=== PATIENT | female | born 1960 | race African-American/Black ===

== ENCOUNTER 2016-10-07 12:49 | Inpatient (IN) | payer SELFPAY ==
[~2016-10-07] VITALS: Ht 167.6 cm; Wt 76.0 kg
[2016-10-07] MEDS ORDERED: IPRATRPIUM/ALBUTEROL 0.5/2.5MG 3 ML NEBU. NEB ONE (13:30)
--- NOTE | 2016-10-07 13:31 | PHYS DOC ---
Past Medical History Past Medical History: No Pertinent History Past Surgical History: No Surgical History Alcohol Use: Occasionally Drug Use: None Adult General Chief Complaint Chief Complaint: MULTIPLE COMPLAINTS [facility] HPI Patient is a 56 year old -[place] female who presents with shortness of breath with exertion, nonproductive cough, right ear pain. She states she does smoke one pack of cigarettes lasts her one week she's done that for greater than 20 years. She states she sees [facility] for her healthcare is on no medications. She's never had have breathing treatments. She states she feels like she is wheezing. She denies any immobility, chest pain, or calf discomfort. Review of Systems Review of Systems Constitutional: Denies fever or chills [] Eyes: Denies change in visual acuity, redness, or eye pain [] HENT: Denies nasal congestion or sore throat [] Respiratory: Positive for cough and shortness of breath Cardiovascular: No additional information not addressed in HPI [] GI: Denies abdominal pain, nausea, vomiting, bloody stools or diarrhea [] : Denies dysuria or hematuria [] Musculoskeletal: Denies back pain or joint pain [] Integument: Denies rash or skin lesions [] Neurologic: Denies headache, focal weakness or sensory changes [] Endocrine: Denies polyuria or polydipsia [] Current Medications Current Medications Current Medications Medications (Trade) Dose Ordered Sig/Payal Start Time Stop Time Status Last Admin Dose Admin Albuterol/ Ipratropium (Duoneb) 3 ml 1X ONCE 10/07/16 13:30 10/07/16 13:31 DC 10/07/16 14:01 3 ML Allergies Allergies Allergies Coded Allergies Type Severity Reaction Last Updated Verified No Known Drug Allergies 10/02/15 No Physical Exam Physical Exam Constitutional: Well developed, well nourished, no acute distress, non-toxic appearance. [] HENT: Normocephalic, atraumatic, bilateral external ears normal, oropharynx moist, no oral exudates, nose normal. [] Eyes: PERRLA, EOMI, conjunctiva normal, no discharge. [] Neck: Normal range of motion, no tenderness, supple, no stridor. [] Cardiovascular:Heart rate regular rhythm, no murmur [] Lungs & Thorax: Bilateral breath sounds clear to auscultation, tachypnea, no wheezing Abdomen: Bowel sounds normal, soft, no tenderness, no masses, no pulsatile masses. [] Skin: Warm, dry, no erythema, no rash. [] Back: No tenderness, no CVA tenderness. [] Extremities: No tenderness, no cyanosis, no clubbing, ROM intact, no edema. [] Neurologic: Alert and oriented X 3, normal motor function, normal sensory function, no focal deficits noted. [] Psychologic: Affect normal, judgement normal, mood normal. [] Current Patient Data Vital Signs Vital Signs Date Time Temp Pulse Resp B/P (MAP) Pulse Ox O2 Delivery O2 Flow Rate FiO2 10/07/16 14:11 102 18 153/96 (115) 95 Room Air 10/07/16 13:11 97.8 97.8 Lab Values Laboratory Tests Test 10/07/16 13:40 10/07/16 14:04 White Blood Count 8.7 x10^3/uL (4.0-11.0) Red Blood Count 4.82 x10^6/uL (3.50-5.40) Hemoglobin 15.1 g/dL (12.0-15.5) Hematocrit 46.1 % (36.0-47.0) Mean Corpuscular Volume 96 fL (79-100) Mean Corpuscular Hemoglobin 31 pg (25-35) Mean Corpuscular Hemoglobin Concent 33 g/dL (31-37) Red Cell Distribution Width 13.7 % (11.5-14.5) Platelet Count 315 x10^3/uL (140-400) Neutrophils (%) (Auto) 72 % (31-73) Lymphocytes (%) (Auto) 13 % (24-48) L Monocytes (%) (Auto) 14 % (0-9) H Eosinophils (%) (Auto) 1 % (0-3) Basophils (%) (Auto) 1 % (0-3) Neutrophils # (Auto) 6.3 x10^3uL (1.8-7.7) Lymphocytes # (Auto) 1.1 x10^3/uL (1.0-4.8) Monocytes # (Auto) 1.2 x10^3/uL (0.0-1.1) H Eosinophils # (Auto) 0.1 x10^3/uL (0.0-0.7) Basophils # (Auto) 0.0 x10^3/uL (0.0-0.2) Prothrombin Time 14.4 SEC (11.7-14.0) H Prothrombin Time INR 1.2 (0.8-1.1) H D-Dimer (Amanda) 3.16 ug/mlFEU (0.00-0.50) H Sodium Level 140 mmol/L (136-145) Potassium Level 4.7 mmol/L (3.5-5.1) Chloride Level 100 mmol/L (98-107) Carbon Dioxide Level 28 mmol/L (21-32) Anion Gap 12 (6-14) Blood Urea Nitrogen 7 mg/dL (7-20) Creatinine 0.7 mg/dL (0.6-1.0) Estimated GFR (Cockcroft-Gault) 104.0 Glucose Level 104 mg/dL (70-99) H Calcium Level 11.1 mg/dL (8.5-10.1) H Magnesium Level 1.7 mg/dL (1.8-2.4) L Total Bilirubin 0.8 mg/dL (0.2-1.0) Direct Bilirubin 0.2 mg/dL (0.0-0.2) Aspartate Amino Transferase (AST) 47 U/L (15-37) H Alanine Aminotransferase (ALT) 38 U/L (14-59) Alkaline Phosphatase 134 U/L (46-116) H Creatine Kinase 59 U/L (26-192) Creatine Kinase MB (Mass) 0.5 ng/mL (0.0-3.6) Creatine Kinase MB Relative Index % (0-4) Troponin I Quantitative < 0.017 ng/mL (0.000-0.055) NL-Wpe-R-Type Natriuretic Peptide 155 pg/mL (0-124) H Total Protein 8.7 g/dL (6.4-8.2) H Albumin 3.4 g/dL (3.4-5.0) Lipase 66 U/L (73-393) L Thyroid Stimulating Hormone (TSH) 3.972 uIU/mL (0.358-3.74) H Urine Collection Type Unknown Urine Color [place] Urine Clarity Turbid Urine pH 5.5 Urine Specific [place] 1.025 Urine Protein Negative mg/dL (NEG-TRACE) Urine Glucose (UA) Negative mg/dL (NEG) Urine Ketones (Stick) 40 mg/dL (NEG) Urine Blood Negative (NEG) Urine Nitrite Negative (NEG) Urine Bilirubin Moderate (NEG) Urine Urobilinogen Dipstick 1.0 mg/dL (0.2 mg/dL) Urine Leukocyte Esterase Small (NEG) Urine RBC 0 /HPF (0-2) Urine WBC 1-4 /HPF (0-4) Urine Squamous Epithelial Cells Mod /LPF Urine Bacteria Moderate /HPF (0-FEW) Urine Mucus Mod /LPF Urine Opiates Screen Neg (NEG) Urine Methadone Screen Neg (NEG) Urine Barbiturates Neg (NEG) Urine Phencyclidine Screen Neg (NEG) Urine Amphetamine/Methamphetamine Neg (NEG) Urine Benzodiazepines Screen Neg (NEG) Urine Cocaine Screen Neg (NEG) Urine Cannabinoids Screen Neg (NEG) Urine Ethyl Alcohol Neg (NEG) Laboratory Tests 10/07/16 13:40 Laboratory Tests 10/07/16 13:40 EKG EKG EKG shows sinus rhythm with rate of [address] beats were without any ST elevations or T -wave inversions, normal axis, QTC 459 ms, as interpreted by me. Radiology/Procedures Radiology/Procedures [facility] [address] [place] [address] IMAGING REPORT Signed PATIENT: AR SANTAMARIA ACCOUNT: [id number] : 1960 LOCATION: ER AGE: 56 SEX: F EXAM STATUS: REG ER ORD. PHYSICIAN: LAZARO JULES MD REASON: soa PROCEDURE: PORTABLE CHEST 1V Portable AP upright chest x-ray performed at 1333 History: Shortness of air Comparison: May 23, 2004. Findings: There is a large left-sided pleural effusion occupying 3/4ths of the left pleural space. Certainly, an underlying pneumonia or neoplasm are possible. Right lung field is clear. No pneumothorax is seen. The right heart border and right mediastinal border are otherwise unremarkable. IMPRESSION: Large left-sided pleural effusion. DICTATED and SIGNED BY: FLORI JOYA MD DATE: 10/07/16 1342 CC: LAZARO JULES MD; NO PCP ~ ] Impressions: Short of breath Pleural effusion Elevated d-dimer Course & Med Decision Making Course & Med Decision Making Pertinent Labs and Imaging studies reviewed. (See chart for details) Patient has no past medical history but she does not have a primary care physician. She does use tobacco about one pack a week for the last 20 years. She is an elevated d-dimer however I suspect that secondary to her large pleural effusion. I spoke with interventional radiology regarding thoracentesis they deferred to pulmonary. I spoke with Dr. Long regarding consultation for the effusion admitted the patient to . I informed the admitting physician about the elevated d-dimer and the remainder of her labs and vital signs. Patient is moderately tachypneic however she stable at this time. She did receive an albuterol treatment without any improvement in her symptoms prior to the obtaining of the chest x-ray. Patient's in stable condition being admitted at this time. Dragon Disclaimer Dragon Disclaimer This electronic medical record was generated, in whole or in part, using a voice recognition dictation system. Departure Departure Referrals: NO PCP (PCP) Scripts No Active Prescriptions or Reported Meds LAZARO JULES MD Oct 07, 2016 13:31
--- NOTE | 2016-10-07 13:46 | RAD ---
Portable AP upright chest x-ray performed at 1333 History: Shortness of air Comparison: May 23, 2004. Findings: There is a large left-sided pleural effusion occupying 3/4ths of the left pleural space. Certainly, an underlying pneumonia or neoplasm are possible. Right lung field is clear. No pneumothorax is seen. The right heart border and right mediastinal border are otherwise unremarkable. IMPRESSION: Large left-sided pleural effusion.
[2016-10-07 13:48] LABS: BASO % 1 % (0-3); EOS % 1 % (0-3); HEMATOCRIT 46.1 % (36.0-47.0); HEMOGLOBIN 15.1 g/dL (12.0-15.5); LYMPH # 1.1 x10^3/uL (1.0-4.8); LYMPH % 13 % (24-48); MEAN CORPUSCULAR HEMOGLOBIN 31 pg (25-35); MEAN CORPUSCULAR HGB CONC 33 g/dL (31-37); MEAN CORPUSCULAR VOLUME 96 fL (79-100); MONO % 14 % (0-9); NEUT % 72 % (31-73); PLATELET COUNT 315 x10^3/uL (140-400); RED BLOOD COUNT 4.82 x10^6/uL (3.50-5.40); RED CELL DISTRIBUTION WIDTH 13.7 % (11.5-14.5); WHITE BLOOD COUNT 8.7 x10^3/uL (4.0-11.0)
[2016-10-07 13:59] LABS: CALCIUM 11.1 mg/dL (8.5-10.1); CREATININE 0.7 mg/dL (0.6-1.0); INR 1.2 (0.8-1.1); POTASSIUM 4.7 mmol/L (3.5-5.1); PROTHROMBIN TIME PATIENT 14.4 SEC (11.7-14.0)
[2016-10-07 14:05] LABS: ALBUMIN 3.4 g/dL (3.4-5.0); DIRECT BILIRUBIN 0.2 mg/dL (0.0-0.2); MAGNESIUM 1.7 mg/dL (1.8-2.4); TOTAL BILIRUBIN 0.8 mg/dL (0.2-1.0); TOTAL PROTEIN 8.7 g/dL (6.4-8.2)
--- NOTE | 2016-10-07 14:08 | EKG ---
[facility] [address] [place] [address] Test Date: 2016-10-07 Test Time: 13:49:19 Pat Name: AR SANTAMARIA Department: Room: Gender: F [employer]ures Tr[employer]: [place] : 1960 Requested By: LAZARO JULES Order Number: [id number] Reading MD: Kelly Corado Measurements Intervals [place] Rate: 88 P: 36 DE: 176 QRS: 3 QRSD: 78 T: 16 QT: 376 QTc: 459 Interpretive Statements SINUS RHYTHM NORMAL EKG Electronically Signed On 10-10-2016 21:02:58 CDT by Kelly Corado
[2016-10-07 14:13] LABS: BILIRUBIN,URINE MODERATE (NEG); GLUCOSE,URINE NEGATIVE (NEG); NITRITE,URINE NEGATIVE (NEG); PH,URINE 5.5; PROTEIN,URINE NEGATIVE (NEG-TRACE)
[2016-10-07 14:14] LABS: CKMB MASS 0.5 ng/mL (0.0-3.6)
[2016-10-07 14:15] LABS: CREATINE KINASE 59 U/L (26-192)
[2016-10-07 14:19] LABS: BARBITURATES NEG (NEG); BENZODIAZEPINES NEG (NEG); CANNABINOIDS NEG (NEG); COCAINE NEG (NEG); METHADONE NEG (NEG); OPIATES NEG (NEG); PHENCYCLIDINE NEG (NEG)
[2016-10-07 14:34] LABS: BACTERIA,URINE MODERATE /HPF (0-FEW); RBC,URINE 0 /HPF (0-2); SQUAMOUS EPITHELIAL CELL,UR MOD /LPF
[2016-10-07] MEDS ORDERED: DOCUSATE SODIUM 100 MG CAPSULE. PO PRN (15:45)
[2016-10-07] MEDS ORDERED: MAGNESIUM SULFATE 2GM 50 ML IV ONE (15:45)
[2016-10-07] MEDS ORDERED: NICOTINE 7MG PATCH. TD PRN (15:45)
[2016-10-07] MEDS ORDERED: hydrALAZINE 20 MG/ML VIAL. IVP PRN (15:45)
[2016-10-07] MEDS ORDERED: ACETAMINOPHEN 325 MG TABLET. PO PRN (15:45)
[2016-10-07] MEDS ORDERED: ALBUTEROL SULFATE 2.5 MG/3 ML NEBU. NEB PRN (15:45)
[2016-10-07] MEDS ORDERED: ONDANSETRON PF 4 MG/2 ML VIAL. IV PRN (15:45)
--- NOTE | 2016-10-07 15:48 | PDOC1 ---
History and Physical Date of Admission Date of Admission 10/07/16 Identification/Chief Complaint Chief Complaint chest pain, sob Problems: Source Source: Chart review, Patient History of Present Illness History of Present Illness Patient is a 56 year old -[place] female who presents with shortness of breath and chest pain for 4 days. Pt is a poor historian. no PCp, not taking any home meds, <1PPD. She said she feels left side chest pain, cough, no sputum, with sob, also has runny nose, ear pain, headache, right neck pain, sore throat, hard to swallow food and low po intake. Lost 2 pounds recently. Denies fever, chills, N/V, abd pain, constipation. no sick contact. diarrhea 2 days ago. ER cxr SHOWED large left side pleural effusion. Past Medical History Past Medical History none Past Surgical History Past Surgical History: No pertinent history Family History Family History stroke, lupus Social History Smoke: <1 pack per day ALCOHOL: other (every other day, 4 beers each time) Drugs: None Current Medications Current Medications Current Medications Medications (Trade) Dose Ordered Sig/Payal Start Time Stop Time Status Last Admin Dose Admin Albuterol/ Ipratropium (Duoneb) 3 ml 1X ONCE 10/07/16 13:30 10/07/16 13:31 DC 10/07/16 14:01 3 ML Allergies Allergies Allergies Coded Allergies Type Severity Reaction Last Updated Verified No Known Drug Allergies 10/02/15 No ROS Review of System CONSTITUTIONAL: No fever or chills EYES: No recent changes SKIN: No rash or itching CARDIOVASCULAR: No chest pain, syncope, palpitations, or edema RESPIRATORY: No SOB or cough GASTROINTESTINAL: No nausea, vomiting or abdominal pain NEUROLOGICAL: No headaches or weakness ENDOCRINE: No cold or heat intolerance GENITOURINARY: No urgency or frequency of urination MUSCULOSKELETAL: No back pain or joint pain LYMPHATICS: No enlarged lymph nodes PSYCHIATRIC: No anxiety or depression Physical Exam Physical Exam GEN.: No apparent distress. Alert and oriented. HEENT: Head is normocephalic, atraumatic NECK: Supple. LUNGS: left side severe decreased BS. no crackles or wheezing. HEART: RRR, S1, S2 present. Peripheral pulses intact ABDOMEN: Soft, nontender. Positive bowel sounds. EXTREMITIES: Without any cyanosis. NEUROLOGIC: Normal speech, normal tone PSYCHIATRIC: Normal affect, normal mood. SKIN: No ulcerations Vitals Vitals Vital Signs Date Time Temp Pulse Resp B/P (MAP) Pulse Ox O2 Delivery O2 Flow Rate FiO2 10/07/16 15:23 102 18 141/98 (112) 96 Room Air 10/07/16 13:11 97.8 97.8 Labs Labs Laboratory Tests Test 10/07/16 13:40 10/07/16 14:04 White Blood Count 8.7 x10^3/uL (4.0-11.0) Red Blood Count 4.82 x10^6/uL (3.50-5.40) Hemoglobin 15.1 g/dL (12.0-15.5) Hematocrit 46.1 % (36.0-47.0) Mean Corpuscular Volume 96 fL (79-100) Mean Corpuscular Hemoglobin 31 pg (25-35) Mean Corpuscular Hemoglobin Concent 33 g/dL (31-37) Red Cell Distribution Width 13.7 % (11.5-14.5) Platelet Count 315 x10^3/uL (140-400) Neutrophils (%) (Auto) 72 % (31-73) Lymphocytes (%) (Auto) 13 % (24-48) Monocytes (%) (Auto) 14 % (0-9) Eosinophils (%) (Auto) 1 % (0-3) Basophils (%) (Auto) 1 % (0-3) Neutrophils # (Auto) 6.3 x10^3uL (1.8-7.7) Lymphocytes # (Auto) 1.1 x10^3/uL (1.0-4.8) Monocytes # (Auto) 1.2 x10^3/uL (0.0-1.1) Eosinophils # (Auto) 0.1 x10^3/uL (0.0-0.7) Basophils # (Auto) 0.0 x10^3/uL (0.0-0.2) Prothrombin Time 14.4 SEC (11.7-14.0) Prothromb Time International Ratio 1.2 (0.8-1.1) D-Dimer (Amanda) 3.16 ug/mlFEU (0.00-0.50) Sodium Level 140 mmol/L (136-145) Potassium Level 4.7 mmol/L (3.5-5.1) Chloride Level 100 mmol/L (98-107) Carbon Dioxide Level 28 mmol/L (21-32) Anion Gap 12 (6-14) Blood Urea Nitrogen 7 mg/dL (7-20) Creatinine 0.7 mg/dL (0.6-1.0) Estimated GFR (Cockcroft-Gault) 104.0 Glucose Level 104 mg/dL (70-99) Calcium Level 11.1 mg/dL (8.5-10.1) Magnesium Level 1.7 mg/dL (1.8-2.4) Total Bilirubin 0.8 mg/dL (0.2-1.0) Direct Bilirubin 0.2 mg/dL (0.0-0.2) Aspartate Amino Transf (AST/SGOT) 47 U/L (15-37) Alanine Aminotransferase (ALT/SGPT) 38 U/L (14-59) Alkaline Phosphatase 134 U/L (46-116) Creatine Kinase 59 U/L (26-192) Creatine Kinase MB (Mass) 0.5 ng/mL (0.0-3.6) Creatine Kinase MB Relative Index % (0-4) Troponin I Quantitative < 0.017 ng/mL (0.000-0.055) RF-Aje-E-Type Natriuretic Peptide 155 pg/mL (0-124) Total Protein 8.7 g/dL (6.4-8.2) Albumin 3.4 g/dL (3.4-5.0) Lipase 66 U/L (73-393) Thyroid Stimulating Hormone (TSH) 3.972 uIU/mL (0.358-3.74) Urine Collection Type Unknown Urine Color [place] Urine Clarity Turbid Urine pH 5.5 Urine Specific [place] 1.025 Urine Protein Negative mg/dL (NEG-TRACE) Urine Glucose (UA) Negative mg/dL (NEG) Urine Ketones (Stick) 40 mg/dL (NEG) Urine Blood Negative (NEG) Urine Nitrite Negative (NEG) Urine Bilirubin Moderate (NEG) Urine Urobilinogen Dipstick 1.0 mg/dL (0.2 mg/dL) Urine Leukocyte Esterase Small (NEG) Urine RBC 0 /HPF (0-2) Urine WBC 1-4 /HPF (0-4) Urine Squamous Epithelial Cells Mod /LPF Urine Bacteria Moderate /HPF (0-FEW) Urine Mucus Mod /LPF Urine Opiates Screen Neg (NEG) Urine Methadone Screen Neg (NEG) Urine Barbiturates Neg (NEG) Urine Phencyclidine Screen Neg (NEG) Urine Amphetamine/Methamphetamine Neg (NEG) Urine Benzodiazepines Screen Neg (NEG) Urine Cocaine Screen Neg (NEG) Urine Cannabinoids Screen Neg (NEG) Urine Ethyl Alcohol Neg (NEG) Laboratory Tests Test 10/07/16 13:40 10/07/16 14:04 White Blood Count 8.7 x10^3/uL (4.0-11.0) Red Blood Count 4.82 x10^6/uL (3.50-5.40) Hemoglobin 15.1 g/dL (12.0-15.5) Hematocrit 46.1 % (36.0-47.0) Mean Corpuscular Volume 96 fL (79-100) Mean Corpuscular Hemoglobin 31 pg (25-35) Mean Corpuscular Hemoglobin Concent 33 g/dL (31-37) Red Cell Distribution Width 13.7 % (11.5-14.5) Platelet Count 315 x10^3/uL (140-400) Neutrophils (%) (Auto) 72 % (31-73) Lymphocytes (%) (Auto) 13 % (24-48) Monocytes (%) (Auto) 14 % (0-9) Eosinophils (%) (Auto) 1 % (0-3) Basophils (%) (Auto) 1 % (0-3) Neutrophils # (Auto) 6.3 x10^3uL (1.8-7.7) Lymphocytes # (Auto) 1.1 x10^3/uL (1.0-4.8) Monocytes # (Auto) 1.2 x10^3/uL (0.0-1.1) Eosinophils # (Auto) 0.1 x10^3/uL (0.0-0.7) Basophils # (Auto) 0.0 x10^3/uL (0.0-0.2) Prothrombin Time 14.4 SEC (11.7-14.0) Prothromb Time International Ratio 1.2 (0.8-1.1) D-Dimer (Amanda) 3.16 ug/mlFEU (0.00-0.50) Sodium Level 140 mmol/L (136-145) Potassium Level 4.7 mmol/L (3.5-5.1) Chloride Level 100 mmol/L (98-107) Carbon Dioxide Level 28 mmol/L (21-32) Anion Gap 12 (6-14) Blood Urea Nitrogen 7 mg/dL (7-20) Creatinine 0.7 mg/dL (0.6-1.0) Estimated GFR (Cockcroft-Gault) 104.0 Glucose Level 104 mg/dL (70-99) Calcium Level 11.1 mg/dL (8.5-10.1) Magnesium Level 1.7 mg/dL (1.8-2.4) Total Bilirubin 0.8 mg/dL (0.2-1.0) Direct Bilirubin 0.2 mg/dL (0.0-0.2) Aspartate Amino Transf (AST/SGOT) 47 U/L (15-37) Alanine Aminotransferase (ALT/SGPT) 38 U/L (14-59) Alkaline Phosphatase 134 U/L (46-116) Creatine Kinase 59 U/L (26-192) Creatine Kinase MB (Mass) 0.5 ng/mL (0.0-3.6) Creatine Kinase MB Relative Index % (0-4) Troponin I Quantitative < 0.017 ng/mL (0.000-0.055) LB-Keq-R-Type Natriuretic Peptide 155 pg/mL (0-124) Total Protein 8.7 g/dL (6.4-8.2) Albumin 3.4 g/dL (3.4-5.0) Lipase 66 U/L (73-393) Thyroid Stimulating Hormone (TSH) 3.972 uIU/mL (0.358-3.74) Urine Collection Type Unknown Urine Color [place] Urine Clarity Turbid Urine pH 5.5 Urine Specific [place] 1.025 Urine Protein Negative mg/dL (NEG-TRACE) Urine Glucose (UA) Negative mg/dL (NEG) Urine Ketones (Stick) 40 mg/dL (NEG) Urine Blood Negative (NEG) Urine Nitrite Negative (NEG) Urine Bilirubin Moderate (NEG) Urine Urobilinogen Dipstick 1.0 mg/dL (0.2 mg/dL) Urine Leukocyte Esterase Small (NEG) Urine RBC 0 /HPF (0-2) Urine WBC 1-4 /HPF (0-4) Urine Squamous Epithelial Cells Mod /LPF Urine Bacteria Moderate /HPF (0-FEW) Urine Mucus Mod /LPF Urine Opiates Screen Neg (NEG) Urine Methadone Screen Neg (NEG) Urine Barbiturates Neg (NEG) Urine Phencyclidine Screen Neg (NEG) Urine Amphetamine/Methamphetamine Neg (NEG) Urine Benzodiazepines Screen Neg (NEG) Urine Cocaine Screen Neg (NEG) Urine Cannabinoids Screen Neg (NEG) Urine Ethyl Alcohol Neg (NEG) VTE Prophylaxis Ordered VTE Prophylaxis Devices: No VTE Pharmacological Prophylaxi: Yes Assessment/Plan Assessment/Plan sob with left side pleural effusion, need to rule out malignancy given smoking hypercalcemia hypomagnesemia URI likely 2/2 viral infection tobaccoism SIRS with viral bronchitis likely plan: pulm, IR consult for thoracentesis replete MAG labs tmr duoneb, cough meds, albuterol prn echo check t4, given high tsh dvt ppx admit >2 night MANUEL GENAO MD Oct 07, 2016 15:48
[2016-10-07] MEDS: IPRATRPIUM/ALBUTEROL 0.5/2.5MG 3 ML NEBU. NEB SCH ×2 (16:17→20:30)
[2016-10-07 17:15] VITALS: BP 149/92
[2016-10-07 19:25] VITALS: BP 120/84
[2016-10-07] MEDS: BENZOCAINE/MENTHOL LOZENGE. PO PRN (21:09)
[2016-10-07] MEDS: traMADol 50 MG TABLET PO PRN (21:09)
[2016-10-07] MEDS ORDERED: HEPARIN PF for SUB-Q USE 5,000 UNIT/0.5 ML VIAL. SQ SCH (22:00)
[2016-10-07 23:30] VITALS: BP 133/90
[2016-10-08] VITALS (15 sets, daily range): BP systolic 109–157; BP diastolic 61–98
[2016-10-08 06:00] LABS: BASO # 0.1 x10^3/uL (0.0-0.2); BASO % 1 % (0-3); EOS % 1 % (0-3); HEMATOCRIT 42.4 % (36.0-47.0); HEMOGLOBIN 14.1 g/dL (12.0-15.5); LYMPH # 1.6 x10^3/uL (1.0-4.8); LYMPH % 18 % (24-48); MEAN CORPUSCULAR HEMOGLOBIN 32 pg (25-35); MEAN CORPUSCULAR HGB CONC 33 g/dL (31-37); MEAN CORPUSCULAR VOLUME 95 fL (79-100); MONO % 17 % (0-9); NEUT % 63 % (31-73); PLATELET COUNT 298 x10^3/uL (140-400); RED BLOOD COUNT 4.44 x10^6/uL (3.50-5.40); RED CELL DISTRIBUTION WIDTH 13.7 % (11.5-14.5); WHITE BLOOD COUNT 9.1 x10^3/uL (4.0-11.0)
[2016-10-08 06:26] LABS: CALCIUM 11.2 mg/dL (8.5-10.1); CREATININE 0.6 mg/dL (0.6-1.0); GFR 124.2; POTASSIUM 4.2 mmol/L (3.5-5.1)
[2016-10-08] MEDS: IPRATRPIUM/ALBUTEROL 0.5/2.5MG 3 ML NEBU. NEB SCH ×4 (06:53→19:30)
[2016-10-08] MEDS: traMADol 50 MG TABLET PO PRN ×3 (08:07→20:40)
--- NOTE | 2016-10-08 08:59 | PDOC2 ---
Pulmonary Consultation pleural effusion Problems: (1) SOB (shortness of breath) Medical History pt presents with soa, cough, 4 Lb wt loss. smoker for 20 years. no known cancer. CXR with large left effusion.non productive cough Surgical History no recent surgeries Medications Current Medications Albuterol/ Ipratropium (Duoneb) 3 ml 1X ONCE NEB Last administered on 14:01; Start 10/07/16 at 13:30; Stop 10/07/16 at 13:31; Status DC Acetaminophen (Tylenol) 650 mg PRN Q6HRS PRN PO FEVER; Start 10/07/16 at 15:45 Ondansetron HCl (Zofran) 4 mg PRN Q6HRS PRN IV NAUSEA/VOMITING; Start 10/07/16 at 15:45 Morphine Sulfate 2 mg PRN Q2HR PRN IV PAIN; Start 10/07/16 at 15:45 Tramadol HCl (Ultram) 50 mg PRN Q6HRS PRN PO PAIN Last administered on 08:07; Start 10/07/16 at 15:45 Hydralazine HCl (Apresoline) 10 mg PRN Q4HRS PRN IVP ELEVATED BP, SEE COMMENTS ; Start 10/07/16 at 15:45 Docusate Sodium (Colace) 100 mg PRN DAILY PRN PO CONSTIPATION; Start 10/07/16 at 15:45 Albuterol/ Ipratropium (Duoneb) 3 ml RTQID NEB Last administered on 10/08/16 06:53; Start 10/07/16 at 16:00 Albuterol Sulfate (Ventolin Neb Soln) 2.5 mg PRN Q2HR PRN NEB SHORTNESS OF BREATH; Start 10/07/16 at 15:45 Guaifenesin (Mucinex) 600 mg BID PO Last administered on 10/07/16 21:09; Start 10/07/16 at 21:00 Nicotine (Nicoderm Cq 7mg) 1 patch PRN DAILY PRN TD SMOKING CESSATION; Start at 15:45 Heparin Sodium (Porcine) (Heparin Sq) 5,000 unit Q8HRS SQ Last administered on 10/07/16 21:17; Start 10/07/16 at 22:00; Stop 10/07/16 at 23:07; Status DC Throat Lozenges (Cepacol Sore Throat Lozenge) 1 moises PRN Q2HRS PRN PO SORE THROAT Last administered on 10/07/16 21:09; Start 10/07/16 at 15:45 Magnesium Sulfate/ Dextrose 50 ml @ 25 mls/hr 1X ONCE IV Last administered on 10/07/16 16:03; Start 10/07/16 at 15:45; Stop 10/07/16 at 17:44; Status DC Active Scripts Active No Active Prescriptions or Reported Medications Allergies Allergies Coded Allergies Type Severity Reaction Last Updated Verified No Known Drug Allergies 10/02/15 No Social History smoker for 20 years Family History non contributry to lungs System Review as discussed in my present illness Vital Signs Vital Signs Date Time Temp Pulse Resp B/P (MAP) Pulse Ox O2 Delivery O2 Flow Rate FiO2 10/08/16 08:07 99 Room Air 10/08/16 07:54 97.6 97 18 116/88 (97) 97.6 Last Labs Laboratory Tests Test 10/07/16 13:40 10/07/16 14:04 10/07/16 21:35 10/08/16 05:15 White Blood Count 8.7 x10^3/uL (4.0-11.0) Red Blood Count 4.82 x10^6/uL (3.50-5.40) Hemoglobin 15.1 g/dL (12.0-15.5) Hematocrit 46.1 % (36.0-47.0) Mean Corpuscular Volume 96 fL (79-100) Mean Corpuscular Hemoglobin 31 pg (25-35) Mean Corpuscular Hemoglobin Concent 33 g/dL (31-37) Red Cell Distribution Width 13.7 % (11.5-14.5) Platelet Count 315 x10^3/uL (140-400) Neutrophils (%) (Auto) 72 % (31-73) Lymphocytes (%) (Auto) 13 % (24-48) Monocytes (%) (Auto) 14 % (0-9) Eosinophils (%) (Auto) 1 % (0-3) Basophils (%) (Auto) 1 % (0-3) Neutrophils # (Auto) 6.3 x10^3uL (1.8-7.7) Lymphocytes # (Auto) 1.1 x10^3/uL (1.0-4.8) Monocytes # (Auto) 1.2 x10^3/uL (0.0-1.1) Eosinophils # (Auto) 0.1 x10^3/uL (0.0-0.7) Basophils # (Auto) 0.0 x10^3/uL (0.0-0.2) Prothrombin Time 14.4 SEC (11.7-14.0) Prothromb Time International Ratio 1.2 (0.8-1.1) D-Dimer (Amanda) 3.16 ug/mlFEU (0.00-0.50) Sodium Level 140 mmol/L (136-145) Potassium Level 4.7 mmol/L (3.5-5.1) Chloride Level 100 mmol/L (98-107) Carbon Dioxide Level 28 mmol/L (21-32) Anion Gap 12 (6-14) Blood Urea Nitrogen 7 mg/dL (7-20) Creatinine 0.7 mg/dL (0.6-1.0) Estimated GFR (Cockcroft-Gault) 104.0 Glucose Level 104 mg/dL (70-99) Calcium Level 11.1 mg/dL (8.5-10.1) Magnesium Level 1.7 mg/dL (1.8-2.4) Total Bilirubin 0.8 mg/dL (0.2-1.0) Direct Bilirubin 0.2 mg/dL (0.0-0.2) Aspartate Amino Transf (AST/SGOT) 47 U/L (15-37) Alanine Aminotransferase (ALT/SGPT) 38 U/L (14-59) Alkaline Phosphatase 134 U/L (46-116) Creatine Kinase 59 U/L (26-192) Creatine Kinase MB (Mass) 0.5 ng/mL (0.0-3.6) Creatine Kinase MB Relative Index % (0-4) Troponin I Quantitative < 0.017 ng/mL (0.000-0.055) < 0.017 ng/mL (0.000-0.055) YF-Les-V-Type Natriuretic Peptide 155 pg/mL (0-124) Total Protein 8.7 g/dL (6.4-8.2) Albumin 3.4 g/dL (3.4-5.0) Lipase 66 U/L (73-393) Thyroid Stimulating Hormone (TSH) 3.972 uIU/mL (0.358-3.74) Urine Collection Type Unknown Urine Color [place] Urine Clarity Turbid Urine pH 5.5 Urine Specific [place] 1.025 Urine Protein Negative mg/dL (NEG-TRACE) Urine Glucose (UA) Negative mg/dL (NEG) Urine Ketones (Stick) 40 mg/dL (NEG) Urine Blood Negative (NEG) Urine Nitrite Negative (NEG) Urine Bilirubin Moderate (NEG) Urine Urobilinogen Dipstick 1.0 mg/dL (0.2 mg/dL) Urine Leukocyte Esterase Small (NEG) Urine RBC 0 /HPF (0-2) Urine WBC 1-4 /HPF (0-4) Urine Squamous Epithelial Cells Mod /LPF Urine Bacteria Moderate /HPF (0-FEW) Urine Mucus Mod /LPF Urine Opiates Screen Neg (NEG) Urine Methadone Screen Neg (NEG) Urine Barbiturates Neg (NEG) Urine Phencyclidine Screen Neg (NEG) Urine Amphetamine/Methamphetamine Neg (NEG) Urine Benzodiazepines Screen Neg (NEG) Urine Cocaine Screen Neg (NEG) Urine Cannabinoids Screen Neg (NEG) Urine Ethyl Alcohol Neg (NEG) Free Thyroxine 1.27 ng/dL (0.76-1.46) Test 10/08/16 05:20 White Blood Count 9.1 x10^3/uL (4.0-11.0) Red Blood Count 4.44 x10^6/uL (3.50-5.40) Hemoglobin 14.1 g/dL (12.0-15.5) Hematocrit 42.4 % (36.0-47.0) Mean Corpuscular Volume 95 fL (79-100) Mean Corpuscular Hemoglobin 32 pg (25-35) Mean Corpuscular Hemoglobin Concent 33 g/dL (31-37) Red Cell Distribution Width 13.7 % (11.5-14.5) Platelet Count 298 x10^3/uL (140-400) Neutrophils (%) (Auto) 63 % (31-73) Lymphocytes (%) (Auto) 18 % (24-48) Monocytes (%) (Auto) 17 % (0-9) Eosinophils (%) (Auto) 1 % (0-3) Basophils (%) (Auto) 1 % (0-3) Neutrophils # (Auto) 5.7 x10^3uL (1.8-7.7) Lymphocytes # (Auto) 1.6 x10^3/uL (1.0-4.8) Monocytes # (Auto) 1.5 x10^3/uL (0.0-1.1) Eosinophils # (Auto) 0.1 x10^3/uL (0.0-0.7) Basophils # (Auto) 0.1 x10^3/uL (0.0-0.2) Sodium Level 140 mmol/L (136-145) Potassium Level 4.2 mmol/L (3.5-5.1) Chloride Level 101 mmol/L (98-107) Carbon Dioxide Level 28 mmol/L (21-32) Anion Gap 11 (6-14) Blood Urea Nitrogen 10 mg/dL (7-20) Creatinine 0.6 mg/dL (0.6-1.0) Estimated GFR (Cockcroft-Gault) 124.2 Glucose Level 106 mg/dL (70-99) Calcium Level 11.2 mg/dL (8.5-10.1) Troponin I Quantitative < 0.017 ng/mL (0.000-0.055) Chest X-rays large left effusion Assessment Large left sided effusion in a smoker with weight loss, suspect malignancy ? infectious etiology of left effusion hypercalcemia of malignancy Plan ct guided left thoracentesis R/B explained. she agrees ct chest ,abd/pelvis post thoracentesis review analysis of effusion further recommendations to follow DARIELA العلي MD Oct 08, 2016 08:59
--- NOTE | 2016-10-08 09:35 | ACF ---
Admit Criteria Forms Admit Criteria Forms Admit Criteria Forms PLEURAL EFFUSION Clinical Indications for Admission to Inpatient Care (Place 'X' for any and all applicable criteria): Admission is indicated for 1 or more of the following (1)(2)(3): [ X]I. Pneumonia-related effusion requiring drainage as indicated by 1 or more of the following [A]: [X ]a) Large pleural effusion (symptomatic or greater than one-half of hemithorax) [ ]b) Loculated effusion [ ]c) Pleural fluid analysis results, including ANY ONE of the following: [ ]i) Positive Gram stain or culture for bacteria [ ]ii) Pus [ ]iii) pH less than 7.20 [ ]d) Parapneumonic effusion with glucose less than 60 mg/dL (3.33 mmol/L) [ ]II. Inpatient admission required rather than observation care (Also use Pleural Effusion: Observation Care criteria as appropriate) because of 1 or more of the following: [ ]1) Hemodynamic instability [ ]2) Respiratory findings (Tachypnea, dyspnea) that persist despite observation care treatment [ ]3) Hypoxemia or hypercapnia that persists despite observation care treatment [ ]4) Complication of drainage (e.g., pneumothorax) that requires inpatient care [ ]5) Etiology that requires inpatient care (e.g., pulmonary embolism, trauma) [ ]6) Severe pain requiring acute inpatient management [ ]7) Chest tube placement with active evacuation (eg, suction, drainage) [ ]8) Pulmonary artery catheter monitoring [ ]9) Epidural analgesia(7) [ ]10) Immediate inpatient surgery [ X]11) Other condition, treatment, or monitoring requiring inpatient admission [ ]III. Hemothorax [ ]IV. Empyema [ ]V. Pleural effusion with concomitant pneumothorax [ ]. Recurrent or malignant pleural effusion requiring pleurodesis (4) [ ]VII. Respiratory distress Extended stay beyond goal length of stay may be needed for (27)(28): [ ]a) Empyema or complicated parapneumonic effusion (24)(29) [ ]b) Malignant pleural effusion (4) [ ]c) Pleural effusion due to trauma or perforated esophagus [ ]d) Pleural effusion due to pulmonary embolism (30) [ ]e) Clinically significant re-expansion pulmonary edema [ ]f) Hemothorax [ ]g) Renal failure [ ]h) Complications of thoracentesis, thoracostomy tube, or pleural cath. placement [ ]j) Trapped lung (e.g., benign or malignant thickened pleura preventing lung re-expansion) (31) [ ]i) Underlying etiology necessitates ongoing inpatient care (e.g., pneumonia, heart failure, malignancy) The original [facility] content created by [facility] has been revised. The portions of the content which have been revised are identified through the use of italic text, and [facility] has neither reviewed nor approved the modified material. All other unmodified content is copyright [facility]. Please see references footnoted in the original [facility] edition 2014 ALEKASNDAR KAMARA Oct 08, 2016 09:35
[2016-10-08] MEDS ORDERED: LIDOCAINE 1% / SOD BICARB 8.4% 20 ML VIAL. IJ ONE ×2 (12:39→13:30)
[2016-10-08] MEDS ORDERED: MIDAZOLAM HCL/PF 5 MG/5 ML VIAL. ONE (13:05)
[2016-10-08] MEDS ORDERED: fentaNYL PF VIAL 250 MCG/5 ML VIAL ONE (13:05)
--- NOTE | 2016-10-08 13:10 | PDOC ---
PROGRESS NOTES Chief Complaint Chief Complaint sob with left side pleural effusion, need to rule out malignancy given smoking hypercalcemia 2/2 malignancy? hypomagnesemia URI likely 2/2 viral infection tobaccoism SIRS with viral bronchitis likely plan: pulm, IR consult for thoracentesis 10/07 replete MAG labs tmr duoneb, cough meds, albuterol prn echo high tsh, t4 normal dvt ppx may need lee CT as per pulm check mag, vitd History of Present Illness History of Present Illness feels neck pain slighlty better, waiting for thoracentesis. desat on RA with sob Vitals Vitals Vital Signs Date Time Temp Pulse Resp B/P (MAP) Pulse Ox O2 Delivery O2 Flow Rate FiO2 10/08/16 12:52 90 Room Air 10/08/16 10:54 98.0 89 19 117/91 (100) 98.0 Physical Exam General: Alert, Oriented X3, Cooperative Heart: Regular rate, Normal S1, Normal S2 Lungs: Other (left side decreased bs) Abdomen: Normal bowel sounds, Soft, No tenderness Extremities: No clubbing, No cyanosis Skin: No rashes Labs LABS Laboratory Tests Test 10/07/16 13:40 10/07/16 14:04 10/07/16 21:35 10/08/16 05:15 White Blood Count 8.7 x10^3/uL (4.0-11.0) Red Blood Count 4.82 x10^6/uL (3.50-5.40) Hemoglobin 15.1 g/dL (12.0-15.5) Hematocrit 46.1 % (36.0-47.0) Mean Corpuscular Volume 96 fL (79-100) Mean Corpuscular Hemoglobin 31 pg (25-35) Mean Corpuscular Hemoglobin Concent 33 g/dL (31-37) Red Cell Distribution Width 13.7 % (11.5-14.5) Platelet Count 315 x10^3/uL (140-400) Neutrophils (%) (Auto) 72 % (31-73) Lymphocytes (%) (Auto) 13 % (24-48) Monocytes (%) (Auto) 14 % (0-9) Eosinophils (%) (Auto) 1 % (0-3) Basophils (%) (Auto) 1 % (0-3) Neutrophils # (Auto) 6.3 x10^3uL (1.8-7.7) Lymphocytes # (Auto) 1.1 x10^3/uL (1.0-4.8) Monocytes # (Auto) 1.2 x10^3/uL (0.0-1.1) Eosinophils # (Auto) 0.1 x10^3/uL (0.0-0.7) Basophils # (Auto) 0.0 x10^3/uL (0.0-0.2) Prothrombin Time 14.4 SEC (11.7-14.0) Prothromb Time International Ratio 1.2 (0.8-1.1) D-Dimer (Amanda) 3.16 ug/mlFEU (0.00-0.50) Sodium Level 140 mmol/L (136-145) Potassium Level 4.7 mmol/L (3.5-5.1) Chloride Level 100 mmol/L (98-107) Carbon Dioxide Level 28 mmol/L (21-32) Anion Gap 12 (6-14) Blood Urea Nitrogen 7 mg/dL (7-20) Creatinine 0.7 mg/dL (0.6-1.0) Estimated GFR (Cockcroft-Gault) 104.0 Glucose Level 104 mg/dL (70-99) Calcium Level 11.1 mg/dL (8.5-10.1) Magnesium Level 1.7 mg/dL (1.8-2.4) Total Bilirubin 0.8 mg/dL (0.2-1.0) Direct Bilirubin 0.2 mg/dL (0.0-0.2) Aspartate Amino Transf (AST/SGOT) 47 U/L (15-37) Alanine Aminotransferase (ALT/SGPT) 38 U/L (14-59) Alkaline Phosphatase 134 U/L (46-116) Creatine Kinase 59 U/L (26-192) Creatine Kinase MB (Mass) 0.5 ng/mL (0.0-3.6) Creatine Kinase MB Relative Index % (0-4) Troponin I Quantitative < 0.017 ng/mL (0.000-0.055) < 0.017 ng/mL (0.000-0.055) AB-Aea-Z-Type Natriuretic Peptide 155 pg/mL (0-124) Total Protein 8.7 g/dL (6.4-8.2) Albumin 3.4 g/dL (3.4-5.0) Lipase 66 U/L (73-393) Thyroid Stimulating Hormone (TSH) 3.972 uIU/mL (0.358-3.74) Urine Collection Type Unknown Urine Color Raymond Urine Clarity Turbid Urine pH 5.5 Urine Specific Norvell 1.025 Urine Protein Negative mg/dL (NEG-TRACE) Urine Glucose (UA) Negative mg/dL (NEG) Urine Ketones (Stick) 40 mg/dL (NEG) Urine Blood Negative (NEG) Urine Nitrite Negative (NEG) Urine Bilirubin Moderate (NEG) Urine Urobilinogen Dipstick 1.0 mg/dL (0.2 mg/dL) Urine Leukocyte Esterase Small (NEG) Urine RBC 0 /HPF (0-2) Urine WBC 1-4 /HPF (0-4) Urine Squamous Epithelial Cells Mod /LPF Urine Bacteria Moderate /HPF (0-FEW) Urine Mucus Mod /LPF Urine Opiates Screen Neg (NEG) Urine Methadone Screen Neg (NEG) Urine Barbiturates Neg (NEG) Urine Phencyclidine Screen Neg (NEG) Urine Amphetamine/Methamphetamine Neg (NEG) Urine Benzodiazepines Screen Neg (NEG) Urine Cocaine Screen Neg (NEG) Urine Cannabinoids Screen Neg (NEG) Urine Ethyl Alcohol Neg (NEG) Free Thyroxine 1.27 ng/dL (0.76-1.46) Test 10/08/16 05:20 White Blood Count 9.1 x10^3/uL (4.0-11.0) Red Blood Count 4.44 x10^6/uL (3.50-5.40) Hemoglobin 14.1 g/dL (12.0-15.5) Hematocrit 42.4 % (36.0-47.0) Mean Corpuscular Volume 95 fL (79-100) Mean Corpuscular Hemoglobin 32 pg (25-35) Mean Corpuscular Hemoglobin Concent 33 g/dL (31-37) Red Cell Distribution Width 13.7 % (11.5-14.5) Platelet Count 298 x10^3/uL (140-400) Neutrophils (%) (Auto) 63 % (31-73) Lymphocytes (%) (Auto) 18 % (24-48) Monocytes (%) (Auto) 17 % (0-9) Eosinophils (%) (Auto) 1 % (0-3) Basophils (%) (Auto) 1 % (0-3) Neutrophils # (Auto) 5.7 x10^3uL (1.8-7.7) Lymphocytes # (Auto) 1.6 x10^3/uL (1.0-4.8) Monocytes # (Auto) 1.5 x10^3/uL (0.0-1.1) Eosinophils # (Auto) 0.1 x10^3/uL (0.0-0.7) Basophils # (Auto) 0.1 x10^3/uL (0.0-0.2) Sodium Level 140 mmol/L (136-145) Potassium Level 4.2 mmol/L (3.5-5.1) Chloride Level 101 mmol/L (98-107) Carbon Dioxide Level 28 mmol/L (21-32) Anion Gap 11 (6-14) Blood Urea Nitrogen 10 mg/dL (7-20) Creatinine 0.6 mg/dL (0.6-1.0) Estimated GFR (Cockcroft-Gault) 124.2 Glucose Level 106 mg/dL (70-99) Calcium Level 11.2 mg/dL (8.5-10.1) Troponin I Quantitative < 0.017 ng/mL (0.000-0.055) Review of Systems Review of Systems no fever, chills, sob or chest pain Comment Review of Relevant I have reviewed the following items fausto (where applicable) has been applied. Labs Laboratory Tests Test 10/07/16 13:40 10/07/16 14:04 10/07/16 21:35 10/08/16 05:15 White Blood Count 8.7 x10^3/uL (4.0-11.0) Red Blood Count 4.82 x10^6/uL (3.50-5.40) Hemoglobin 15.1 g/dL (12.0-15.5) Hematocrit 46.1 % (36.0-47.0) Mean Corpuscular Volume 96 fL (79-100) Mean Corpuscular Hemoglobin 31 pg (25-35) Mean Corpuscular Hemoglobin Concent 33 g/dL (31-37) Red Cell Distribution Width 13.7 % (11.5-14.5) Platelet Count 315 x10^3/uL (140-400) Neutrophils (%) (Auto) 72 % (31-73) Lymphocytes (%) (Auto) 13 % (24-48) Monocytes (%) (Auto) 14 % (0-9) Eosinophils (%) (Auto) 1 % (0-3) Basophils (%) (Auto) 1 % (0-3) Neutrophils # (Auto) 6.3 x10^3uL (1.8-7.7) Lymphocytes # (Auto) 1.1 x10^3/uL (1.0-4.8) Monocytes # (Auto) 1.2 x10^3/uL (0.0-1.1) Eosinophils # (Auto) 0.1 x10^3/uL (0.0-0.7) Basophils # (Auto) 0.0 x10^3/uL (0.0-0.2) Prothrombin Time 14.4 SEC (11.7-14.0) Prothromb Time International Ratio 1.2 (0.8-1.1) D-Dimer (Amanda) 3.16 ug/mlFEU (0.00-0.50) Sodium Level 140 mmol/L (136-145) Potassium Level 4.7 mmol/L (3.5-5.1) Chloride Level 100 mmol/L (98-107) Carbon Dioxide Level 28 mmol/L (21-32) Anion Gap 12 (6-14) Blood Urea Nitrogen 7 mg/dL (7-20) Creatinine 0.7 mg/dL (0.6-1.0) Estimated GFR (Cockcroft-Gault) 104.0 Glucose Level 104 mg/dL (70-99) Calcium Level 11.1 mg/dL (8.5-10.1) Magnesium Level 1.7 mg/dL (1.8-2.4) Total Bilirubin 0.8 mg/dL (0.2-1.0) Direct Bilirubin 0.2 mg/dL (0.0-0.2) Aspartate Amino Transf (AST/SGOT) 47 U/L (15-37) Alanine Aminotransferase (ALT/SGPT) 38 U/L (14-59) Alkaline Phosphatase 134 U/L (46-116) Creatine Kinase 59 U/L (26-192) Creatine Kinase MB (Mass) 0.5 ng/mL (0.0-3.6) Creatine Kinase MB Relative Index % (0-4) Troponin I Quantitative < 0.017 ng/mL (0.000-0.055) < 0.017 ng/mL (0.000-0.055) HU-Sxd-O-Type Natriuretic Peptide 155 pg/mL (0-124) Total Protein 8.7 g/dL (6.4-8.2) Albumin 3.4 g/dL (3.4-5.0) Lipase 66 U/L (73-393) Thyroid Stimulating Hormone (TSH) 3.972 uIU/mL (0.358-3.74) Urine Collection Type Unknown Urine Color Raymond Urine Clarity Turbid Urine pH 5.5 Urine Specific Norvell 1.025 Urine Protein Negative mg/dL (NEG-TRACE) Urine Glucose (UA) Negative mg/dL (NEG) Urine Ketones (Stick) 40 mg/dL (NEG) Urine Blood Negative (NEG) Urine Nitrite Negative (NEG) Urine Bilirubin Moderate (NEG) Urine Urobilinogen Dipstick 1.0 mg/dL (0.2 mg/dL) Urine Leukocyte Esterase Small (NEG) Urine RBC 0 /HPF (0-2) Urine WBC 1-4 /HPF (0-4) Urine Squamous Epithelial Cells Mod /LPF Urine Bacteria Moderate /HPF (0-FEW) Urine Mucus Mod /LPF Urine Opiates Screen Neg (NEG) Urine Methadone Screen Neg (NEG) Urine Barbiturates Neg (NEG) Urine Phencyclidine Screen Neg (NEG) Urine Amphetamine/Methamphetamine Neg (NEG) Urine Benzodiazepines Screen Neg (NEG) Urine Cocaine Screen Neg (NEG) Urine Cannabinoids Screen Neg (NEG) Urine Ethyl Alcohol Neg (NEG) Free Thyroxine 1.27 ng/dL (0.76-1.46) Test 10/08/16 05:20 White Blood Count 9.1 x10^3/uL (4.0-11.0) Red Blood Count 4.44 x10^6/uL (3.50-5.40) Hemoglobin 14.1 g/dL (12.0-15.5) Hematocrit 42.4 % (36.0-47.0) Mean Corpuscular Volume 95 fL (79-100) Mean Corpuscular Hemoglobin 32 pg (25-35) Mean Corpuscular Hemoglobin Concent 33 g/dL (31-37) Red Cell Distribution Width 13.7 % (11.5-14.5) Platelet Count 298 x10^3/uL (140-400) Neutrophils (%) (Auto) 63 % (31-73) Lymphocytes (%) (Auto) 18 % (24-48) Monocytes (%) (Auto) 17 % (0-9) Eosinophils (%) (Auto) 1 % (0-3) Basophils (%) (Auto) 1 % (0-3) Neutrophils # (Auto) 5.7 x10^3uL (1.8-7.7) Lymphocytes # (Auto) 1.6 x10^3/uL (1.0-4.8) Monocytes # (Auto) 1.5 x10^3/uL (0.0-1.1) Eosinophils # (Auto) 0.1 x10^3/uL (0.0-0.7) Basophils # (Auto) 0.1 x10^3/uL (0.0-0.2) Sodium Level 140 mmol/L (136-145) Potassium Level 4.2 mmol/L (3.5-5.1) Chloride Level 101 mmol/L (98-107) Carbon Dioxide Level 28 mmol/L (21-32) Anion Gap 11 (6-14) Blood Urea Nitrogen 10 mg/dL (7-20) Creatinine 0.6 mg/dL (0.6-1.0) Estimated GFR (Cockcroft-Gault) 124.2 Glucose Level 106 mg/dL (70-99) Calcium Level 11.2 mg/dL (8.5-10.1) Troponin I Quantitative < 0.017 ng/mL (0.000-0.055) Laboratory Tests Test 10/07/16 13:40 10/07/16 14:04 10/07/16 21:35 10/08/16 05:15 White Blood Count 8.7 x10^3/uL (4.0-11.0) Red Blood Count 4.82 x10^6/uL (3.50-5.40) Hemoglobin 15.1 g/dL (12.0-15.5) Hematocrit 46.1 % (36.0-47.0) Mean Corpuscular Volume 96 fL (79-100) Mean Corpuscular Hemoglobin 31 pg (25-35) Mean Corpuscular Hemoglobin Concent 33 g/dL (31-37) Red Cell Distribution Width 13.7 % (11.5-14.5) Platelet Count 315 x10^3/uL (140-400) Neutrophils (%) (Auto) 72 % (31-73) Lymphocytes (%) (Auto) 13 % (24-48) Monocytes (%) (Auto) 14 % (0-9) Eosinophils (%) (Auto) 1 % (0-3) Basophils (%) (Auto) 1 % (0-3) Neutrophils # (Auto) 6.3 x10^3uL (1.8-7.7) Lymphocytes # (Auto) 1.1 x10^3/uL (1.0-4.8) Monocytes # (Auto) 1.2 x10^3/uL (0.0-1.1) Eosinophils # (Auto) 0.1 x10^3/uL (0.0-0.7) Basophils # (Auto) 0.0 x10^3/uL (0.0-0.2) Prothrombin Time 14.4 SEC (11.7-14.0) Prothromb Time International Ratio 1.2 (0.8-1.1) D-Dimer (Amanda) 3.16 ug/mlFEU (0.00-0.50) Sodium Level 140 mmol/L (136-145) Potassium Level 4.7 mmol/L (3.5-5.1) Chloride Level 100 mmol/L (98-107) Carbon Dioxide Level 28 mmol/L (21-32) Anion Gap 12 (6-14) Blood Urea Nitrogen 7 mg/dL (7-20) Creatinine 0.7 mg/dL (0.6-1.0) Estimated GFR (Cockcroft-Gault) 104.0 Glucose Level 104 mg/dL (70-99) Calcium Level 11.1 mg/dL (8.5-10.1) Magnesium Level 1.7 mg/dL (1.8-2.4) Total Bilirubin 0.8 mg/dL (0.2-1.0) Direct Bilirubin 0.2 mg/dL (0.0-0.2) Aspartate Amino Transf (AST/SGOT) 47 U/L (15-37) Alanine Aminotransferase (ALT/SGPT) 38 U/L (14-59) Alkaline Phosphatase 134 U/L (46-116) Creatine Kinase 59 U/L (26-192) Creatine Kinase MB (Mass) 0.5 ng/mL (0.0-3.6) Creatine Kinase MB Relative Index % (0-4) Troponin I Quantitative < 0.017 ng/mL (0.000-0.055) < 0.017 ng/mL (0.000-0.055) OX-Cbw-V-Type Natriuretic Peptide 155 pg/mL (0-124) Total Protein 8.7 g/dL (6.4-8.2) Albumin 3.4 g/dL (3.4-5.0) Lipase 66 U/L (73-393) Thyroid Stimulating Hormone (TSH) 3.972 uIU/mL (0.358-3.74) Urine Collection Type Unknown Urine Color Raymond Urine Clarity Turbid Urine pH 5.5 Urine Specific Norvell 1.025 Urine Protein Negative mg/dL (NEG-TRACE) Urine Glucose (UA) Negative mg/dL (NEG) Urine Ketones (Stick) 40 mg/dL (NEG) Urine Blood Negative (NEG) Urine Nitrite Negative (NEG) Urine Bilirubin Moderate (NEG) Urine Urobilinogen Dipstick 1.0 mg/dL (0.2 mg/dL) Urine Leukocyte Esterase Small (NEG) Urine RBC 0 /HPF (0-2) Urine WBC 1-4 /HPF (0-4) Urine Squamous Epithelial Cells Mod /LPF Urine Bacteria Moderate /HPF (0-FEW) Urine Mucus Mod /LPF Urine Opiates Screen Neg (NEG) Urine Methadone Screen Neg (NEG) Urine Barbiturates Neg (NEG) Urine Phencyclidine Screen Neg (NEG) Urine Amphetamine/Methamphetamine Neg (NEG) Urine Benzodiazepines Screen Neg (NEG) Urine Cocaine Screen Neg (NEG) Urine Cannabinoids Screen Neg (NEG) Urine Ethyl Alcohol Neg (NEG) Free Thyroxine 1.27 ng/dL (0.76-1.46) Test 10/08/16 05:20 White Blood Count 9.1 x10^3/uL (4.0-11.0) Red Blood Count 4.44 x10^6/uL (3.50-5.40) Hemoglobin 14.1 g/dL (12.0-15.5) Hematocrit 42.4 % (36.0-47.0) Mean Corpuscular Volume 95 fL (79-100) Mean Corpuscular Hemoglobin 32 pg (25-35) Mean Corpuscular Hemoglobin Concent 33 g/dL (31-37) Red Cell Distribution Width 13.7 % (11.5-14.5) Platelet Count 298 x10^3/uL (140-400) Neutrophils (%) (Auto) 63 % (31-73) Lymphocytes (%) (Auto) 18 % (24-48) Monocytes (%) (Auto) 17 % (0-9) Eosinophils (%) (Auto) 1 % (0-3) Basophils (%) (Auto) 1 % (0-3) Neutrophils # (Auto) 5.7 x10^3uL (1.8-7.7) Lymphocytes # (Auto) 1.6 x10^3/uL (1.0-4.8) Monocytes # (Auto) 1.5 x10^3/uL (0.0-1.1) Eosinophils # (Auto) 0.1 x10^3/uL (0.0-0.7) Basophils # (Auto) 0.1 x10^3/uL (0.0-0.2) Sodium Level 140 mmol/L (136-145) Potassium Level 4.2 mmol/L (3.5-5.1) Chloride Level 101 mmol/L (98-107) Carbon Dioxide Level 28 mmol/L (21-32) Anion Gap 11 (6-14) Blood Urea Nitrogen 10 mg/dL (7-20) Creatinine 0.6 mg/dL (0.6-1.0) Estimated GFR (Cockcroft-Gault) 124.2 Glucose Level 106 mg/dL (70-99) Calcium Level 11.2 mg/dL (8.5-10.1) Troponin I Quantitative < 0.017 ng/mL (0.000-0.055) Medications Current Medications Albuterol/ Ipratropium (Duoneb) 3 ml 1X ONCE NEB Last administered on t 14:01; Start 10/07/16 at 13:30; Stop 10/07/16 at 13:31; Status DC Acetaminophen (Tylenol) 650 mg PRN Q6HRS PRN PO FEVER; Start 10/07/16 at 15:45 Ondansetron HCl (Zofran) 4 mg PRN Q6HRS PRN IV NAUSEA/VOMITING; Start 10/07/16 at 15:45 Morphine Sulfate 2 mg PRN Q2HR PRN IV PAIN; Start 10/07/16 at 15:45 Tramadol HCl (Ultram) 50 mg PRN Q6HRS PRN PO PAIN Last administered on 08:07; Start 10/07/16 at 15:45 Hydralazine HCl (Apresoline) 10 mg PRN Q4HRS PRN IVP ELEVATED BP, SEE COMMENTS ; Start 10/07/16 at 15:45 Docusate Sodium (Colace) 100 mg PRN DAILY PRN PO CONSTIPATION; Start 10/07/16 at 15:45 Albuterol/ Ipratropium (Duoneb) 3 ml RTQID NEB Last administered on 10/08/16 10:46; Start 10/07/16 at 16:00 Albuterol Sulfate (Ventolin Neb Soln) 2.5 mg PRN Q2HR PRN NEB SHORTNESS OF BREATH; Start 10/07/16 at 15:45 Guaifenesin (Mucinex) 600 mg BID PO Last administered on 10/07/16 21:09; Start 10/07/16 at 21:00 Nicotine (Nicoderm Cq 7mg) 1 patch PRN DAILY PRN TD SMOKING CESSATION; Start at 15:45 Heparin Sodium (Porcine) (Heparin Sq) 5,000 unit Q8HRS SQ Last administered on 10/07/16 21:17; Start 10/07/16 at 22:00; Stop 10/07/16 at 23:07; Status DC Throat Lozenges (Cepacol Sore Throat Lozenge) 1 moises PRN Q2HRS PRN PO SORE THROAT Last administered on 10/07/16 21:09; Start 10/07/16 at 15:45 Magnesium Sulfate/ Dextrose 50 ml @ 25 mls/hr 1X ONCE IV Last administered on 10/07/16 16:03; Start 10/07/16 at 15:45; Stop 10/07/16 at 17:44; Status DC Lidocaine/Sodium Bicarbonate (Buffered Lidocaine 1%) 20 ml STK-MED ONCE IJ ; Start 10/08/16 at 12:39; Stop 10/08/16 at 12:40; Status DC Midazolam HCl (Versed) 5 mg STK-MED ONCE .ROUTE ; Start 10/08/16 at 13:05; Stop 10/08/16 at 13:06; Status DC Fentanyl Citrate (Fentanyl 5ml Vial) 250 mcg STK-MED ONCE .ROUTE ; Start at 13:05; Stop 10/08/16 at 13:06; Status DC Active Scripts Active No Active Prescriptions or Reported Medications Vitals/I & O Vital Sign - Last 24 Hours 10/07/16 10/07/16 10/07/16 10/07/16 13:11 14:03 14:11 15:23 Temp 97.8 97.8 Pulse 102 102 102 Resp 20 18 18 B/P (MAP) 171/104 (126) 153/96 (115) 141/98 (112) Pulse Ox 96 96 95 96 O2 Delivery Room Air Room Air Room Air Room Air 10/07/16 10/07/16 10/07/16 10/07/16 16:18 16:30 17:07 17:15 Temp 98.2 98.2 Pulse 104 106 99 Resp 18 18 18 B/P (MAP) 128/96 (107) 125/93 (104) 149/92 (111) Pulse Ox 96 94 94 100 O2 Delivery Room Air Room Air Room Air Room Air 10/07/16 10/07/16 10/07/16 10/07/16 17:15 17:42 19:25 20:00 Temp 98.2 98.1 98.2 98.1 Pulse 99 98 Resp 18 18 B/P (MAP) 149/92 (111) 120/84 (96) Pulse Ox 100 93 O2 Delivery Room Air Room Air Room Air Room Air 10/07/16 10/07/16 10/07/16 10/08/16 20:32 21:09 23:30 03:30 Temp 98.8 98.1 98.8 98.1 Pulse 100 109 Resp 18 18 B/P (MAP) 133/90 (104) 157/97 (117) Pulse Ox 92 92 92 90 O2 Delivery Room Air Room Air Room Air Room Air 10/08/16 10/08/16 10/08/16 10/08/16 06:54 07:04 07:54 08:00 Temp 98.1 97.6 98.1 97.6 Pulse 109 97 Resp 18 18 B/P (MAP) 157/97 (117) 116/88 (97) Pulse Ox 93 90 99 O2 Delivery Room Air Room Air Room Air Room Air 10/08/16 10/08/16 10/08/16 10/08/16 08:07 10:47 10:54 12:52 Temp 98.0 98.0 Pulse 89 Resp 19 B/P (MAP) 117/91 (100) Pulse Ox 99 90 90 O2 Delivery Room Air Room Air Room Air Room Air Intake and Output 10/07/16 10/07/16 10/08/16 15:00 23:00 07:00 Intake Total 35 ml 0 ml Output Total 200 ml Balance 35 ml -200 ml MANUEL GENAO MD Oct 08, 2016 13:10
[2016-10-08] MEDS ORDERED: MIDAZOLAM HCL/PF 5 MG/5 ML VIAL. IV ONE (13:30)
[2016-10-08] MEDS ORDERED: fentaNYL PF VIAL 250 MCG/5 ML VIAL IV ONE (13:30)
--- NOTE | 2016-10-08 14:35 | PDOC ---
MODERATE SEDATION ASSESSMENT RISKS/ALTERNATIVES Risks/Alternatives Risks and alternatives of this type of sedation and procedure discussed with: RISK/ALTERNATIVES: Patient H & P ON CHART H & P H & P on chart and reviewed for co-morbid conditions and appropriate labs. H&P ON CHART: Yes STATUS PREG STATUS ASSESSED: N/A MEDS/ALLERGIES REVIEWED Meds/Allergies Reviewed Medications and Allergies including time and route of recently administered narcotics and sedatives. MEDS/ALLERGIES REVIEWED: Yes ASA RATING ASA RATING: II AIRWAY ASSESSMENT Airway Assessment Airway patency, oral function limitations, presence of caps, crowns, dentures, partials, and ability to extend neck assessed. AIRWAY ASSESSMENT: Yes MALLAMPATI SCORE MALLAMPATI SCORE: II PRE-SEDATION ASSESSMENT PRE-SEDATION ASSESSMENT: Yes DEEPAK VARGAS MD Oct 08, 2016 14:35
--- NOTE | 2016-10-08 14:36 | PDOC ---
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 etiology. Image guided Dx/Tx thoracentesis has been requested by Pulmonary. Post-Procedure Diagnosis Post-Procedure Diagnosis Same Procedure Performed Procedure Performed CT guided Dx/Tx left thoracentesis Type of Anesthesia Type of Anesthesia Local + Mod sedation. Estimated Blood Loss EBL: Trace Specimens Specimans 1600 cc yellow-hazy left pleural fluid removed---samples to lab per protocol Condition of Patient Condition of Patient Stable. No apparent complication. No immediate post-thora Ptx. Disposition Disposition From IR/CT return to 670. 2 hr post thoracentesis Insp/exp CXR requested. F/u with HIMS and Pulmonary. Full report to follow. DEEPAK VARGAS MD Oct 08, 2016 14:36
--- NOTE | 2016-10-08 14:58 | RAD ---
CT-guided diagnostic and therapeutic left thoracentesis Indication: 48-year-old female with chest pain, shortness of air, and very large left pleural effusion, of uncertain underlying etiology. Image guided diagnostic/therapeutic thoracentesis has been requested by pulmonary. Anesthesia: 22 minutes moderate sedation was provided utilizing a total of 1 mg Versed and 50 mcg fentanyl, IV. The patient was appropriately monitored by a qualified independent observer throughout the time of moderate sedation. Procedure: Informed consent was obtained from the patient. She was placed supine on the CT scanner. Preliminary noncontrast CT images confirmed the presence of a large left pleural effusion, with atypical loculation, and with associated left lung compression atelectasis. A skin site suitable for CT-guided thoracentesis was selected and marked along the lateral aspect of lower left hemithorax. That area was prepped and draped in the usual sterile fashion. Using aseptic technique, local anesthesia, and CT guidance, a micropuncture sheath was successfully introduced into the low left lateral pleural space. This sheath was then exchanged over a guidewire for an 8 German drainage catheter. Approximately 1600 cc of yellow-hazy pleural fluid was then easily removed, samples which were submitted to the clinical laboratory per referring professor of art history request. Completion CT images documented marked reduction in volume of the left pleural effusion, without pneumothorax. The drainage catheter was removed and a sterile dressing was applied. Patient tolerated the procedure well without apparent complication. Impression: Successful, uneventful CT-guided diagnostic and therapeutic left thoracentesis, as described. PQRS compliance statement: One or more of the following individualized dose reduction techniques was utilized for this CT procedure: 1. Automated exposure control. 2. Adjustment of MA and/or KV according to patient size. 3. Iterative reconstruction technique.
--- NOTE | 2016-10-08 15:49 | RAD ---
Indication: Status post thoracentesis. Time of exam 1537 hours. Correlation is made with prior chest from one day earlier. There has been significant reduction in left pleural effusion, status post thoracentesis. A small amount of pleural fluid and atelectasis remains in the left base. No pneumothorax is identified. The right lung is clear. Impression: Significant reduction in pleural effusion on the left status post thoracentesis. No pneumothorax is identified.
[2016-10-08 16:47] LABS: BF CLARITY TURBID; BF COLOR YELLOW
[2016-10-08] MEDS: BENZOCAINE/MENTHOL LOZENGE. PO PRN (20:40)
--- NOTE | 2016-10-08 21:59 | CARD ---
APPROVED REPORT EXAM: Two-dimensional and M-mode echocardiogram with Doppler and color Doppler. Other Information Quality : Fair Rhythm : NSR INDICATION Pleural Effusion 2D DIMENSIONS RVDd2.5 (2.9-3.5cm)Left Atrium(2D)2.7 (1.6-4.0cm) IVSd1.5 (0.7-1.1cm)Aortic Root(2D)2.8 (2.0-3.7cm) LVDd3.6 (3.9-5.9cm)LVOT Diameter2.4 (1.8-2.4cm) PWd1.5 (0.7-1.1cm)LVDs2.2 (2.5-4.0cm) FS (%) 29.8 %SV39.0 ml LVEF(%)61.3 (>50%) Aortic Valve AoV Peak Compa.122.2cm/sAoV VTI21.3cm AO Peak GR.6.0mmHgLVOT Peak Compa.96.6cm/s LVOT VTI 17.87cmAO Mean GR.3mmHg TOSHIA (VMAX)3.80rw7DUI (VTI)3.74cm2 Mitral Valve MV E Bmexzpui26.1cm/sMV DECEL [id number] MV A Ebhthnvq55.5cm/sMV VUR66so E/A Ratio0.8MV A Kxlsyaiq454zn MVA (PHT)3.74cm2 TDI E/Lateral E'9.3E/Medial E'10.5 Pulmonary Valve RVOT VTI6.2cm Tricuspid Valve TR P. Lbrzpxid589ip/sRAP [id number] TR Peak Gr.42trTyEHBK32rlCe Pulmonary Vein S1 Dqryynks43.2cm/sD2 Gzymribh71.0cm/s LEFT VENTRICLE The left ventricle is normal size. There is normal left ventricular wall thickness. Left ventricle sy stolic function is normal. The Ejection Fraction is 60-65%. There is normal LV segmental wall motion. Tissue Doppler imaging reveals mild left ventricular diastolic dysfunction. Transmitral Doppler flow pattern is Grade I-abnormal relaxation pattern. There is no ventricular septal defect visualized. RIGHT VENTRICLE The right ventricle is normal size. The right ventricular systolic function is normal. ATRIA The left atrium size is normal. The right atrium size is normal. The interatrial septum is intact wit h no evidence for an atrial septal defect or patent foramen ovale as noted on 2-D or Doppler imaging. AORTIC VALVE The aortic valve is not well visualized. Doppler and Color Flow revealed no significant aortic regurg itation. There is no significant aortic valvular stenosis. MITRAL VALVE The mitral valve is normal in structure and function. There is no mitral valve stenosis. Doppler and Color Flow revealed no mitral valve regurgitation noted. TRICUSPID VALVE The tricuspid valve is normal in structure and function. Doppler and Color Flow revealed mild to mode rate tricuspid regurgitation. The PA pressure was estimated at 41 mmHg. There is no tricuspid valve s tenosis. PULMONIC VALVE The pulmonic valve is not well visualized. Doppler and Color Flow revealed no pulmonic valvular regur gitation. There is no pulmonic valvular stenosis. GREAT VESSELS The aortic root is normal in size. Pulmonary venous flow (Doppler) suggestive of diastolic dysfunctio n. The IVC is normal in size and collapses >50% with inspiration. PERICARDIAL EFFUSION There is large pleural effusion with fibronous strands seen. There is no evidence of significant pilar cardial effusion. Critical Notification Critical Value: No <Conclusion> The left ventricle is normal size. There is normal left ventricular wall thickness. Left ventricle systolic function is normal. The Ejection Fraction is 60-65%. There is a Grade I diastolic dysfunction There is no evidence of significant pericardial effusion. There is no mitral stenosis or regurgitation The left atrium is of a normal size there is no aortic stenosis or regurgitation Doppler and Color Flow revealed mild to moderate tricuspid regurgitation. The PA pressure was estimated at 41 mmHg. The pulmonic valve is normal.
[2016-10-09 03:27] VITALS: BP 127/85
[2016-10-09 06:42] LABS: BASO % 1 % (0-3); EOS % 3 % (0-3); HEMATOCRIT 42.3 % (36.0-47.0); HEMOGLOBIN 14.1 g/dL (12.0-15.5); LYMPH # 1.7 x10^3/uL (1.0-4.8); LYMPH % 16 % (24-48); MEAN CORPUSCULAR HEMOGLOBIN 32 pg (25-35); MEAN CORPUSCULAR HGB CONC 33 g/dL (31-37); MEAN CORPUSCULAR VOLUME 95 fL (79-100); MONO % 17 % (0-9); NEUT % 63 % (31-73); PLATELET COUNT 285 x10^3/uL (140-400); RED BLOOD COUNT 4.46 x10^6/uL (3.50-5.40); RED CELL DISTRIBUTION WIDTH 13.2 % (11.5-14.5); WHITE BLOOD COUNT 10.3 x10^3/uL (4.0-11.0)
[2016-10-09 07:04] LABS: CALCIUM 10.9 mg/dL (8.5-10.1); CREATININE 0.7 mg/dL (0.6-1.0); MAGNESIUM 1.8 mg/dL (1.8-2.4); POTASSIUM 4.1 mmol/L (3.5-5.1)
[2016-10-09 07:06] VITALS: BP 113/76
[2016-10-09] MEDS: IPRATRPIUM/ALBUTEROL 0.5/2.5MG 3 ML NEBU. NEB SCH ×4 (07:46→19:07)
[2016-10-09] MEDS: traMADol 50 MG TABLET PO PRN ×2 (10:00→20:58)
[2016-10-09 11:15] VITALS: BP 114/79
--- NOTE | 2016-10-09 11:33 | PDOC ---
PULMONARY PROGRESS NOTES Subjective s/p left thoracentesis 1600 cc removed Vitals Vital Signs Date Time Temp Pulse Resp B/P (MAP) Pulse Ox O2 Delivery O2 Flow Rate FiO2 10/09/16 11:15 99.2 91 20 114/79 (91) 97 Nasal Cannula 2.0 99.2 General: Alert, No acute distress Lungs: Other (left side decreased bs) Cardiovascular: S1 Abdomen: Soft Neuro Exam: Alert Extremities: No Edema Skin: Warm Labs Laboratory Tests Test 10/07/16 13:40 10/07/16 14:04 10/07/16 21:35 10/08/16 05:15 White Blood Count 8.7 x10^3/uL (4.0-11.0) Red Blood Count 4.82 x10^6/uL (3.50-5.40) Hemoglobin 15.1 g/dL (12.0-15.5) Hematocrit 46.1 % (36.0-47.0) Mean Corpuscular Volume 96 fL (79-100) Mean Corpuscular Hemoglobin 31 pg (25-35) Mean Corpuscular Hemoglobin Concent 33 g/dL (31-37) Red Cell Distribution Width 13.7 % (11.5-14.5) Platelet Count 315 x10^3/uL (140-400) Neutrophils (%) (Auto) 72 % (31-73) Lymphocytes (%) (Auto) 13 % (24-48) Monocytes (%) (Auto) 14 % (0-9) Eosinophils (%) (Auto) 1 % (0-3) Basophils (%) (Auto) 1 % (0-3) Neutrophils # (Auto) 6.3 x10^3uL (1.8-7.7) Lymphocytes # (Auto) 1.1 x10^3/uL (1.0-4.8) Monocytes # (Auto) 1.2 x10^3/uL (0.0-1.1) Eosinophils # (Auto) 0.1 x10^3/uL (0.0-0.7) Basophils # (Auto) 0.0 x10^3/uL (0.0-0.2) Prothrombin Time 14.4 SEC (11.7-14.0) Prothromb Time International Ratio 1.2 (0.8-1.1) D-Dimer (Amanda) 3.16 ug/mlFEU (0.00-0.50) Sodium Level 140 mmol/L (136-145) Potassium Level 4.7 mmol/L (3.5-5.1) Chloride Level 100 mmol/L (98-107) Carbon Dioxide Level 28 mmol/L (21-32) Anion Gap 12 (6-14) Blood Urea Nitrogen 7 mg/dL (7-20) Creatinine 0.7 mg/dL (0.6-1.0) Estimated GFR (Cockcroft-Gault) 104.0 Glucose Level 104 mg/dL (70-99) Calcium Level 11.1 mg/dL (8.5-10.1) Magnesium Level 1.7 mg/dL (1.8-2.4) Total Bilirubin 0.8 mg/dL (0.2-1.0) Direct Bilirubin 0.2 mg/dL (0.0-0.2) Aspartate Amino Transf (AST/SGOT) 47 U/L (15-37) Alanine Aminotransferase (ALT/SGPT) 38 U/L (14-59) Alkaline Phosphatase 134 U/L (46-116) Creatine Kinase 59 U/L (26-192) Creatine Kinase MB (Mass) 0.5 ng/mL (0.0-3.6) Creatine Kinase MB Relative Index % (0-4) Troponin I Quantitative < 0.017 ng/mL (0.000-0.055) < 0.017 ng/mL (0.000-0.055) JF-Oxe-Q-Type Natriuretic Peptide 155 pg/mL (0-124) Total Protein 8.7 g/dL (6.4-8.2) Albumin 3.4 g/dL (3.4-5.0) Lipase 66 U/L (73-393) Thyroid Stimulating Hormone (TSH) 3.972 uIU/mL (0.358-3.74) Urine Collection Type Unknown Urine Color [place] Urine Clarity Turbid Urine pH 5.5 Urine Specific [place] 1.025 Urine Protein Negative mg/dL (NEG-TRACE) Urine Glucose (UA) Negative mg/dL (NEG) Urine Ketones (Stick) 40 mg/dL (NEG) Urine Blood Negative (NEG) Urine Nitrite Negative (NEG) Urine Bilirubin Moderate (NEG) Urine Urobilinogen Dipstick 1.0 mg/dL (0.2 mg/dL) Urine Leukocyte Esterase Small (NEG) Urine RBC 0 /HPF (0-2) Urine WBC 1-4 /HPF (0-4) Urine Squamous Epithelial Cells Mod /LPF Urine Bacteria Moderate /HPF (0-FEW) Urine Mucus Mod /LPF Urine Opiates Screen Neg (NEG) Urine Methadone Screen Neg (NEG) Urine Barbiturates Neg (NEG) Urine Phencyclidine Screen Neg (NEG) Urine Amphetamine/Methamphetamine Neg (NEG) Urine Benzodiazepines Screen Neg (NEG) Urine Cocaine Screen Neg (NEG) Urine Cannabinoids Screen Neg (NEG) Urine Ethyl Alcohol Neg (NEG) Free Thyroxine 1.27 ng/dL (0.76-1.46) Test 10/08/16 05:20 10/08/16 13:25 10/09/16 06:00 White Blood Count 9.1 x10^3/uL (4.0-11.0) 10.3 x10^3/uL (4.0-11.0) Red Blood Count 4.44 x10^6/uL (3.50-5.40) 4.46 x10^6/uL (3.50-5.40) Hemoglobin 14.1 g/dL (12.0-15.5) 14.1 g/dL (12.0-15.5) Hematocrit 42.4 % (36.0-47.0) 42.3 % (36.0-47.0) Mean Corpuscular Volume 95 fL (79-100) 95 fL (79-100) Mean Corpuscular Hemoglobin 32 pg (25-35) 32 pg (25-35) Mean Corpuscular Hemoglobin Concent 33 g/dL (31-37) 33 g/dL (31-37) Red Cell Distribution Width 13.7 % (11.5-14.5) 13.2 % (11.5-14.5) Platelet Count 298 x10^3/uL (140-400) 285 x10^3/uL (140-400) Neutrophils (%) (Auto) 63 % (31-73) 63 % (31-73) Lymphocytes (%) (Auto) 18 % (24-48) 16 % (24-48) Monocytes (%) (Auto) 17 % (0-9) 17 % (0-9) Eosinophils (%) (Auto) 1 % (0-3) 3 % (0-3) Basophils (%) (Auto) 1 % (0-3) 1 % (0-3) Neutrophils # (Auto) 5.7 x10^3uL (1.8-7.7) 6.5 x10^3uL (1.8-7.7) Lymphocytes # (Auto) 1.6 x10^3/uL (1.0-4.8) 1.7 x10^3/uL (1.0-4.8) Monocytes # (Auto) 1.5 x10^3/uL (0.0-1.1) 1.8 x10^3/uL (0.0-1.1) Eosinophils # (Auto) 0.1 x10^3/uL (0.0-0.7) 0.3 x10^3/uL (0.0-0.7) Basophils # (Auto) 0.1 x10^3/uL (0.0-0.2) 0.0 x10^3/uL (0.0-0.2) Sodium Level 140 mmol/L (136-145) 136 mmol/L (136-145) Potassium Level 4.2 mmol/L (3.5-5.1) 4.1 mmol/L (3.5-5.1) Chloride Level 101 mmol/L (98-107) 99 mmol/L (98-107) Carbon Dioxide Level 28 mmol/L (21-32) 29 mmol/L (21-32) Anion Gap 11 (6-14) 8 (6-14) Blood Urea Nitrogen 10 mg/dL (7-20) 12 mg/dL (7-20) Creatinine 0.6 mg/dL (0.6-1.0) 0.7 mg/dL (0.6-1.0) Estimated GFR (Cockcroft-Gault) 124.2 104.0 Glucose Level 106 mg/dL (70-99) 122 mg/dL (70-99) Calcium Level 11.2 mg/dL (8.5-10.1) 10.9 mg/dL (8.5-10.1) Troponin I Quantitative < 0.017 ng/mL (0.000-0.055) Body Fluid Source Pleural Body Fluid Color Yellow Body Fluid Clarity Turbid Body Fluid pH 7.4 Body Fluid Nucleated Cells 2125 /cmm Body Fluid Mononuclear WBCs (%) 23 % Body Fluid Polymorphonuclear Cells 77 % Body Fluid Total RBCs Counted 2175 /cmm Magnesium Level 1.8 mg/dL (1.8-2.4) Laboratory Tests Test 10/08/16 13:25 10/09/16 06:00 Body Fluid Source Pleural Body Fluid Color Yellow Body Fluid Clarity Turbid Body Fluid pH 7.4 Body Fluid Nucleated Cells 2125 /cmm Body Fluid Mononuclear WBCs (%) 23 % Body Fluid Polymorphonuclear Cells 77 % Body Fluid Total RBCs Counted 2175 /cmm White Blood Count 10.3 x10^3/uL (4.0-11.0) Red Blood Count 4.46 x10^6/uL (3.50-5.40) Hemoglobin 14.1 g/dL (12.0-15.5) Hematocrit 42.3 % (36.0-47.0) Mean Corpuscular Volume 95 fL (79-100) Mean Corpuscular Hemoglobin 32 pg (25-35) Mean Corpuscular Hemoglobin Concent 33 g/dL (31-37) Red Cell Distribution Width 13.2 % (11.5-14.5) Platelet Count 285 x10^3/uL (140-400) Neutrophils (%) (Auto) 63 % (31-73) Lymphocytes (%) (Auto) 16 % (24-48) Monocytes (%) (Auto) 17 % (0-9) Eosinophils (%) (Auto) 3 % (0-3) Basophils (%) (Auto) 1 % (0-3) Neutrophils # (Auto) 6.5 x10^3uL (1.8-7.7) Lymphocytes # (Auto) 1.7 x10^3/uL (1.0-4.8) Monocytes # (Auto) 1.8 x10^3/uL (0.0-1.1) Eosinophils # (Auto) 0.3 x10^3/uL (0.0-0.7) Basophils # (Auto) 0.0 x10^3/uL (0.0-0.2) Sodium Level 136 mmol/L (136-145) Potassium Level 4.1 mmol/L (3.5-5.1) Chloride Level 99 mmol/L (98-107) Carbon Dioxide Level 29 mmol/L (21-32) Anion Gap 8 (6-14) Blood Urea Nitrogen 12 mg/dL (7-20) Creatinine 0.7 mg/dL (0.6-1.0) Estimated GFR (Cockcroft-Gault) 104.0 Glucose Level 122 mg/dL (70-99) Calcium Level 10.9 mg/dL (8.5-10.1) Magnesium Level 1.8 mg/dL (1.8-2.4) Medications Active Scripts Medications Dose Route/Sig Max Daily Dose Days Date Category No Active Prescriptions or Reported Medications Rx Impression . 1.Large left sided effusion in a smoker with weight loss, suspect malignancy ? infectious etiology of left effusion 2.Suspect hypercalcemia of malignancy Plan . s/p ct guided left thoracentesis 10/08. 1600 cc removed await cytology ct chest ,abd/pelvis to r/o malignancy review analysis of effusion further recommendations to follow DARIELA العلي MD Oct 09, 2016 11:33
[2016-10-09] MEDS ORDERED: IOHEXOL 300 MG/ML 75 ML VIAL IV ONE (11:45)
[2016-10-09] MEDS ORDERED: CONTRAST GIVEN MC PRN (11:45)
[2016-10-09 12:16] LABS: BF TRIGLYCERIDES 44 mg/dL (.)
--- NOTE | 2016-10-09 13:10 | RAD ---
Indication: Shortness of air for 6 days and tobaccoism. The study is performed to evaluate for malignancy. Axial imaging through the chest, abdomen and pelvis was performed after the administration of intravenous contrast. No prior studies are available for comparison apart from the procedure CT from recent left chest drain placement one day earlier. CT chest: No axillary lymphadenopathy is identified. There is significant soft tissue fullness identified in the middle mediastinum in the region of the mid esophagus. Soft tissue at this location in the subcarinal region measures approximately 4.2 cm transverse x 3.5 cm AP. There appears to be circumferential wall thickening of the esophagus and findings are concerning for esophageal neoplasm. There is a calcified lymph node noted in the subcarinal and right hilar region as well consistent with prior granulomatous exposure. The left hilum is obscured by a large amount of consolidation and atelectasis in the left lower lobe. There are multiloculated pleural fluid collections in the left chest. No right-sided pleural effusion is seen. No pericardial effusion is identified. There is abnormal nodular thickening involving the medial pleura of the left upper chest along the upper mediastinum. There is also some nodular pleural soft tissue thickening anteriorly within the mid to lower chest. The abnormal soft tissue measures 5.9 x 2.5 cm. The right lung appears be fairly clear apart from a tiny nodule in the right upper lobe measuring 4 mm, indeterminate. There is some subsegmental atelectasis in the right lower lobe. There is a calcified granuloma in the right middle lobe. Areas of consolidation in the left lower lobe are noted, likely atelectasis. CT abdomen and pelvis: No discrete liver mass is identified. The gallbladder appears contracted. The pancreas and spleen are unremarkable. No adrenal mass is identified. The kidneys are unremarkable. Aorta is nonaneurysmal. No central retroperitoneal or mesenteric lymphadenopathy is seen. The small and large bowel loops are normal caliber. There is no ascites. The uterus and bladder are unremarkable. The right ovary is prominent and contains a central calcification. The ovary measures approximately 4 cm. Left ovary is not visualized. Impression: 1. Middle mediastinal abnormal soft tissue, suspicious for esophageal neoplasm. Endoscopy is recommended for further evaluation. There is also significant abnormal pleural nodularity on the left, as described with mild multiloculated pleural effusions and consolidation on the left. Findings are worrisome for pleural metastatic disease.. 2. No evidence of abdominal or pelvic lymphadenopathy or metastatic disease. 3. Enlarged right ovary. Correlation with pelvic sonography could be performed for better characterization. PQRS Compliance Statement: One or more of the following individualized dose reduction techniques were utilized for this examination: 1. Automated exposure control 2. Adjustment of the mA and/or kV according to patient size 3. Use of iterative reconstruction technique
[2016-10-09 14:27] VITALS: BP 115/75
--- NOTE | 2016-10-09 14:59 | PDOC ---
PROGRESS NOTES Chief Complaint Chief Complaint sob with left side pleural effusion, need to rule out malignancy given smoking hypercalcemia 2/2 malignancy? hypomagnesemia URI likely 2/2 viral infection tobaccoism SIRS with viral bronchitis likely plan: pulm, IR consult for thoracentesis 10/07 replete MAG labs tmr duoneb, cough meds, albuterol prn echo high tsh, t4 normal dvt ppx lee CT done, showed possible esophageal Ca and pleural mets. gi consult. check mag, vitd, Ca. History of Present Illness History of Present Illness feels neck pain slighlty better, thoracentesis done 10/08, 1.6L removed, looks like transudate, waiting for cytology lee CT done Vitals Vitals Vital Signs Date Time Temp Pulse Resp B/P (MAP) Pulse Ox O2 Delivery O2 Flow Rate FiO2 10/09/16 14:27 98.1 92 20 115/75 (88) 95 Nasal Cannula 2.0 98.1 Physical Exam General: Alert, Oriented X3, Cooperative Heart: Regular rate, Normal S1, Normal S2 Lungs: Other (left side decreased bs) Abdomen: Normal bowel sounds, Soft, No tenderness Extremities: No clubbing, No cyanosis Skin: No rashes Labs LABS Laboratory Tests Test 10/09/16 06:00 White Blood Count 10.3 x10^3/uL (4.0-11.0) Red Blood Count 4.46 x10^6/uL (3.50-5.40) Hemoglobin 14.1 g/dL (12.0-15.5) Hematocrit 42.3 % (36.0-47.0) Mean Corpuscular Volume 95 fL (79-100) Mean Corpuscular Hemoglobin 32 pg (25-35) Mean Corpuscular Hemoglobin Concent 33 g/dL (31-37) Red Cell Distribution Width 13.2 % (11.5-14.5) Platelet Count 285 x10^3/uL (140-400) Neutrophils (%) (Auto) 63 % (31-73) Lymphocytes (%) (Auto) 16 % (24-48) Monocytes (%) (Auto) 17 % (0-9) Eosinophils (%) (Auto) 3 % (0-3) Basophils (%) (Auto) 1 % (0-3) Neutrophils # (Auto) 6.5 x10^3uL (1.8-7.7) Lymphocytes # (Auto) 1.7 x10^3/uL (1.0-4.8) Monocytes # (Auto) 1.8 x10^3/uL (0.0-1.1) Eosinophils # (Auto) 0.3 x10^3/uL (0.0-0.7) Basophils # (Auto) 0.0 x10^3/uL (0.0-0.2) Sodium Level 136 mmol/L (136-145) Potassium Level 4.1 mmol/L (3.5-5.1) Chloride Level 99 mmol/L (98-107) Carbon Dioxide Level 29 mmol/L (21-32) Anion Gap 8 (6-14) Blood Urea Nitrogen 12 mg/dL (7-20) Creatinine 0.7 mg/dL (0.6-1.0) Estimated GFR (Cockcroft-Gault) 104.0 Glucose Level 122 mg/dL (70-99) Calcium Level 10.9 mg/dL (8.5-10.1) Magnesium Level 1.8 mg/dL (1.8-2.4) Review of Systems Review of Systems no fever, chills, sob or chest pain Comment Review of Relevant I have reviewed the following items fausto (where applicable) has been applied. Labs Laboratory Tests Test 10/07/16 21:35 10/08/16 05:15 10/08/16 05:20 10/08/16 13:25 Troponin I Quantitative < 0.017 ng/mL (0.000-0.055) < 0.017 ng/mL (0.000-0.055) Free Thyroxine 1.27 ng/dL (0.76-1.46) White Blood Count 9.1 x10^3/uL (4.0-11.0) Red Blood Count 4.44 x10^6/uL (3.50-5.40) Hemoglobin 14.1 g/dL (12.0-15.5) Hematocrit 42.4 % (36.0-47.0) Mean Corpuscular Volume 95 fL (79-100) Mean Corpuscular Hemoglobin 32 pg (25-35) Mean Corpuscular Hemoglobin Concent 33 g/dL (31-37) Red Cell Distribution Width 13.7 % (11.5-14.5) Platelet Count 298 x10^3/uL (140-400) Neutrophils (%) (Auto) 63 % (31-73) Lymphocytes (%) (Auto) 18 % (24-48) Monocytes (%) (Auto) 17 % (0-9) Eosinophils (%) (Auto) 1 % (0-3) Basophils (%) (Auto) 1 % (0-3) Neutrophils # (Auto) 5.7 x10^3uL (1.8-7.7) Lymphocytes # (Auto) 1.6 x10^3/uL (1.0-4.8) Monocytes # (Auto) 1.5 x10^3/uL (0.0-1.1) Eosinophils # (Auto) 0.1 x10^3/uL (0.0-0.7) Basophils # (Auto) 0.1 x10^3/uL (0.0-0.2) Sodium Level 140 mmol/L (136-145) Potassium Level 4.2 mmol/L (3.5-5.1) Chloride Level 101 mmol/L (98-107) Carbon Dioxide Level 28 mmol/L (21-32) Anion Gap 11 (6-14) Blood Urea Nitrogen 10 mg/dL (7-20) Creatinine 0.6 mg/dL (0.6-1.0) Estimated GFR (Cockcroft-Gault) 124.2 Glucose Level 106 mg/dL (70-99) Calcium Level 11.2 mg/dL (8.5-10.1) Body Fluid Source Pleural Body Fluid Color Yellow Body Fluid Clarity Turbid Body Fluid pH 7.4 Body Fluid Nucleated Cells 2125 /cmm Body Fluid Mononuclear WBCs (%) 23 % Body Fluid Polymorphonuclear Cells 77 % Body Fluid Total RBCs Counted 2175 /cmm Body Fluid Glucose 94 mg/dL (.) Body Fluid Total Protein 5.4 g/dL (.) Body Fluid Lactate Dehydrogenase 192 IU/L (.) Body Fluid Triglycerides 44 mg/dL (.) Test 10/09/16 06:00 White Blood Count 10.3 x10^3/uL (4.0-11.0) Red Blood Count 4.46 x10^6/uL (3.50-5.40) Hemoglobin 14.1 g/dL (12.0-15.5) Hematocrit 42.3 % (36.0-47.0) Mean Corpuscular Volume 95 fL (79-100) Mean Corpuscular Hemoglobin 32 pg (25-35) Mean Corpuscular Hemoglobin Concent 33 g/dL (31-37) Red Cell Distribution Width 13.2 % (11.5-14.5) Platelet Count 285 x10^3/uL (140-400) Neutrophils (%) (Auto) 63 % (31-73) Lymphocytes (%) (Auto) 16 % (24-48) Monocytes (%) (Auto) 17 % (0-9) Eosinophils (%) (Auto) 3 % (0-3) Basophils (%) (Auto) 1 % (0-3) Neutrophils # (Auto) 6.5 x10^3uL (1.8-7.7) Lymphocytes # (Auto) 1.7 x10^3/uL (1.0-4.8) Monocytes # (Auto) 1.8 x10^3/uL (0.0-1.1) Eosinophils # (Auto) 0.3 x10^3/uL (0.0-0.7) Basophils # (Auto) 0.0 x10^3/uL (0.0-0.2) Sodium Level 136 mmol/L (136-145) Potassium Level 4.1 mmol/L (3.5-5.1) Chloride Level 99 mmol/L (98-107) Carbon Dioxide Level 29 mmol/L (21-32) Anion Gap 8 (6-14) Blood Urea Nitrogen 12 mg/dL (7-20) Creatinine 0.7 mg/dL (0.6-1.0) Estimated GFR (Cockcroft-Gault) 104.0 Glucose Level 122 mg/dL (70-99) Calcium Level 10.9 mg/dL (8.5-10.1) Magnesium Level 1.8 mg/dL (1.8-2.4) Laboratory Tests Test 10/09/16 06:00 White Blood Count 10.3 x10^3/uL (4.0-11.0) Red Blood Count 4.46 x10^6/uL (3.50-5.40) Hemoglobin 14.1 g/dL (12.0-15.5) Hematocrit 42.3 % (36.0-47.0) Mean Corpuscular Volume 95 fL (79-100) Mean Corpuscular Hemoglobin 32 pg (25-35) Mean Corpuscular Hemoglobin Concent 33 g/dL (31-37) Red Cell Distribution Width 13.2 % (11.5-14.5) Platelet Count 285 x10^3/uL (140-400) Neutrophils (%) (Auto) 63 % (31-73) Lymphocytes (%) (Auto) 16 % (24-48) Monocytes (%) (Auto) 17 % (0-9) Eosinophils (%) (Auto) 3 % (0-3) Basophils (%) (Auto) 1 % (0-3) Neutrophils # (Auto) 6.5 x10^3uL (1.8-7.7) Lymphocytes # (Auto) 1.7 x10^3/uL (1.0-4.8) Monocytes # (Auto) 1.8 x10^3/uL (0.0-1.1) Eosinophils # (Auto) 0.3 x10^3/uL (0.0-0.7) Basophils # (Auto) 0.0 x10^3/uL (0.0-0.2) Sodium Level 136 mmol/L (136-145) Potassium Level 4.1 mmol/L (3.5-5.1) Chloride Level 99 mmol/L (98-107) Carbon Dioxide Level 29 mmol/L (21-32) Anion Gap 8 (6-14) Blood Urea Nitrogen 12 mg/dL (7-20) Creatinine 0.7 mg/dL (0.6-1.0) Estimated GFR (Cockcroft-Gault) 104.0 Glucose Level 122 mg/dL (70-99) Calcium Level 10.9 mg/dL (8.5-10.1) Magnesium Level 1.8 mg/dL (1.8-2.4) Microbiology 10/08/16 Gram Stain - Final, Complete 10/07/16 Urine Culture - Preliminary, Resulted 10/07/16 Urine Culture Result 1 (PERI) - Preliminary, Resulted Medications Current Medications Albuterol/ Ipratropium (Duoneb) 3 ml 1X ONCE NEB Last administered on t 14:01; Start 10/07/16 at 13:30; Stop 10/07/16 at 13:31; Status DC Acetaminophen (Tylenol) 650 mg PRN Q6HRS PRN PO FEVER; Start 10/07/16 at 15:45 Ondansetron HCl (Zofran) 4 mg PRN Q6HRS PRN IV NAUSEA/VOMITING; Start 10/07/16 at 15:45 Morphine Sulfate 2 mg PRN Q2HR PRN IV PAIN; Start 10/07/16 at 15:45 Tramadol HCl (Ultram) 50 mg PRN Q6HRS PRN PO PAIN Last administered on 10:00; Start 10/07/16 at 15:45 Hydralazine HCl (Apresoline) 10 mg PRN Q4HRS PRN IVP ELEVATED BP, SEE COMMENTS ; Start 10/07/16 at 15:45 Docusate Sodium (Colace) 100 mg PRN DAILY PRN PO CONSTIPATION; Start 10/07/16 at 15:45 Albuterol/ Ipratropium (Duoneb) 3 ml RTQID NEB Last administered on 10/09/16 11:42; Start 10/07/16 at 16:00 Albuterol Sulfate (Ventolin Neb Soln) 2.5 mg PRN Q2HR PRN NEB SHORTNESS OF BREATH; Start 10/07/16 at 15:45 Guaifenesin (Mucinex) 600 mg BID PO Last administered on 10/09/16 09:50; Start 10/07/16 at 21:00 Nicotine (Nicoderm Cq 7mg) 1 patch PRN DAILY PRN TD SMOKING CESSATION; Start at 15:45 Heparin Sodium (Porcine) (Heparin Sq) 5,000 unit Q8HRS SQ Last administered on 10/07/16 21:17; Start 10/07/16 at 22:00; Stop 10/07/16 at 23:07; Status DC Throat Lozenges (Cepacol Sore Throat Lozenge) 1 moises PRN Q2HRS PRN PO SORE THROAT Last administered on 10/08/16 20:40; Start 10/07/16 at 15:45 Magnesium Sulfate/ Dextrose 50 ml @ 25 mls/hr 1X ONCE IV Last administered on 10/07/16 16:03; Start 10/07/16 at 15:45; Stop 10/07/16 at 17:44; Status DC Lidocaine/Sodium Bicarbonate (Buffered Lidocaine 1%) 20 ml STK-MED ONCE IJ ; Start 10/08/16 at 12:39; Stop 10/08/16 at 12:40; Status DC Midazolam HCl (Versed) 5 mg STK-MED ONCE .ROUTE ; Start 10/08/16 at 13:05; Stop 10/08/16 at 13:06; Status DC Fentanyl Citrate (Fentanyl 5ml Vial) 250 mcg STK-MED ONCE .ROUTE ; Start at 13:05; Stop 10/08/16 at 13:06; Status DC Lidocaine/Sodium Bicarbonate (Buffered Lidocaine 1%) 9 ml 1X ONCE IJ Last administered on 10/08/16 13:41; Start 10/08/16 at 13:30; Stop 10/08/16 at 13:32 ; Status DC Midazolam HCl (Versed) 1 mg 1X ONCE IV Last administered on 10/08/16 13:42; Start 10/08/16 at 13:30; Stop 10/08/16 at 13:32; Status DC Fentanyl Citrate (Fentanyl 5ml Vial) 50 mcg 1X ONCE IV Last administered on 13:42; Start 10/08/16 at 13:30; Stop 10/08/16 at 13:32; Status DC Iohexol (Omnipaque 300 Mg/ml) 75 ml 1X ONCE IV Last administered on 10/09/16 11:58; Start 10/09/16 at 11:45; Stop 10/09/16 at 11:46; Status DC Info (Do NOT chart on this entry -- for MONITORING) 1 each PRN DAILY PRN MC SEE COMMENTS; Start 10/09/16 at 11:45; Stop 10/11/16 at 11:44 Active Scripts Active No Active Prescriptions or Reported Medications Vitals/I & O Vital Sign - Last 24 Hours 10/08/16 10/08/16 10/08/16 10/08/16 15:01 15:10 15:51 19:32 Temp 97.8 99.4 97.8 99.4 Pulse 81 97 Resp 19 18 B/P (MAP) 114/78 (90) 137/86 (103) Pulse Ox 97 97 97 96 O2 Delivery Nasal Cannula Room Air Nasal Cannula O2 Flow Rate 2.0 2.0 2.0 10/08/16 10/08/16 10/08/1610/09/17 20:00 21:27 23:04 03:27 Temp 98.3 98.2 98.3 98.2 Pulse 92 89 Resp 16 16 B/P (MAP) 109/74 (86) 127/85 (99) Pulse Ox 94 96 O2 Delivery Nasal Cannula Nasal Cannula Nasal Cannula Nasal Cannula O2 Flow Rate 2.0 2.0 2.0 2.0 10/09/16 10/09/16 10/09/16 10/09/16 07:06 07:48 08:00 10:00 Temp 98.2 98.2 Pulse 86 Resp 19 24 B/P (MAP) 113/76 (88) Pulse Ox 95 98 O2 Delivery Nasal Cannula Nasal Cannula Nasal Cannula Nasal Cannula O2 Flow Rate 2.0 2.0 2.0 2.0 10/09/16 10/09/16 10/09/16 10/09/16 11:00 11:15 11:44 14:27 Temp 99.2 98.1 99.2 98.1 Pulse 91 92 Resp 20 20 B/P (MAP) 114/79 (91) 115/75 (88) Pulse Ox 97 98 95 O2 Delivery Nasal Cannula Nasal Cannula Nasal Cannula Nasal Cannula O2 Flow Rate 2.0 2.0 2.0 2.0 Intake and Output 10/08/16 10/08/16 10/09/16 14:59 22:59 06:59 Intake Total 0 ml 400 ml Output Total 1612 ml 150 ml 500 ml Balance -1612 ml -150 ml -100 ml MANUEL GENAO MD Oct 09, 2016 14:59
--- NOTE | 2016-10-09 16:14 | PDOC2 ---
GI CONSULT Reason For Consult: ?esophageal cancer HPI: HPI: 56 y/o female evaluated in the ER for SOA and left-sided chest pain, admitted . Found to have large left-sided pleural effusion, underwent thoracentesis on 10/08 w/ removal of 1600cc of fluid. Today, CT chest/abd/pelv showed middle mediastinal abnormal soft tissue, suspicious for esophageal neoplasm, w/ significant abnormal pleural nodularity on the left worrisome for pleural metastatic disease. GI consulted for further evaluation. She tells me she has had intermittent feeling of being unable to burp while she eats w/ some globus and odynophagia, mostly w/ pills. Takes Advil PRN for muscle aches. Denies regurgitation and choking, perhaps has some heartburn. She has lost 2-3 pounds recently. No abd pain, diarrhea, constipation, hematochezia, melena, n/v. No previous EGD or colonoscopy. PMH: PMH: Denies. FH: Family History: No pertinent hx (denies GI cancers) Social History: Smoke: <1 pack per day ALCOHOL: other (with her girlfriends, usually 4 beers at a time, not daily) Drugs: None ROS: GEN: Denies fevers, chills, sweats HEENT: Denies blurred vision, sore throat CV: +chest pain RESP: +SOA GI: Per HPI : Denies hematuria, dysuria ENDO: +weight loss NEURO: Denies confusion, dizziness MSK: Denies weakness, joint pain/swelling SKIN: Denies jaundice, pruritus Vitals: Vitals: Vital Signs Date Time Temp Pulse Resp B/P (MAP) Pulse Ox O2 Delivery O2 Flow Rate FiO2 10/09/16 14:27 98.1 92 20 115/75 (88) 95 Nasal Cannula 2.0 98.1 Labs: Labs: Laboratory Tests Test 10/09/16 06:00 White Blood Count 10.3 x10^3/uL (4.0-11.0) Red Blood Count 4.46 x10^6/uL (3.50-5.40) Hemoglobin 14.1 g/dL (12.0-15.5) Hematocrit 42.3 % (36.0-47.0) Mean Corpuscular Volume 95 fL (79-100) Mean Corpuscular Hemoglobin 32 pg (25-35) Mean Corpuscular Hemoglobin Concent 33 g/dL (31-37) Red Cell Distribution Width 13.2 % (11.5-14.5) Platelet Count 285 x10^3/uL (140-400) Neutrophils (%) (Auto) 63 % (31-73) Lymphocytes (%) (Auto) 16 % (24-48) Monocytes (%) (Auto) 17 % (0-9) Eosinophils (%) (Auto) 3 % (0-3) Basophils (%) (Auto) 1 % (0-3) Neutrophils # (Auto) 6.5 x10^3uL (1.8-7.7) Lymphocytes # (Auto) 1.7 x10^3/uL (1.0-4.8) Monocytes # (Auto) 1.8 x10^3/uL (0.0-1.1) Eosinophils # (Auto) 0.3 x10^3/uL (0.0-0.7) Basophils # (Auto) 0.0 x10^3/uL (0.0-0.2) Sodium Level 136 mmol/L (136-145) Potassium Level 4.1 mmol/L (3.5-5.1) Chloride Level 99 mmol/L (98-107) Carbon Dioxide Level 29 mmol/L (21-32) Anion Gap 8 (6-14) Blood Urea Nitrogen 12 mg/dL (7-20) Creatinine 0.7 mg/dL (0.6-1.0) Estimated GFR (Cockcroft-Gault) 104.0 Glucose Level 122 mg/dL (70-99) Calcium Level 10.9 mg/dL (8.5-10.1) Magnesium Level 1.8 mg/dL (1.8-2.4) Allergies: Coded Allergies: No Known Drug Allergies (Unverified , 10/02/15) Medications: Current Medications Medications (Trade) Dose Ordered Sig/Payal Route PRN Reason Start Time Stop Time Status Last Admin Dose Admin Iohexol (Omnipaque 300 Mg/ml) 75 ml 1X ONCE IV 10/09/16 11:45 10/09/16 11:46 DC 10/09/16 11:58 Imaging: Imaging: CXR 10/07/16 IMPRESSION: Large left-sided pleural effusion. CXR 10/08/16 Impression: Significant reduction in pleural effusion on the left status post thoracentesis. No pneumothorax is identified. CT chest/abd/pelv 10/09/16 Impression: 1. Middle mediastinal abnormal soft tissue, suspicious for esophageal neoplasm. Endoscopy is recommended for further evaluation. There is also significant abnormal pleural nodularity on the left, as described with mild multiloculated pleural effusions and consolidation on the left. Findings are worrisome for pleural metastatic disease.. 2. No evidence of abdominal or pelvic lymphadenopathy or metastatic disease. 3. Enlarged right ovary. Correlation with pelvic sonography could be performed for better characterization. PE: GEN: NAD HEENT: Atraumatic, PERRL LUNGS: diminished HEART: RRR ABD: NABS, S/ND/NT EXTREMITY: No edema SKIN: No rashes, no jaundice NEURO/PSYCH: A & O 3 A/P: A/P: SOA, left-sided chest pain, globus -globus intermittently bothersome w/ pills, feels like she can't burp Left pleural effusion s/p thoracentesis 10/[address] chest -concerning for esophageal neoplasm w/ metastatic disease -h/o tobacco and alcohol use CRC screen -no previous colonoscopy -- Discussed CT results and offered EGD tomorrow morning. She wants to consider and talk w/ her family first. SOWMYA BARON Oct 09, 2016 16:14
[2016-10-09] MEDS ORDERED: diphenhydrAMINE 50 MG/ML VIAL IVP ONE (18:15)
[2016-10-09] MEDS ORDERED: methylPREDNISolone SOD SUCC PF 40 MG/ML VIAL. IV ONE (18:15)
[2016-10-09 19:15] VITALS: BP 131/97
[2016-10-09 23:15] VITALS: BP 128/81
[2016-10-10] VITALS (13 sets, daily range): BP systolic 96–147; BP diastolic 68–91
[2016-10-10] MEDS: IPRATRPIUM/ALBUTEROL 0.5/2.5MG 3 ML NEBU. NEB SCH ×4 (07:45→19:38)
--- NOTE | 2016-10-10 08:32 | PATHOLOGY ---
CYTOPATHOLOGY REPORT CLINICAL HISTORY: Not provided SPECIMEN(S) RECEIVED: A.Pleural fluid, Left FINAL DIAGNOSIS: Left pleural fluid, ThinPrep and cell block: - No malignant cells identified. - Reactive mesothelial cells identified within a background of marked acute inflammation. (JPM:mgr; 10/09/2016) PATHOLOGIST: Tru Yee M.D. REPORT ELECTRONICALLY SIGNED BY: Tru Yee M.D. DATE/TIME: 10/10/2016 08:31 GROSS PATHOLOGY: A. Pleural fluid, Left : The specimen is submitted unfixed, labeled "Marcus Phillips". Received by the Cytology Department is 31 mL of cloudy orange fluid. One ThinPrep slide and a cell block were prepared. (mm 10.08.2016) LEAD RAMP AGENT(S): GAMA Foster(ASCP) INITIAL CPT CODE(S): A; 92380, 45556 Professional services performed by [facility] [place] [address] Technical services performed by [facility] at [address] [place] [address], [address], [place] [address]. PATIENT: MARCUS PHILLIPS /AGE: 9 1960 (Age: 56) SEX: F PATIENT #: [id number] ALT CASE #: SPECIMEN COLLECTION DATE: 10/07/2016 SPECIMEN RECEIVED DATE: 10/08/[address] [facility] [address] [place] [address], [address] [place] [address] PHONE: [phone] DIRECTOR: Darshan Nick M.D. * * * END OF REPORT * * *
[2016-10-10] MEDS: IV RINGERS,LACTATED 1000ML 1,000 ML IV SCH ×2 (09:43→17:43)
[2016-10-10] MEDS ORDERED: MIDAZOLAM HCL/PF 2 MG/2 ML VIAL. IV PRN (09:45)
[2016-10-10] MEDS ORDERED: fentaNYL PF VIAL 100 MCG/2 ML VIAL IV PRN ×2 (09:45)
[2016-10-10] MEDS ORDERED: LIDOCAINE 1% 1 ML SYRINGE. ID PRN (09:45)
[2016-10-10] MEDS ORDERED: PROPOFOL 40 ML IV ONE (10:44)
[2016-10-10] MEDS ORDERED: LIDOCAINE 2% PF Vial for OR 5 ML VIAL. ONE (10:44)
--- NOTE | 2016-10-10 11:26 | PDOC4 ---
Operative Note Operative Note EGD with biopsies Meds propofol per anesthesia 110 mg Pre-op dx dysphagia/abnl Ct scan Post- op dx mid esophageal mass S/p bx malignancy 30-35 cm with 70% circumference involvement intubation required for respiratory distress during egd with apnea. BP/ pulse maintained during apneic period ROGER ANNA MD Oct 10, 2016 11:26
[2016-10-10] MEDS ORDERED: PROPOFOL 100 ML IV ONE (11:42)
[2016-10-10] MEDS ORDERED: MIDAZOLAM PREMIX 100 ML IV ONE ×2 (12:17→16:07)
--- NOTE | 2016-10-10 12:21 | PDOC ---
PULMONARY PROGRESS NOTES Subjective Patient became apneic and developed hypoxic RF post propofol before EGD intubated/sedated Vitals Vital Signs Date Time Temp Pulse Resp B/P (MAP) Pulse Ox O2 Delivery O2 Flow Rate FiO2 10/10/16 11:30 76 16 130/89 99 Ventilator 10/10/16 09:42 98.2 98.2 10/10/16 09:40 2.0 Lungs: Other (decrease bs) Cardiovascular: S1 Abdomen: Soft Extremities: No Edema Skin: Warm Labs Laboratory Tests Test 10/08/16 13:25 10/09/16 06:00 10/10/16 04:16 Body Fluid Source Pleural Body Fluid Color Yellow Body Fluid Clarity Turbid Body Fluid pH 7.4 Body Fluid Nucleated Cells 2125 /cmm Body Fluid Mononuclear WBCs (%) 23 % Body Fluid Polymorphonuclear Cells 77 % Body Fluid Total RBCs Counted 2175 /cmm Body Fluid Glucose 94 mg/dL (.) Body Fluid Total Protein 5.4 g/dL (.) Body Fluid Lactate Dehydrogenase 192 IU/L (.) Body Fluid Triglycerides 44 mg/dL (.) White Blood Count 10.3 x10^3/uL (4.0-11.0) Red Blood Count 4.46 x10^6/uL (3.50-5.40) Hemoglobin 14.1 g/dL (12.0-15.5) Hematocrit 42.3 % (36.0-47.0) Mean Corpuscular Volume 95 fL (79-100) Mean Corpuscular Hemoglobin 32 pg (25-35) Mean Corpuscular Hemoglobin Concent 33 g/dL (31-37) Red Cell Distribution Width 13.2 % (11.5-14.5) Platelet Count 285 x10^3/uL (140-400) Neutrophils (%) (Auto) 63 % (31-73) Lymphocytes (%) (Auto) 16 % (24-48) Monocytes (%) (Auto) 17 % (0-9) Eosinophils (%) (Auto) 3 % (0-3) Basophils (%) (Auto) 1 % (0-3) Neutrophils # (Auto) 6.5 x10^3uL (1.8-7.7) Lymphocytes # (Auto) 1.7 x10^3/uL (1.0-4.8) Monocytes # (Auto) 1.8 x10^3/uL (0.0-1.1) Eosinophils # (Auto) 0.3 x10^3/uL (0.0-0.7) Basophils # (Auto) 0.0 x10^3/uL (0.0-0.2) Sodium Level 136 mmol/L (136-145) Potassium Level 4.1 mmol/L (3.5-5.1) Chloride Level 99 mmol/L (98-107) Carbon Dioxide Level 29 mmol/L (21-32) Anion Gap 8 (6-14) Blood Urea Nitrogen 12 mg/dL (7-20) Creatinine 0.7 mg/dL (0.6-1.0) Estimated GFR (Cockcroft-Gault) 104.0 Glucose Level 122 mg/dL (70-99) Calcium Level 10.9 mg/dL (8.5-10.1) 10.9 mg/dL (8.5-10.1) Magnesium Level 1.8 mg/dL (1.8-2.4) 25-Hydroxy Vitamin D Total 19.6 ng/mL (30.0-100.0) Laboratory Tests Test 10/10/16 04:16 Calcium Level 10.9 mg/dL (8.5-10.1) Medications Active Scripts Medications Dose Route/Sig Max Daily Dose Days Date Category No Active Prescriptions or Reported Medications Rx Impression . 1.Acute RF post propofol prior to EGD 2.Esophageal mass, s/p biopsy/ obstructing esophageal neoplasm 3.Large left sided effusion in a smoker with weight loss, suspect malignancy, cytology negative. 4. Abnormal ct chest with esophageal mass, left pleural mets ? infectious etiology of left effusion 2.Suspect hypercalcemia of malignancy Plan . AC mode keep her on Vent till no further esophageal bleeding d/w Dr Godoy follow CXR Oncology consult s/p ct guided left thoracentesis 10/08. 1600 cc removed Neg cytology, still suspect malignant Poor prognosis. DARIELA العلي MD Oct 10, 2016 12:21
--- NOTE | 2016-10-10 12:42 | RAD ---
Indication: Post intubation. Time of exam 12:25 PM Comparison is made with prior exam from 10/08/2016. An endotracheal tube has been placed and has the tip above the collin. Moderate left effusion with left basilar infiltrate or atelectasis persists. The right lung is clear. No pneumothorax is seen. Impression: Satisfactory endotracheal tube placement.
[2016-10-10 12:43] LABS: HCO3 ABG 24 mmol/L (21-28); PCO2 ABG 28 mmHg (35-46); PO2 ABG 430 mmHg (75-108); SAT O2 ABG 100 % (92-99)
[2016-10-10 12:49] LABS: FIO2 ABG 100; PH ABG 7.55 (7.35-7.45)
--- NOTE | 2016-10-10 12:50 | PDOC ---
PROGRESS NOTES Chief Complaint Chief Complaint sob with left side pleural effusion, 2/2 malignancy likely hypercalcemia 2/2 malignancy? hypomagnesemia URI likely 2/2 viral infection tobaccoism SIRS with viral bronchitis likely esophageal Mass acute resp failure post EGD plan: pulm, IR consult for thoracentesis 10/07 duoneb, cough meds, albuterol prn echo high tsh, t4 normal gi ppx lee CT done, showed possible esophageal Ca and pleural mets. gi consult. check mag, vitd, Ca. EGD today showed mid esophageal mass, bx taken, follow path. talked to ICU nurse, keep intubated for today, add PPN, HOLD dvt ppx onco consult, PAT consult History of Present Illness History of Present Illness feels neck pain slighlty better, thoracentesis done 10/08, 1.6L removed, looks like transudate, cytology neg for mag lee CT done showed esophageal mass, EGD today, showed mid esophageal mass, with possible broch fistula with some bleeding post bx then could not extubate her, transfer to ICU Vitals Vitals Vital Signs Date Time Temp Pulse Resp B/P (MAP) Pulse Ox O2 Delivery O2 Flow Rate FiO2 10/10/16 12:10 Ventilator 10/10/16 11:30 76 16 130/89 99 10/10/16 09:42 98.2 98.2 10/10/16 09:40 2.0 Physical Exam General: Alert, Oriented X3, Cooperative Heart: Regular rate, Normal S1, Normal S2 Lungs: Other (decrease bs) Abdomen: Normal bowel sounds, Soft, No tenderness Extremities: No clubbing, No cyanosis Skin: No rashes Labs LABS Laboratory Tests Test 10/10/16 04:16 Calcium Level 10.9 mg/dL (8.5-10.1) Review of Systems Review of Systems no fever, chills, sob or chest pain Comment Review of Relevant I have reviewed the following items fausto (where applicable) has been applied. Labs Laboratory Tests Test 10/08/16 13:25 10/09/16 06:00 10/10/16 04:16 Body Fluid Source Pleural Body Fluid Color Yellow Body Fluid Clarity Turbid Body Fluid pH 7.4 Body Fluid Nucleated Cells 2125 /cmm Body Fluid Mononuclear WBCs (%) 23 % Body Fluid Polymorphonuclear Cells 77 % Body Fluid Total RBCs Counted 2175 /cmm Body Fluid Glucose 94 mg/dL (.) Body Fluid Total Protein 5.4 g/dL (.) Body Fluid Lactate Dehydrogenase 192 IU/L (.) Body Fluid Triglycerides 44 mg/dL (.) White Blood Count 10.3 x10^3/uL (4.0-11.0) Red Blood Count 4.46 x10^6/uL (3.50-5.40) Hemoglobin 14.1 g/dL (12.0-15.5) Hematocrit 42.3 % (36.0-47.0) Mean Corpuscular Volume 95 fL (79-100) Mean Corpuscular Hemoglobin 32 pg (25-35) Mean Corpuscular Hemoglobin Concent 33 g/dL (31-37) Red Cell Distribution Width 13.2 % (11.5-14.5) Platelet Count 285 x10^3/uL (140-400) Neutrophils (%) (Auto) 63 % (31-73) Lymphocytes (%) (Auto) 16 % (24-48) Monocytes (%) (Auto) 17 % (0-9) Eosinophils (%) (Auto) 3 % (0-3) Basophils (%) (Auto) 1 % (0-3) Neutrophils # (Auto) 6.5 x10^3uL (1.8-7.7) Lymphocytes # (Auto) 1.7 x10^3/uL (1.0-4.8) Monocytes # (Auto) 1.8 x10^3/uL (0.0-1.1) Eosinophils # (Auto) 0.3 x10^3/uL (0.0-0.7) Basophils # (Auto) 0.0 x10^3/uL (0.0-0.2) Sodium Level 136 mmol/L (136-145) Potassium Level 4.1 mmol/L (3.5-5.1) Chloride Level 99 mmol/L (98-107) Carbon Dioxide Level 29 mmol/L (21-32) Anion Gap 8 (6-14) Blood Urea Nitrogen 12 mg/dL (7-20) Creatinine 0.7 mg/dL (0.6-1.0) Estimated GFR (Cockcroft-Gault) 104.0 Glucose Level 122 mg/dL (70-99) Calcium Level 10.9 mg/dL (8.5-10.1) 10.9 mg/dL (8.5-10.1) Magnesium Level 1.8 mg/dL (1.8-2.4) 25-Hydroxy Vitamin D Total 19.6 ng/mL (30.0-100.0) Laboratory Tests Test 10/10/16 04:16 Calcium Level 10.9 mg/dL (8.5-10.1) Microbiology 10/08/16 Gram Stain - Final, Complete 10/07/16 Urine Culture - Final, Complete 10/07/16 Urine Culture Result 1 (PERI) - Final, Complete Medications Current Medications Albuterol/ Ipratropium (Duoneb) 3 ml 1X ONCE NEB Last administered on 14:01; Start 10/07/16 at 13:30; Stop 10/07/16 at 13:31; Status DC Acetaminophen (Tylenol) 650 mg PRN Q6HRS PRN PO FEVER; Start 10/07/16 at 15:45 Ondansetron HCl (Zofran) 4 mg PRN Q6HRS PRN IV NAUSEA/VOMITING; Start 10/07/16 at 15:45 Morphine Sulfate 2 mg PRN Q2HR PRN IV PAIN; Start 10/07/16 at 15:45 Tramadol HCl (Ultram) 50 mg PRN Q6HRS PRN PO PAIN Last administered on 20:58; Start 10/07/16 at 15:45 Hydralazine HCl (Apresoline) 10 mg PRN Q4HRS PRN IVP ELEVATED BP, SEE COMMENTS ; Start 10/07/16 at 15:45 Docusate Sodium (Colace) 100 mg PRN DAILY PRN PO CONSTIPATION; Start 10/07/16 at 15:45 Albuterol/ Ipratropium (Duoneb) 3 ml RTQID NEB Last administered on 10/10/16 07:45; Start 10/07/16 at 16:00 Albuterol Sulfate (Ventolin Neb Soln) 2.5 mg PRN Q2HR PRN NEB SHORTNESS OF BREATH; Start 10/07/16 at 15:45 Guaifenesin (Mucinex) 600 mg BID PO Last administered on 10/09/16 20:58; Start 10/07/16 at 21:00 Nicotine (Nicoderm Cq 7mg) 1 patch PRN DAILY PRN TD SMOKING CESSATION; Start at 15:45 Heparin Sodium (Porcine) (Heparin Sq) 5,000 unit Q8HRS SQ Last administered on 10/07/16 21:17; Start 10/07/16 at 22:00; Stop 10/07/16 at 23:07; Status DC Throat Lozenges (Cepacol Sore Throat Lozenge) 1 moises PRN Q2HRS PRN PO SORE THROAT Last administered on 10/08/16 20:40; Start 10/07/16 at 15:45 Magnesium Sulfate/ Dextrose 50 ml @ 25 mls/hr 1X ONCE IV Last administered on 10/07/16 16:03; Start 10/07/16 at 15:45; Stop 10/07/16 at 17:44; Status DC Lidocaine/Sodium Bicarbonate (Buffered Lidocaine 1%) 20 ml STK-MED ONCE IJ ; Start 10/08/16 at 12:39; Stop 10/08/16 at 12:40; Status DC Midazolam HCl (Versed) 5 mg STK-MED ONCE .ROUTE ; Start 10/08/16 at 13:05; Stop 10/08/16 at 13:06; Status DC Fentanyl Citrate (Fentanyl 5ml Vial) 250 mcg STK-MED ONCE .ROUTE ; Start at 13:05; Stop 10/08/16 at 13:06; Status DC Lidocaine/Sodium Bicarbonate (Buffered Lidocaine 1%) 9 ml 1X ONCE IJ Last administered on 10/08/16 13:41; Start 10/08/16 at 13:30; Stop 10/08/16 at 13:32 ; Status DC Midazolam HCl (Versed) 1 mg 1X ONCE IV Last administered on 10/08/16 13:42; Start 10/08/16 at 13:30; Stop 10/08/16 at 13:32; Status DC Fentanyl Citrate (Fentanyl 5ml Vial) 50 mcg 1X ONCE IV Last administered on 13:42; Start 10/08/16 at 13:30; Stop 10/08/16 at 13:32; Status DC Iohexol (Omnipaque 300 Mg/ml) 75 ml 1X ONCE IV Last administered on 10/09/16 11:58; Start 10/09/16 at 11:45; Stop 10/09/16 at 11:46; Status DC Info (Do NOT chart on this entry -- for MONITORING) 1 each PRN DAILY PRN MC SEE COMMENTS; Start 10/09/16 at 11:45; Stop 10/11/16 at 11:44 Diphenhydramine HCl (Benadryl) 50 mg 1X ONCE IVP Last administered on 18:24; Start 10/09/16 at 18:15; Stop 10/09/16 at 18:16; Status DC Methylprednisolone Sodium Succinate (SOLU-Medrol 40MG VIAL) 40 mg 1X ONCE IV Last administered on 10/09/16t 18:24; Start 10/09/16 at 18:15; Stop 10/09/16 at 18:16; Status DC Midazolam HCl (Versed) 2 mg PRN 1X PRN IV PRIOR TO PROCEDURE; Start 10/10/16 at 09:45; Stop 10/11/16 at 09:44 Fentanyl Citrate (Fentanyl 2ml Vial) 25 mcg PRN Q5MIN PRN IV X 2 DOSES FOR PAIN ; Start 10/10/16 at 09:45; Stop 10/11/16 at 09:44 Fentanyl Citrate (Fentanyl 2ml Vial) 50 mcg PRN Q5MIN PRN IV X 2 DOSES FOR PAIN ; Start 10/10/16 at 09:45; Stop 10/11/16 at 09:44 Ringer's Solution 1,000 ml @ 125 mls/hr Q8H IV ; Start 10/10/16 at 09:43; Stop 10/10/16 at 21:42 Lidocaine HCl 2 ml 1X PRN PRN ID IV START; Start 10/10/16 at 09:45; Stop at 09:44 Propofol 40 ml @ As Directed STK-MED ONCE IV ; Start 10/10/16 at 10:44; Stop at 10:45; Status DC Lidocaine HCl (Lidocaine Pf 2% Vial) 5 ml STK-MED ONCE .ROUTE ; Start 10/10/16 at 10:44; Stop 10/10/16 at 10:45; Status DC Propofol 100 ml @ As Directed STK-MED ONCE IV ; Start 10/10/16 at 11:42; Stop 10/10/16 at 11:43; Status DC Midazolam HCl 100 ml @ As Directed STK-MED ONCE IV ; Start 10/10/16 at 12:17; Stop 10/10/16 at 12:18; Status DC Active Scripts Active No Active Prescriptions or Reported Medications Vitals/I & O Vital Sign - Last 24 Hours 10/09/16 10/09/16 10/09/16 10/09/16 14:27 16:34 19:09 19:15 Temp 98.1 97.9 98.1 97.9 Pulse 92 107 Resp 20 18 B/P (MAP) 115/75 (88) 131/97 (108) Pulse Ox 95 98 94 O2 Delivery Nasal Cannula Nasal Cannula Nasal Cannula Nasal Cannula O2 Flow Rate 2.0 2.0 2.0 2.0 10/09/16 10/09/16 10/10/16 10/10/16 20:00 23:15 03:15 07:47 Temp 98.6 97.5 98.6 97.5 Pulse 98 94 Resp 18 18 B/P (MAP) 128/81 (97) 115/82 (93) Pulse Ox 95 90 94 O2 Delivery Nasal Cannula Nasal Cannula Room Air Room Air O2 Flow Rate 2.0 2.0 10/10/16 10/10/16 10/10/16 10/10/16 08:00 09:40 09:42 11:30 Temp 98.2 98.2 Pulse 91 76 Resp 20 16 B/P (MAP) 130/89 Pulse Ox 93 99 O2 Delivery Nasal Cannula Nasal Cannula Ventilator O2 Flow Rate 2.0 2.0 10/10/16 12:10 O2 Delivery Ventilator Intake and Output 10/09/16 10/09/16 10/10/16 15:00 23:00 07:00 Intake Total 240 ml 500 ml 500 ml Balance 240 ml 500 ml 500 ml MANUEL GENAO MD Oct 10, 2016 12:50
--- NOTE | 2016-10-10 16:24 | PDOC2 ---
PALLIATIVE CARE Palliative Care Note Palliative Care Consult requested by Dr. Naylor to address goals of care. Diagnosis: Sob with left side pleural effusion, 2/2 malignancy likely hypercalcemia 2/2 malignancy? hypomagnesemia URI likely 2/2 viral infection tobaccoism SIRS with viral bronchitis likely esophageal Mass acute resp failure post EGD Patient intubated. Vent . Restless at times Will and daughter Justyna here briefly. Medical condition reviewed. Brief discussion about code status; Full Code. Attempted to arrange family meeting Thursday. No commitment to time per family. REYNA LANDON Oct 10, 2016 16:24
--- NOTE | 2016-10-10 16:43 | PDOC2 ---
CONSULT Date of Consult Date of Consult DATE: 10/10/16 TIME: 16:31 Reason for Consult Reason for Consult: Esophageal mass, left pleural effusion, hypercalcemia History of Present Illness Reason for Visit: Admitted for SOB, CP, CXR with large left pleural effusion s/p 1600 ml thoracentesis on 10/08, path neg for malignant cells. CT C/A/P showed mediastinal mass and 5.9 cm pleural thickening concerning for esophageal malignancy, possible lung mets. EGD completed with path pending but confirming 70% circumferential mass at 30- 25 cm. Experienced resp distress and required intubation. Difficult to sedate. Family not present currently, apparently lacked good understanding when pall care attempted to relay events and significance of this situation. Past Medical History Past Medical History neg per chart review Past Surgical History Past Surgical History neg per chart Past Surgical History: No pertinent history Family History Family History neg per chart Social History <1 pack per day ALCOHOL: other (with her girlfriends, usually 4 beers at a time, not daily) Drugs: None Current Medications Current Medications Current Medications Albuterol/ Ipratropium (Duoneb) 3 ml 1X ONCE NEB Last administered on 14:01; Start 10/07/16 at 13:30; Stop 10/07/16 at 13:31; Status DC Acetaminophen (Tylenol) 650 mg PRN Q6HRS PRN PO FEVER; Start 10/07/16 at 15:45 Ondansetron HCl (Zofran) 4 mg PRN Q6HRS PRN IV NAUSEA/VOMITING; Start 10/07/16 at 15:45 Morphine Sulfate 2 mg PRN Q2HR PRN IV PAIN; Start 10/07/16 at 15:45 Tramadol HCl (Ultram) 50 mg PRN Q6HRS PRN PO PAIN Last administered on 20:58; Start 10/07/16 at 15:45 Hydralazine HCl (Apresoline) 10 mg PRN Q4HRS PRN IVP ELEVATED BP, SEE COMMENTS ; Start 10/07/16 at 15:45 Docusate Sodium (Colace) 100 mg PRN DAILY PRN PO CONSTIPATION; Start 10/07/16 at 15:45 Albuterol/ Ipratropium (Duoneb) 3 ml RTQID NEB Last administered on 6/30/17at 15:06; Start 10/07/16 at 16:00 Albuterol Sulfate (Ventolin Neb Soln) 2.5 mg PRN Q2HR PRN NEB SHORTNESS OF BREATH; Start 10/07/16 at 15:45 Guaifenesin (Mucinex) 600 mg BID PO Last administered on 10/09/16 20:58; Start 10/07/16 at 21:00 Nicotine (Nicoderm Cq 7mg) 1 patch PRN DAILY PRN TD SMOKING CESSATION; Start at 15:45 Heparin Sodium (Porcine) (Heparin Sq) 5,000 unit Q8HRS SQ Last administered on 10/07/16 21:17; Start 10/07/16 at 22:00; Stop 10/07/16 at 23:07; Status DC Throat Lozenges (Cepacol Sore Throat Lozenge) 1 moises PRN Q2HRS PRN PO SORE THROAT Last administered on 10/08/16 20:40; Start 10/07/16 at 15:45 Magnesium Sulfate/ Dextrose 50 ml @ 25 mls/hr 1X ONCE IV Last administered on 10/07/16 16:03; Start 10/07/16 at 15:45; Stop 10/07/16 at 17:44; Status DC Lidocaine/Sodium Bicarbonate (Buffered Lidocaine 1%) 20 ml STK-MED ONCE IJ ; Start 10/08/16 at 12:39; Stop 10/08/16 at 12:40; Status DC Midazolam HCl (Versed) 5 mg STK-MED ONCE .ROUTE ; Start 10/08/16 at 13:05; Stop 10/08/16 at 13:06; Status DC Fentanyl Citrate (Fentanyl 5ml Vial) 250 mcg STK-MED ONCE .ROUTE ; Start at 13:05; Stop 10/08/16 at 13:06; Status DC Lidocaine/Sodium Bicarbonate (Buffered Lidocaine 1%) 9 ml 1X ONCE IJ Last administered on 10/08/16 13:41; Start 10/08/16 at 13:30; Stop 10/08/16 at 13:32 ; Status DC Midazolam HCl (Versed) 1 mg 1X ONCE IV Last administered on 10/08/16 13:42; Start 10/08/16 at 13:30; Stop 10/08/16 at 13:32; Status DC Fentanyl Citrate (Fentanyl 5ml Vial) 50 mcg 1X ONCE IV Last administered on 13:42; Start 10/08/16 at 13:30; Stop 10/08/16 at 13:32; Status DC Iohexol (Omnipaque 300 Mg/ml) 75 ml 1X ONCE IV Last administered on 10/09/16 11:58; Start 10/09/16 at 11:45; Stop 10/09/16 at 11:46; Status DC Info (Do NOT chart on this entry -- for MONITORING) 1 each PRN DAILY PRN MC SEE COMMENTS; Start 10/09/16 at 11:45; Stop 10/11/16 at 11:44 Diphenhydramine HCl (Benadryl) 50 mg 1X ONCE IVP Last administered on 18:24; Start 10/09/16 at 18:15; Stop 10/09/16 at 18:16; Status DC Methylprednisolone Sodium Succinate (SOLU-Medrol 40MG VIAL) 40 mg 1X ONCE IV Last administered on 10/09/16 18:24; Start 10/09/16 at 18:15; Stop 10/09/16 at 18:16; Status DC Midazolam HCl (Versed) 2 mg PRN 1X PRN IV PRIOR TO PROCEDURE; Start 10/10/16 at 09:45; Stop 10/11/16 at 09:44 Fentanyl Citrate (Fentanyl 2ml Vial) 25 mcg PRN Q5MIN PRN IV X 2 DOSES FOR PAIN ; Start 10/10/16 at 09:45; Stop 10/11/16 at 09:44 Fentanyl Citrate (Fentanyl 2ml Vial) 50 mcg PRN Q5MIN PRN IV X 2 DOSES FOR PAIN ; Start 10/10/16 at 09:45; Stop 10/11/16 at 09:44 Ringer's Solution 1,000 ml @ 125 mls/hr Q8H IV ; Start 10/10/16 at 09:43; Stop 10/10/16 at 21:42 Lidocaine HCl 2 ml 1X PRN PRN ID IV START; Start 10/10/16 at 09:45; Stop at 09:44 Propofol 40 ml @ As Directed STK-MED ONCE IV ; Start 10/10/16 at 10:44; Stop at 10:45; Status DC Lidocaine HCl (Lidocaine Pf 2% Vial) 5 ml STK-MED ONCE .ROUTE ; Start 10/10/16 at 10:44; Stop 10/10/16 at 10:45; Status DC Propofol 100 ml @ As Directed STK-MED ONCE IV ; Start 10/10/16 at 11:42; Stop 10/10/16 at 11:43; Status DC Midazolam HCl 100 ml @ As Directed STK-MED ONCE IV ; Start 10/10/16 at 12:17; Stop 10/10/16 at 12:18; Status DC Enoxaparin Sodium (Lovenox 40mg Syringe) 40 mg Q24H SQ ; Start 10/11/16 at 10:00 ; Stop 10/11/16 at 10:00; Status DC Famotidine (Pepcid) 20 mg QHS IVP ; Start 10/10/16 at 21:00 Amino Acids/ Glycerin/ Electrolytes 1,000 ml @ 80 mls/hr [id number] IV ; Start at 14:00 Midazolam HCl 100 ml @ As Directed STK-MED ONCE IV ; Start 10/10/16 at 16:07; Stop 10/10/16 at 16:08; Status DC Fentanyl Citrate 30 ml @ 0 mls/hr CONT PRN PRN IV PROTOCOL; Start 10/10/16 at 16:30; Status UNV Midazolam HCl 100 ml @ 0 mls/hr CONT PRN IV SEE I/O RECORD; Start 10/10/16 at 16:30; Status UNV Active Scripts Active No Active Prescriptions or Reported Medications Allergies Allergies: Coded Allergies: No Known Drug Allergies (Unverified , 10/10/16) ROS Review of System unable to obtain due to sedated, intubated status Physical Exam General: Other (sedated) Lungs: Other (CTA, intubated) Heart: Regular rate, Normal S1, Normal S2 Abdomen: No masses Extremities: No edema Neuro: Other (sedated) Psych/Mental Status: Other (sedated, at timed agitated) Vitals VITALS Vital Signs Date Time Temp Pulse Resp B/P (MAP) Pulse Ox O2 Delivery O2 Flow Rate FiO2 10/10/16 15:06 100 Ventilator 10/10/16 15:00 85 14 139/87 (104) 10/10/16 09:42 98.2 98.2 10/10/16 09:40 2.0 Labs Labs Laboratory Tests Test 10/09/16 06:00 10/10/16 04:16 10/10/16 12:35 White Blood Count 10.3 x10^3/uL (4.0-11.0) Red Blood Count 4.46 x10^6/uL (3.50-5.40) Hemoglobin 14.1 g/dL (12.0-15.5) Hematocrit 42.3 % (36.0-47.0) Mean Corpuscular Volume 95 fL (79-100) Mean Corpuscular Hemoglobin 32 pg (25-35) Mean Corpuscular Hemoglobin Concent 33 g/dL (31-37) Red Cell Distribution Width 13.2 % (11.5-14.5) Platelet Count 285 x10^3/uL (140-400) Neutrophils (%) (Auto) 63 % (31-73) Lymphocytes (%) (Auto) 16 % (24-48) Monocytes (%) (Auto) 17 % (0-9) Eosinophils (%) (Auto) 3 % (0-3) Basophils (%) (Auto) 1 % (0-3) Neutrophils # (Auto) 6.5 x10^3uL (1.8-7.7) Lymphocytes # (Auto) 1.7 x10^3/uL (1.0-4.8) Monocytes # (Auto) 1.8 x10^3/uL (0.0-1.1) Eosinophils # (Auto) 0.3 x10^3/uL (0.0-0.7) Basophils # (Auto) 0.0 x10^3/uL (0.0-0.2) Sodium Level 136 mmol/L (136-145) Potassium Level 4.1 mmol/L (3.5-5.1) Chloride Level 99 mmol/L (98-107) Carbon Dioxide Level 29 mmol/L (21-32) Anion Gap 8 (6-14) Blood Urea Nitrogen 12 mg/dL (7-20) Creatinine 0.7 mg/dL (0.6-1.0) Estimated GFR (Cockcroft-Gault) 104.0 Glucose Level 122 mg/dL (70-99) Calcium Level 10.9 mg/dL (8.5-10.1) 10.9 mg/dL (8.5-10.1) Magnesium Level 1.8 mg/dL (1.8-2.4) 25-Hydroxy Vitamin D Total 19.6 ng/mL (30.0-100.0) O2 Saturation 100 % (92-99) Arterial Blood pH 7.55 (7.35-7.45) Arterial Blood pCO2 at Patient Temp 28 mmHg (35-46) Arterial Blood pO2 at Patient Temp 430 mmHg (75-108) Arterial Blood HCO3 24 mmol/L (21-28) Arterial Blood Base Excess 2 mmol/L (-3-3) FiO2 100 Laboratory Tests Test 10/10/16 04:16 10/10/16 12:35 Calcium Level 10.9 mg/dL (8.5-10.1) O2 Saturation 100 % (92-99) Arterial Blood pH 7.55 (7.35-7.45) Arterial Blood pCO2 at Patient Temp 28 mmHg (35-46) Arterial Blood pO2 at Patient Temp 430 mmHg (75-108) Arterial Blood HCO3 24 mmol/L (21-28) Arterial Blood Base Excess 2 mmol/L (-3-3) FiO2 [address] C/A/T, CXR, path, endoscopy results, medical device sales consultant notes reviewed as above Assessment/Plan Assessment/Plan 1. 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 Path pending s/p EGD today. Likely stage IV disease given the large effusion and pleural nodules. - F/u pending path - Can consider bx of pleural nodule later if needed to confirm staging if clinically improves overall - If Stage IV, only option is palliative chemo. Will need to see how clinical status, performance status improve if pt can tolerate chemo. Also, I understand insurance status may be a barrier to tx. - Palliative care following, possible family mtg early next week 2. Left pleural effusion s/p thoracentesis 10/08. Cytology neg, but false neg occur, suspect malignant. If malignant will likely reoccur. 3. Respiratory failure requiring intubation 4. Tobacco, alcohol abuse 5. Hypercalcemia. Aredia ordered. Will f/u Thursday but path unlikely to be back. Likely will be Thu before we can confirm diagnosis. Dr. Pierre is covering this weekend if urgent issues arise. D/W ICU nurse. KRISTIE WILLIS DO Oct 10, 2016 16:42
[2016-10-10] MEDS ORDERED: PAMIDRONATE 90 MG in IV NORMAL SALINE 250ML 250 ML IV ONE (17:00)
[2016-10-10] MEDS: MIDAZOLAM PREMIX 100 ML IV PRN (17:13)
[2016-10-10] MEDS: AMINO AC 3%/ELECTROLYTE/GLYCER 1,000 ML IV SCH (17:17)
[2016-10-10] MEDS: FAMOTIDINE 20 MG/2 ML VIAL IVP SCH (20:48)
[2016-10-10] MEDS: IV NORMAL SALINE 1000ML BAG 1,000 ML IV SCH (20:49)
[2016-10-11] VITALS (25 sets, daily range): BP systolic 90–156; BP diastolic 55–102
[2016-10-11] MEDS: MIDAZOLAM PREMIX 100 ML IV PRN (03:35)
[2016-10-11] MEDS: AMINO AC 3%/ELECTROLYTE/GLYCER 1,000 ML IV SCH ×2 (03:36→18:28)
[2016-10-11 05:48] LABS: BASO # 0.1 x10^3/uL (0.0-0.2); BASO % 1 % (0-3); EOS % 1 % (0-3); HEMATOCRIT 38.9 % (36.0-47.0); HEMOGLOBIN 12.4 g/dL (12.0-15.5); LYMPH # 1.8 x10^3/uL (1.0-4.8); LYMPH % 14 % (24-48); MEAN CORPUSCULAR HEMOGLOBIN 31 pg (25-35); MEAN CORPUSCULAR HGB CONC 32 g/dL (31-37); MEAN CORPUSCULAR VOLUME 98 fL (79-100); MONO % 15 % (0-9); NEUT % 70 % (31-73); PLATELET COUNT 218 x10^3/uL (140-400); RED BLOOD COUNT 3.96 x10^6/uL (3.50-5.40); RED CELL DISTRIBUTION WIDTH 13.6 % (11.5-14.5); WHITE BLOOD COUNT 13.2 x10^3/uL (4.0-11.0)
[2016-10-11 06:05] LABS: CALCIUM 9.4 mg/dL (8.5-10.1); CREATININE 0.6 mg/dL (0.6-1.0); GFR 124.2; POTASSIUM 3.8 mmol/L (3.5-5.1)
[2016-10-11 07:20] LABS: % EOS 1 % (0-5); PLT ESTIMATE ADEQUATE (ADEQUATE)
[2016-10-11] MEDS: IPRATRPIUM/ALBUTEROL 0.5/2.5MG 3 ML NEBU. NEB SCH ×4 (07:41→19:10)
[2016-10-11 07:52] LABS: HCO3 ABG 21 mmol/L (21-28); PCO2 ABG 32 mmHg (35-46); PH ABG 7.44 (7.35-7.45); PO2 ABG 103 mmHg (75-108); SAT O2 ABG 98 % (92-99)
--- NOTE | 2016-10-11 07:56 | RAD ---
Portable chest, 10/11/2016: History: Respiratory failure Comparison is made to a study from 10/10/2016. An ET tube remains in place with its tip located 5 cm above the collin. The heart is at the upper limits of normal in size. The pulmonary vascularity as best visualized on the right is within normal limits. There is minimal right basilar atelectasis and/or scarring. There are moderate pleural/parenchymal opacities in the left lower chest which have shown no improvement. The previous CT study showed that these are due to a combination of pleural thickening, pleural fluid and underlying atelectasis/infiltrate. There is no evidence of pneumothorax. No new abnormality is seen. IMPRESSION: No significant change since yesterday's study.
[2016-10-11 08:07] LABS: FIO2 ABG 40
--- NOTE | 2016-10-11 08:41 | PDOC ---
PROGRESS NOTES Chief Complaint Chief Complaint SOB ASSESSMENT AND PLAN: 1. Pleural effusion: suspected malignant, despite neg cytology on pleurocentesis on 10/08. anticipate recurrence 2. Esophageal mass: s/p EGD on 10/10 with bx; poss bronch fistula. appreciate Dr Godoy's help! 3. pulm nodules: c/w metastatic disease, making her stage 4. appreciate Dr Eric's input. palliative care involved 4. Hypercalcemia: paraneoplastic syndrome, often assoc with squamous cell CA. currently WNL; Vit D low; do not replete 5. Respir arrest at EGD: currently intubated; plan for extubation NATE; Dr Burr following 6. SIRS: likely 2/2 viral URI (vs aspir with fistula) 7. Leukocytosis: reactive after yesterday's events; monitor 8. Hypomagnesemia: resolved 9. CHF: diastolic by echo during current admit. mild 10. abn TSH: minimally elevated, but with normal T4. on intervention indicated 11. Tobaccoism 12. Prophylaxis: PPI History of Present Illness History of Present Illness intubated, awake Vitals Vitals Vital Signs Date Time Temp Pulse Resp B/P (MAP) Pulse Ox O2 Delivery O2 Flow Rate FiO2 10/11/16 07:41 100 Ventilator 10/11/16 06:00 84 14 107/68 (81) 10/11/16 05:00 98.7 98.7 10/10/16 17:17 2.0 Physical Exam General: Other (intubated, awake, agitated) Heart: Regular rate Lungs: Clear Abdomen: Normal bowel sounds, No masses Extremities: No edema Skin: No rashes Labs LABS Laboratory Tests Test 10/10/16 12:35 10/11/16 05:00 10/11/16 07:59 10/11/16 08:00 O2 Saturation 100 % (92-99) 98 % (92-99) Arterial Blood pH 7.55 (7.35-7.45) 7.44 (7.35-7.45) Arterial Blood pCO2 at Patient Temp 28 mmHg (35-46) 32 mmHg (35-46) Arterial Blood pO2 at Patient Temp 430 mmHg (75-108) 103 mmHg (75-108) Arterial Blood HCO3 24 mmol/L (21-28) 21 mmol/L (21-28) Arterial Blood Base Excess 2 mmol/L (-3-3) -2 mmol/L (-3-3) FiO2 100 40 White Blood Count 13.2 x10^3/uL (4.0-11.0) Red Blood Count 3.96 x10^6/uL (3.50-5.40) Hemoglobin 12.4 g/dL (12.0-15.5) Hematocrit 38.9 % (36.0-47.0) Mean Corpuscular Volume 98 fL (79-100) Mean Corpuscular Hemoglobin 31 pg (25-35) Mean Corpuscular Hemoglobin Concent 32 g/dL (31-37) Red Cell Distribution Width 13.6 % (11.5-14.5) Platelet Count 218 x10^3/uL (140-400) Neutrophils (%) (Auto) 70 % (31-73) Lymphocytes (%) (Auto) 14 % (24-48) Monocytes (%) (Auto) 15 % (0-9) Eosinophils (%) (Auto) 1 % (0-3) Basophils (%) (Auto) 1 % (0-3) Neutrophils # (Auto) 9.2 x10^3uL (1.8-7.7) Lymphocytes # (Auto) 1.8 x10^3/uL (1.0-4.8) Monocytes # (Auto) 2.0 x10^3/uL (0.0-1.1) Eosinophils # (Auto) 0.1 x10^3/uL (0.0-0.7) Basophils # (Auto) 0.1 x10^3/uL (0.0-0.2) Segmented Neutrophils % 69 % (35-66) Lymphocytes % 16 % (24-48) Atypical Lymphocytes % (Manual) 1 % (0-0) Monocytes % 13 % (0-10) Eosinophils % 1 % (0-5) Platelet Estimate Adequate (ADEQUATE) Sodium Level 139 mmol/L (136-145) Potassium Level 3.8 mmol/L (3.5-5.1) Chloride Level 107 mmol/L (98-107) Carbon Dioxide Level 24 mmol/L (21-32) Anion Gap 8 (6-14) Blood Urea Nitrogen 11 mg/dL (7-20) Creatinine 0.6 mg/dL (0.6-1.0) Estimated GFR (Cockcroft-Gault) 124.2 Glucose Level 91 mg/dL (70-99) Calcium Level 9.4 mg/dL (8.5-10.1) Magnesium Level 1.9 mg/dL (1.8-2.4) Glucose (Fingerstick) 93 mg/dL (70-99) MARISSA GUTIERREZ MD Oct 11, 2016 08:41
[2016-10-11] MEDS ORDERED: ENOXAPARIN 40 MG/0.4 ML SYRINGE. SQ SCH (10:00)
--- NOTE | 2016-10-11 10:09 | PDOC ---
PULMONARY PROGRESS NOTES Subjective Patient became apneic and developed hypoxic RF post propofol before EGD 10/10 intubated/sedated Vitals Vital Signs Date Time Temp Pulse Resp B/P (MAP) Pulse Ox O2 Delivery O2 Flow Rate FiO2 10/11/16 09:21 100 Ventilator 10/11/16 06:00 84 14 107/68 (81) 10/11/16 05:00 98.7 98.7 10/10/16 17:17 2.0 General: No acute distress Lungs: Other (decrease bs) Cardiovascular: S1 Abdomen: Soft Extremities: No Edema Skin: Warm Labs Laboratory Tests Test 10/10/16 04:16 10/10/16 12:35 10/11/16 05:00 10/11/16 07:59 Calcium Level 10.9 mg/dL (8.5-10.1) 9.4 mg/dL (8.5-10.1) O2 Saturation 100 % (92-99) Arterial Blood pH 7.55 (7.35-7.45) Arterial Blood pCO2 at Patient Temp 28 mmHg (35-46) Arterial Blood pO2 at Patient Temp 430 mmHg (75-108) Arterial Blood HCO3 24 mmol/L (21-28) Arterial Blood Base Excess 2 mmol/L (-3-3) FiO2 100 White Blood Count 13.2 x10^3/uL (4.0-11.0) Red Blood Count 3.96 x10^6/uL (3.50-5.40) Hemoglobin 12.4 g/dL (12.0-15.5) Hematocrit 38.9 % (36.0-47.0) Mean Corpuscular Volume 98 fL (79-100) Mean Corpuscular Hemoglobin 31 pg (25-35) Mean Corpuscular Hemoglobin Concent 32 g/dL (31-37) Red Cell Distribution Width 13.6 % (11.5-14.5) Platelet Count 218 x10^3/uL (140-400) Neutrophils (%) (Auto) 70 % (31-73) Lymphocytes (%) (Auto) 14 % (24-48) Monocytes (%) (Auto) 15 % (0-9) Eosinophils (%) (Auto) 1 % (0-3) Basophils (%) (Auto) 1 % (0-3) Neutrophils # (Auto) 9.2 x10^3uL (1.8-7.7) Lymphocytes # (Auto) 1.8 x10^3/uL (1.0-4.8) Monocytes # (Auto) 2.0 x10^3/uL (0.0-1.1) Eosinophils # (Auto) 0.1 x10^3/uL (0.0-0.7) Basophils # (Auto) 0.1 x10^3/uL (0.0-0.2) Segmented Neutrophils % 69 % (35-66) Lymphocytes % 16 % (24-48) Atypical Lymphocytes % (Manual) 1 % (0-0) Monocytes % 13 % (0-10) Eosinophils % 1 % (0-5) Platelet Estimate Adequate (ADEQUATE) Sodium Level 139 mmol/L (136-145) Potassium Level 3.8 mmol/L (3.5-5.1) Chloride Level 107 mmol/L (98-107) Carbon Dioxide Level 24 mmol/L (21-32) Anion Gap 8 (6-14) Blood Urea Nitrogen 11 mg/dL (7-20) Creatinine 0.6 mg/dL (0.6-1.0) Estimated GFR (Cockcroft-Gault) 124.2 Glucose Level 91 mg/dL (70-99) Magnesium Level 1.9 mg/dL (1.8-2.4) Glucose (Fingerstick) 93 mg/dL (70-99) Test 10/11/16 08:00 O2 Saturation 98 % (92-99) Arterial Blood pH 7.44 (7.35-7.45) Arterial Blood pCO2 at Patient Temp 32 mmHg (35-46) Arterial Blood pO2 at Patient Temp 103 mmHg (75-108) Arterial Blood HCO3 21 mmol/L (21-28) Arterial Blood Base Excess -2 mmol/L (-3-3) FiO2 40 Laboratory Tests Test 10/10/16 12:35 10/11/16 05:00 10/11/16 07:59 10/11/16 08:00 O2 Saturation 100 % (92-99) 98 % (92-99) Arterial Blood pH 7.55 (7.35-7.45) 7.44 (7.35-7.45) Arterial Blood pCO2 at Patient Temp 28 mmHg (35-46) 32 mmHg (35-46) Arterial Blood pO2 at Patient Temp 430 mmHg (75-108) 103 mmHg (75-108) Arterial Blood HCO3 24 mmol/L (21-28) 21 mmol/L (21-28) Arterial Blood Base Excess 2 mmol/L (-3-3) -2 mmol/L (-3-3) FiO2 100 40 White Blood Count 13.2 x10^3/uL (4.0-11.0) Red Blood Count 3.96 x10^6/uL (3.50-5.40) Hemoglobin 12.4 g/dL (12.0-15.5) Hematocrit 38.9 % (36.0-47.0) Mean Corpuscular Volume 98 fL (79-100) Mean Corpuscular Hemoglobin 31 pg (25-35) Mean Corpuscular Hemoglobin Concent 32 g/dL (31-37) Red Cell Distribution Width 13.6 % (11.5-14.5) Platelet Count 218 x10^3/uL (140-400) Neutrophils (%) (Auto) 70 % (31-73) Lymphocytes (%) (Auto) 14 % (24-48) Monocytes (%) (Auto) 15 % (0-9) Eosinophils (%) (Auto) 1 % (0-3) Basophils (%) (Auto) 1 % (0-3) Neutrophils # (Auto) 9.2 x10^3uL (1.8-7.7) Lymphocytes # (Auto) 1.8 x10^3/uL (1.0-4.8) Monocytes # (Auto) 2.0 x10^3/uL (0.0-1.1) Eosinophils # (Auto) 0.1 x10^3/uL (0.0-0.7) Basophils # (Auto) 0.1 x10^3/uL (0.0-0.2) Segmented Neutrophils % 69 % (35-66) Lymphocytes % 16 % (24-48) Atypical Lymphocytes % (Manual) 1 % (0-0) Monocytes % 13 % (0-10) Eosinophils % 1 % (0-5) Platelet Estimate Adequate (ADEQUATE) Sodium Level 139 mmol/L (136-145) Potassium Level 3.8 mmol/L (3.5-5.1) Chloride Level 107 mmol/L (98-107) Carbon Dioxide Level 24 mmol/L (21-32) Anion Gap 8 (6-14) Blood Urea Nitrogen 11 mg/dL (7-20) Creatinine 0.6 mg/dL (0.6-1.0) Estimated GFR (Cockcroft-Gault) 124.2 Glucose Level 91 mg/dL (70-99) Calcium Level 9.4 mg/dL (8.5-10.1) Magnesium Level 1.9 mg/dL (1.8-2.4) Glucose (Fingerstick) 93 mg/dL (70-99) Medications Active Scripts Medications Dose Route/Sig Max Daily Dose Days Date Category No Active Prescriptions or Reported Medications Rx Impression . 1.Acute RF post propofol prior to EGD 2.Esophageal mass, s/p biopsy/ obstructing esophageal neoplasm 3.Large left sided effusion in a smoker with weight loss, suspect malignancy, cytology negative. 4. Abnormal ct chest with esophageal mass, left pleural mets Doubt infectious etiology of left effusion 2.Suspect hypercalcemia of malignancy Plan . AC mode no further esophageal bleeding wean sedation off, once awake, CPAP trial follow CXR stable post intubation Oncology consult s/p ct guided left thoracentesis 10/08. 1600 cc removed Neg cytology, still suspect malignant Poor prognosis./ no resources to get out patient treatment of cancer DARIELA العلي MD Oct 11, 2016 10:09
[2016-10-11] MEDS: IV NORMAL SALINE 1000ML BAG 1,000 ML IV SCH ×3 (11:04→19:57)
[2016-10-11] MEDS: MORPHINE SULFATE 2 MG/ML DISP.SYRIN. IV PRN (11:14)
--- NOTE | 2016-10-11 14:34 | PDOC ---
Subjective: Subjective: extubated and confused Objective: Vital Signs: Vital Signs Date Time Temp Pulse Resp B/P (MAP) Pulse Ox O2 Delivery O2 Flow Rate FiO2 10/11/16 12:00 Mechanical Ventilator 3.0 10/11/16 11:54 99 10/11/16 11:45 30 10/11/16 11:00 116 156/102 (120) 10/11/16 08:00 98.4 98.4 Labs: Laboratory Tests Test 10/11/16 05:00 10/11/16 07:59 10/11/16 08:00 White Blood Count 13.2 x10^3/uL (4.0-11.0) Red Blood Count 3.96 x10^6/uL (3.50-5.40) Hemoglobin 12.4 g/dL (12.0-15.5) Hematocrit 38.9 % (36.0-47.0) Mean Corpuscular Volume 98 fL (79-100) Mean Corpuscular Hemoglobin 31 pg (25-35) Mean Corpuscular Hemoglobin Concent 32 g/dL (31-37) Red Cell Distribution Width 13.6 % (11.5-14.5) Platelet Count 218 x10^3/uL (140-400) Neutrophils (%) (Auto) 70 % (31-73) Lymphocytes (%) (Auto) 14 % (24-48) Monocytes (%) (Auto) 15 % (0-9) Eosinophils (%) (Auto) 1 % (0-3) Basophils (%) (Auto) 1 % (0-3) Neutrophils # (Auto) 9.2 x10^3uL (1.8-7.7) Lymphocytes # (Auto) 1.8 x10^3/uL (1.0-4.8) Monocytes # (Auto) 2.0 x10^3/uL (0.0-1.1) Eosinophils # (Auto) 0.1 x10^3/uL (0.0-0.7) Basophils # (Auto) 0.1 x10^3/uL (0.0-0.2) Segmented Neutrophils % 69 % (35-66) Lymphocytes % 16 % (24-48) Atypical Lymphocytes % (Manual) 1 % (0-0) Monocytes % 13 % (0-10) Eosinophils % 1 % (0-5) Platelet Estimate Adequate (ADEQUATE) Sodium Level 139 mmol/L (136-145) Potassium Level 3.8 mmol/L (3.5-5.1) Chloride Level 107 mmol/L (98-107) Carbon Dioxide Level 24 mmol/L (21-32) Anion Gap 8 (6-14) Blood Urea Nitrogen 11 mg/dL (7-20) Creatinine 0.6 mg/dL (0.6-1.0) Estimated GFR (Cockcroft-Gault) 124.2 Glucose Level 91 mg/dL (70-99) Calcium Level 9.4 mg/dL (8.5-10.1) Magnesium Level 1.9 mg/dL (1.8-2.4) Glucose (Fingerstick) 93 mg/dL (70-99) O2 Saturation 98 % (92-99) Arterial Blood pH 7.44 (7.35-7.45) Arterial Blood pCO2 at Patient Temp 32 mmHg (35-46) Arterial Blood pO2 at Patient Temp 103 mmHg (75-108) Arterial Blood HCO3 21 mmol/L (21-28) Arterial Blood Base Excess -2 mmol/L (-3-3) FiO2 40 Physical Exam: Physical Exam: HEENT: OP clear CV: S1S2 without murmurs, rubs, or gallops RESP: dec anteriorly ABD: distention Assessment & Plan: Assessment : Esophageal mass Plan: Await path. D/w son and daughter in law. Answered questions. propeck returns Thursday Problems: HUI MCLEOD MD Oct 11, 2016 14:34
[2016-10-11] MEDS ORDERED: RACEPINEPHRINE 2.25% 0.5 ML NEBU. NEB ONE (15:30)
[2016-10-11] MEDS: methylPREDNISolone SOD SUCC PF 125 MG/2 ML VIAL. IV SCH (15:39)
[2016-10-11] MEDS: FAMOTIDINE 20 MG/2 ML VIAL IVP SCH (21:46)
[2016-10-12] VITALS (24 sets, daily range): BP systolic 110–166; BP diastolic 71–95
[2016-10-12] MEDS: methylPREDNISolone SOD SUCC PF 125 MG/2 ML VIAL. IV SCH ×4 (00:43→17:08)
[2016-10-12] MEDS: AMINO AC 3%/ELECTROLYTE/GLYCER 1,000 ML IV SCH ×2 (03:21→16:32)
[2016-10-12] MEDS: IV NORMAL SALINE 1000ML BAG 1,000 ML IV SCH ×3 (03:24→21:00)
[2016-10-12] MEDS: MORPHINE SULFATE 2 MG/ML DISP.SYRIN. IV PRN ×4 (03:26→21:02)
--- NOTE | 2016-10-12 07:18 | PDOC ---
PROGRESS NOTES Chief Complaint Chief Complaint SOB ASSESSMENT AND PLAN: 1. Pleural effusion: suspected malignant, despite neg cytology on pleurocentesis on 10/08. anticipate recurrence 2. Esophageal mass: s/p EGD on 10/10 with bx; poss bronch fistula. awaiting path report 3. pulm nodules: c/w metastatic disease, making her stage 4. appreciate Dr Eric's input. palliative care involved 4. Hypercalcemia: paraneoplastic syndrome, often assoc with squamous cell CA. currently WNL; Vit D low; do not replete 5. Respir arrest at EGD: extubated successfully yesterday. started on solumedrol for stridor post extubation 6. SIRS: likely 2/2 viral URI (vs aspir with fistula). resolving 7. Leukocytosis: reactive after yesterday's events; improving 8.. Nutrition: keep NPO for now 2/2 intubation and esophageal mass. may need speech eval 8. Hypomagnesemia: resolved 9. CHF: diastolic by echo during current admit. mild 10. abn TSH: minimally elevated, but with normal T4. on intervention indicated 11. Tobaccoism 12. Prophylaxis: PPI Prognosis: poor. Condition: stable pt is uninsured, family w/o resources. History of Present Illness History of Present Illness feeling ok, daughter visiting. no respir difficulties, no hematemesis Vitals Vitals Vital Signs Date Time Temp Pulse Resp B/P (MAP) Pulse Ox O2 Delivery O2 Flow Rate FiO2 10/12/16 06:00 70 20 148/83 (104) 95 Nasal Cannula 3.0 10/12/16 03:00 97.8 97.8 Physical Exam General: Alert, Cooperative, No acute distress Heart: Regular rate Lungs: Clear Abdomen: Normal bowel sounds, No masses Extremities: No clubbing, No edema Skin: No rashes MARISSA GUTIERREZ MD Oct 12, 2016 07:18
--- NOTE | 2016-10-12 07:45 | RAD ---
Portable chest, 10/12/2016: History: Respiratory failure Comparison is made to yesterday's study. The ET tube has been removed. The heart is at the upper limits of normal in size. There are extensive left chest opacities which appear to have worsened slightly. The findings are again compatible with a combination of pleural fluid, pleural thickening and underlying atelectasis/infiltrate. No right lung infiltrate is evident. The pulmonary vascularity as visualized on the right is within normal limits. IMPRESSION: Slight interval worsening of the extensive left chest pleural-parenchymal opacities.
[2016-10-12] MEDS: IPRATRPIUM/ALBUTEROL 0.5/2.5MG 3 ML NEBU. NEB SCH ×4 (07:57→19:50)
[2016-10-12 09:15] LABS: BASO % 0 % (0-3); EOS % 0 % (0-3); HEMATOCRIT 38.2 % (36.0-47.0); LYMPH # 0.7 x10^3/uL (1.0-4.8); LYMPH % 6 % (24-48); MEAN CORPUSCULAR HEMOGLOBIN 32 pg (25-35); MEAN CORPUSCULAR HGB CONC 34 g/dL (31-37); MEAN CORPUSCULAR VOLUME 94 fL (79-100); MONO % 2 % (0-9); NEUT % 92 % (31-73); PLATELET COUNT 273 x10^3/uL (140-400); RED BLOOD COUNT 4.06 x10^6/uL (3.50-5.40); RED CELL DISTRIBUTION WIDTH 13.5 % (11.5-14.5); WHITE BLOOD COUNT 11.9 x10^3/uL (4.0-11.0)
[2016-10-12 09:28] LABS: CALCIUM 8.8 mg/dL (8.5-10.1); CREATININE 0.5 mg/dL (0.6-1.0); GFR 153.3; POTASSIUM 3.7 mmol/L (3.5-5.1)
--- NOTE | 2016-10-12 09:55 | PDOC ---
PULMONARY PROGRESS NOTES Subjective Patient became apneic and developed hypoxic RF post propofol before EGD 10/10 Extubated 10/11, developed some stridor post extubation, improved now Vitals Vital Signs Date Time Temp Pulse Resp B/P (MAP) Pulse Ox O2 Delivery O2 Flow Rate FiO2 10/12/16 07:59 99 Nasal Cannula 3.0 10/12/16 06:00 70 20 148/83 (104) 10/12/16 03:00 97.8 97.8 General: Alert, No acute distress Lungs: Other (decrease bs left base) Cardiovascular: S1 Abdomen: Soft Neuro Exam: Alert Extremities: No Edema Skin: Warm Labs Laboratory Tests Test 10/10/16 12:35 10/10/16 20:15 10/11/16 05:00 10/11/16 07:59 O2 Saturation 100 % (92-99) Arterial Blood pH 7.55 (7.35-7.45) Arterial Blood pCO2 at Patient Temp 28 mmHg (35-46) Arterial Blood pO2 at Patient Temp 430 mmHg (75-108) Arterial Blood HCO3 24 mmol/L (21-28) Arterial Blood Base Excess 2 mmol/L (-3-3) FiO2 100 Nasal Screen MRSA (PCR) Negative (Negative) White Blood Count 13.2 x10^3/uL (4.0-11.0) Red Blood Count 3.96 x10^6/uL (3.50-5.40) Hemoglobin 12.4 g/dL (12.0-15.5) Hematocrit 38.9 % (36.0-47.0) Mean Corpuscular Volume 98 fL (79-100) Mean Corpuscular Hemoglobin 31 pg (25-35) Mean Corpuscular Hemoglobin Concent 32 g/dL (31-37) Red Cell Distribution Width 13.6 % (11.5-14.5) Platelet Count 218 x10^3/uL (140-400) Neutrophils (%) (Auto) 70 % (31-73) Lymphocytes (%) (Auto) 14 % (24-48) Monocytes (%) (Auto) 15 % (0-9) Eosinophils (%) (Auto) 1 % (0-3) Basophils (%) (Auto) 1 % (0-3) Neutrophils # (Auto) 9.2 x10^3uL (1.8-7.7) Lymphocytes # (Auto) 1.8 x10^3/uL (1.0-4.8) Monocytes # (Auto) 2.0 x10^3/uL (0.0-1.1) Eosinophils # (Auto) 0.1 x10^3/uL (0.0-0.7) Basophils # (Auto) 0.1 x10^3/uL (0.0-0.2) Segmented Neutrophils % 69 % (35-66) Lymphocytes % 16 % (24-48) Atypical Lymphocytes % (Manual) 1 % (0-0) Monocytes % 13 % (0-10) Eosinophils % 1 % (0-5) Platelet Estimate Adequate (ADEQUATE) Sodium Level 139 mmol/L (136-145) Potassium Level 3.8 mmol/L (3.5-5.1) Chloride Level 107 mmol/L (98-107) Carbon Dioxide Level 24 mmol/L (21-32) Anion Gap 8 (6-14) Blood Urea Nitrogen 11 mg/dL (7-20) Creatinine 0.6 mg/dL (0.6-1.0) Estimated GFR (Cockcroft-Gault) 124.2 Glucose Level 91 mg/dL (70-99) Calcium Level 9.4 mg/dL (8.5-10.1) Magnesium Level 1.9 mg/dL (1.8-2.4) Glucose (Fingerstick) 93 mg/dL (70-99) Test 10/11/16 08:00 10/12/16 08:51 O2 Saturation 98 % (92-99) Arterial Blood pH 7.44 (7.35-7.45) Arterial Blood pCO2 at Patient Temp 32 mmHg (35-46) Arterial Blood pO2 at Patient Temp 103 mmHg (75-108) Arterial Blood HCO3 21 mmol/L (21-28) Arterial Blood Base Excess -2 mmol/L (-3-3) FiO2 40 White Blood Count 11.9 x10^3/uL (4.0-11.0) Red Blood Count 4.06 x10^6/uL (3.50-5.40) Hemoglobin 13.0 g/dL (12.0-15.5) Hematocrit 38.2 % (36.0-47.0) Mean Corpuscular Volume 94 fL (79-100) Mean Corpuscular Hemoglobin 32 pg (25-35) Mean Corpuscular Hemoglobin Concent 34 g/dL (31-37) Red Cell Distribution Width 13.5 % (11.5-14.5) Platelet Count 273 x10^3/uL (140-400) Neutrophils (%) (Auto) 92 % (31-73) Lymphocytes (%) (Auto) 6 % (24-48) Monocytes (%) (Auto) 2 % (0-9) Eosinophils (%) (Auto) 0 % (0-3) Basophils (%) (Auto) 0 % (0-3) Neutrophils # (Auto) 10.9 x10^3uL (1.8-7.7) Lymphocytes # (Auto) 0.7 x10^3/uL (1.0-4.8) Monocytes # (Auto) 0.3 x10^3/uL (0.0-1.1) Eosinophils # (Auto) 0.0 x10^3/uL (0.0-0.7) Basophils # (Auto) 0.0 x10^3/uL (0.0-0.2) Sodium Level 142 mmol/L (136-145) Potassium Level 3.7 mmol/L (3.5-5.1) Chloride Level 107 mmol/L (98-107) Carbon Dioxide Level 27 mmol/L (21-32) Anion Gap 8 (6-14) Blood Urea Nitrogen 9 mg/dL (7-20) Creatinine 0.5 mg/dL (0.6-1.0) Estimated GFR (Cockcroft-Gault) 153.3 Glucose Level 159 mg/dL (70-99) Calcium Level 8.8 mg/dL (8.5-10.1) Laboratory Tests Test 10/12/16 08:51 White Blood Count 11.9 x10^3/uL (4.0-11.0) Red Blood Count 4.06 x10^6/uL (3.50-5.40) Hemoglobin 13.0 g/dL (12.0-15.5) Hematocrit 38.2 % (36.0-47.0) Mean Corpuscular Volume 94 fL (79-100) Mean Corpuscular Hemoglobin 32 pg (25-35) Mean Corpuscular Hemoglobin Concent 34 g/dL (31-37) Red Cell Distribution Width 13.5 % (11.5-14.5) Platelet Count 273 x10^3/uL (140-400) Neutrophils (%) (Auto) 92 % (31-73) Lymphocytes (%) (Auto) 6 % (24-48) Monocytes (%) (Auto) 2 % (0-9) Eosinophils (%) (Auto) 0 % (0-3) Basophils (%) (Auto) 0 % (0-3) Neutrophils # (Auto) 10.9 x10^3uL (1.8-7.7) Lymphocytes # (Auto) 0.7 x10^3/uL (1.0-4.8) Monocytes # (Auto) 0.3 x10^3/uL (0.0-1.1) Eosinophils # (Auto) 0.0 x10^3/uL (0.0-0.7) Basophils # (Auto) 0.0 x10^3/uL (0.0-0.2) Sodium Level 142 mmol/L (136-145) Potassium Level 3.7 mmol/L (3.5-5.1) Chloride Level 107 mmol/L (98-107) Carbon Dioxide Level 27 mmol/L (21-32) Anion Gap 8 (6-14) Blood Urea Nitrogen 9 mg/dL (7-20) Creatinine 0.5 mg/dL (0.6-1.0) Estimated GFR (Cockcroft-Gault) 153.3 Glucose Level 159 mg/dL (70-99) Calcium Level 8.8 mg/dL (8.5-10.1) Medications Active Scripts Medications Dose Route/Sig Max Daily Dose Days Date Category No Active Prescriptions or Reported Medications Rx Impression . 1.Acute RF post propofol prior to EGD, extubated 10/11 2.Esophageal mass, s/p biopsy/ high grade obstructing esophageal neoplasm 3.Large left sided effusion in a smoker with weight loss, suspect malignancy, cytology negative. now some re-accumulation 4. Abnormal ct chest with esophageal mass, left pleural mets Doubt infectious etiology of left effusion 5.Suspect hypercalcemia of malignancy 6. Post extubation stridor, resolved with epi/ steroids 7. Dysphagia Plan . Nasal canula Await esophageal mass biopsy result follow CXR and monitor for further increase in effusion. May need palliative pleurX catheter Oncology consult s/p ct guided left thoracentesis 6/28. 1600 cc removed Neg cytology, still suspect malignant effusion Keep NPO Will need PEG Poor prognosis./ no resources to get out patient treatment of cancer DARIELA العلي MD Oct 12, 2016 09:55
[2016-10-12] MEDS: FAMOTIDINE 20 MG/2 ML VIAL IVP SCH (21:00)
[2016-10-13] VITALS (17 sets, daily range): BP systolic 130–177; BP diastolic 74–103
[2016-10-13] MEDS: methylPREDNISolone SOD SUCC PF 125 MG/2 ML VIAL. IV SCH ×5 (00:05→23:25)
[2016-10-13] MEDS: AMINO AC 3%/ELECTROLYTE/GLYCER 1,000 ML IV SCH ×2 (04:05→19:39)
[2016-10-13] MEDS: IV NORMAL SALINE 1000ML BAG 1,000 ML IV SCH ×2 (04:48→13:00)
[2016-10-13] MEDS: IPRATRPIUM/ALBUTEROL 0.5/2.5MG 3 ML NEBU. NEB SCH ×4 (07:44→19:34)
[2016-10-13] MEDS: MORPHINE SULFATE 2 MG/ML DISP.SYRIN. IV PRN ×3 (07:52→19:39)
--- NOTE | 2016-10-13 09:10 | RAD ---
Portable chest, 10/13/2016: History: Respiratory failure Comparison is made to yesterday's exam. There is ongoing pleural thickening on the left with dense left lower chest opacities compatible with pleural fluid and underlying atelectasis/infiltrate. The findings are unchanged. The right lung remains clear. The heart is at the upper limits of normal in size. The pulmonary vascularity is within normal limits. IMPRESSION: No significant change since yesterday's study.
--- NOTE | 2016-10-13 09:55 | PDOC ---
Subjective: Subjective: Onc f/u- Esophageal mass, pleural effusion Path pending Pt extubated over the weekend, very overwhelmed Met w/ pall care this AM, discussing code status, overall poor understanding of disease Not sure she wants PEG No SOB, chest pain currently Objective: Vital Signs: Vital Signs Date Time Temp Pulse Resp B/P (MAP) Pulse Ox O2 Delivery O2 Flow Rate FiO2 10/13/16 09:00 98 14 160/98 (118) 96 Nasal Cannula 3.0 10/13/16 08:00 97.5 97.5 Physical Exam: Extremities: No edema General: Alert, Oriented X3, Cooperative, No acute distress Lungs: Other (no respiratory distress) Psych/Mental Status: Mental status NL, Mood NL Labs/Imaging: Path pending CXR- Left opacities redeveloping Assessment/Plan A/P: 1. Esophageal mass with left pleural effusion, redeveloping after thoracentesis 10/08. - Path from EGD 10/10 pending. 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 Family mtgs in progress. Overall very overwhelmed with poor understanding of her disease. - Palliative chemo only option if malignant, would bring great toxicity with low expected benefit in stage IV disease with no means to offer currently due to insurance status - Recommend hospice, life expectancy if advanced malignancy is likely weeks to months. - Consider pleurX placement pending redevelopment of effusion; pt unsure she wants PEG. D/W with Pat from Palliative care. Dr. Houston is covering tomorrow if urgent needs arise. I will return Wed. KRISTIE WILLIS DO Oct 13, 2016 09:55
--- NOTE | 2016-10-13 12:34 | PDOC ---
PULMONARY PROGRESS NOTES Subjective pt not more soa Vitals Vital Signs Date Time Temp Pulse Resp B/P (MAP) Pulse Ox O2 Delivery O2 Flow Rate FiO2 10/13/16 12:25 Nasal Cannula 2.0 10/13/16 11:00 77 18 173/102 (125) 96 10/13/16 08:00 97.5 97.5 ROS: No Nausea, No Chest Pain, No Abdominal Pain, No Increase Cough General: Alert, No acute distress Lungs: Other (decrease bs left base) Cardiovascular: S1 Abdomen: Soft Neuro Exam: Alert Extremities: No Edema Skin: Warm Labs Laboratory Tests Test 10/12/16 08:51 White Blood Count 11.9 x10^3/uL (4.0-11.0) Red Blood Count 4.06 x10^6/uL (3.50-5.40) Hemoglobin 13.0 g/dL (12.0-15.5) Hematocrit 38.2 % (36.0-47.0) Mean Corpuscular Volume 94 fL (79-100) Mean Corpuscular Hemoglobin 32 pg (25-35) Mean Corpuscular Hemoglobin Concent 34 g/dL (31-37) Red Cell Distribution Width 13.5 % (11.5-14.5) Platelet Count 273 x10^3/uL (140-400) Neutrophils (%) (Auto) 92 % (31-73) Lymphocytes (%) (Auto) 6 % (24-48) Monocytes (%) (Auto) 2 % (0-9) Eosinophils (%) (Auto) 0 % (0-3) Basophils (%) (Auto) 0 % (0-3) Neutrophils # (Auto) 10.9 x10^3uL (1.8-7.7) Lymphocytes # (Auto) 0.7 x10^3/uL (1.0-4.8) Monocytes # (Auto) 0.3 x10^3/uL (0.0-1.1) Eosinophils # (Auto) 0.0 x10^3/uL (0.0-0.7) Basophils # (Auto) 0.0 x10^3/uL (0.0-0.2) Sodium Level 142 mmol/L (136-145) Potassium Level 3.7 mmol/L (3.5-5.1) Chloride Level 107 mmol/L (98-107) Carbon Dioxide Level 27 mmol/L (21-32) Anion Gap 8 (6-14) Blood Urea Nitrogen 9 mg/dL (7-20) Creatinine 0.5 mg/dL (0.6-1.0) Estimated GFR (Cockcroft-Gault) 153.3 Glucose Level 159 mg/dL (70-99) Calcium Level 8.8 mg/dL (8.5-10.1) Medications Active Scripts Medications Dose Route/Sig Max Daily Dose Days Date Category No Active Prescriptions or Reported Medications Rx Comments no change on cxr Impression . 1.Acute RF post propofol prior to EGD, extubated 10/11 2.Esophageal mass, s/p biopsy/ high grade obstructing esophageal neoplasm 3.Large left sided effusion in a smoker with weight loss, suspect malignancy, cytology negative. now some re-accumulation 4. Abnormal ct chest with esophageal mass, left pleural mets 5.Suspect hypercalcemia of malignancy 6. Post extubation stridor, resolved with epi/ steroids 7. Dysphagia Plan . monitor for increase soa d/c gibson transfer to floor Nasal canula Await esophageal mass biopsy result follow onco input s/p ct guided left thoracentesis 10/08. 1600 cc removed Neg cytology, still suspect malignant effusion nutrition per Gi Will need PEG SARAH SÁNCHEZ MD Oct 13, 2016 12:34
--- NOTE | 2016-10-13 13:07 | PDOC ---
G I PROGRESS NOTE Reason for Follow-up Abnl CT scan/esophageal mass Subjective Doesn't wish to have feeding tube Physical Exam Lungs clear CV S1 S2 ABD +BS, soft, nontender Review of Relevant I have reviewed the following items fausto (where applicable) has been applied. Labs Laboratory Tests Test 10/12/16 08:51 White Blood Count 11.9 x10^3/uL (4.0-11.0) Red Blood Count 4.06 x10^6/uL (3.50-5.40) Hemoglobin 13.0 g/dL (12.0-15.5) Hematocrit 38.2 % (36.0-47.0) Mean Corpuscular Volume 94 fL (79-100) Mean Corpuscular Hemoglobin 32 pg (25-35) Mean Corpuscular Hemoglobin Concent 34 g/dL (31-37) Red Cell Distribution Width 13.5 % (11.5-14.5) Platelet Count 273 x10^3/uL (140-400) Neutrophils (%) (Auto) 92 % (31-73) Lymphocytes (%) (Auto) 6 % (24-48) Monocytes (%) (Auto) 2 % (0-9) Eosinophils (%) (Auto) 0 % (0-3) Basophils (%) (Auto) 0 % (0-3) Neutrophils # (Auto) 10.9 x10^3uL (1.8-7.7) Lymphocytes # (Auto) 0.7 x10^3/uL (1.0-4.8) Monocytes # (Auto) 0.3 x10^3/uL (0.0-1.1) Eosinophils # (Auto) 0.0 x10^3/uL (0.0-0.7) Basophils # (Auto) 0.0 x10^3/uL (0.0-0.2) Sodium Level 142 mmol/L (136-145) Potassium Level 3.7 mmol/L (3.5-5.1) Chloride Level 107 mmol/L (98-107) Carbon Dioxide Level 27 mmol/L (21-32) Anion Gap 8 (6-14) Blood Urea Nitrogen 9 mg/dL (7-20) Creatinine 0.5 mg/dL (0.6-1.0) Estimated GFR (Cockcroft-Gault) 153.3 Glucose Level 159 mg/dL (70-99) Calcium Level 8.8 mg/dL (8.5-10.1) Microbiology 10/08/16 Gram Stain - Final, Complete 10/07/16 Urine Culture - Final, Complete 10/07/16 Urine Culture Result 1 (PERI) - Final, Complete Medications Current Medications Albuterol/ Ipratropium (Duoneb) 3 ml 1X ONCE NEB Last administered on 14:01; Start 10/07/16 at 13:30; Stop 10/07/16 at 13:31; Status DC Acetaminophen (Tylenol) 650 mg PRN Q6HRS PRN PO FEVER; Start 10/07/16 at 15:45 Ondansetron HCl (Zofran) 4 mg PRN Q6HRS PRN IV NAUSEA/VOMITING Last administered on 10/13/16 07:52; Start 10/07/16 at 15:45 Morphine Sulfate 2 mg PRN Q2HR PRN IV PAIN Last administered on 10/13/16 07:52 ; Start 10/07/16 at 15:45 Tramadol HCl (Ultram) 50 mg PRN Q6HRS PRN PO PAIN Last administered on 20:58; Start 10/07/16 at 15:45 Hydralazine HCl (Apresoline) 10 mg PRN Q4HRS PRN IVP ELEVATED BP, SEE COMMENTS ; Start 10/07/16 at 15:45 Docusate Sodium (Colace) 100 mg PRN DAILY PRN PO CONSTIPATION; Start 10/07/16 at 15:45 Albuterol/ Ipratropium (Duoneb) 3 ml RTQID NEB Last administered on 10/13/16 12 :22; Start 10/07/16 at 16:00 Albuterol Sulfate (Ventolin Neb Soln) 2.5 mg PRN Q2HR PRN NEB SHORTNESS OF BREATH; Start 10/07/16 at 15:45 Guaifenesin (Mucinex) 600 mg BID PO Last administered on 10/09/16 20:58; Start 10/07/16 at 21:00; Stop 10/13/16 at 11:49; Status DC Nicotine (Nicoderm Cq 7mg) 1 patch PRN DAILY PRN TD SMOKING CESSATION; Start at 15:45 Heparin Sodium (Porcine) (Heparin Sq) 5,000 unit Q8HRS SQ Last administered on 10/07/16 21:17; Start 10/07/16 at 22:00; Stop 10/07/16 at 23:07; Status DC Throat Lozenges (Cepacol Sore Throat Lozenge) 1 moises PRN Q2HRS PRN PO SORE THROAT Last administered on 10/08/16 20:40; Start 10/07/16 at 15:45 Magnesium Sulfate/ Dextrose 50 ml @ 25 mls/hr 1X ONCE IV Last administered on 10/07/16 16:03; Start 10/07/16 at 15:45; Stop 10/07/16 at 17:44; Status DC Lidocaine/Sodium Bicarbonate (Buffered Lidocaine 1%) 20 ml STK-MED ONCE IJ ; Start 10/08/16 at 12:39; Stop 10/08/16 at 12:40; Status DC Midazolam HCl (Versed) 5 mg STK-MED ONCE .ROUTE ; Start 10/08/16 at 13:05; Stop 10/08/16 at 13:06; Status DC Fentanyl Citrate (Fentanyl 5ml Vial) 250 mcg STK-MED ONCE .ROUTE ; Start at 13:05; Stop 10/08/16 at 13:06; Status DC Lidocaine/Sodium Bicarbonate (Buffered Lidocaine 1%) 9 ml 1X ONCE IJ Last administered on 10/08/16 13:41; Start 10/08/16 at 13:30; Stop 10/08/16 at 13:32 ; Status DC Midazolam HCl (Versed) 1 mg 1X ONCE IV Last administered on 10/08/16 13:42; Start 10/08/16 at 13:30; Stop 10/08/16 at 13:32; Status DC Fentanyl Citrate (Fentanyl 5ml Vial) 50 mcg 1X ONCE IV Last administered on 13:42; Start 10/08/16 at 13:30; Stop 10/08/16 at 13:32; Status DC Iohexol (Omnipaque 300 Mg/ml) 75 ml 1X ONCE IV Last administered on 10/09/16 11:58; Start 10/09/16 at 11:45; Stop 10/09/16 at 11:46; Status DC Info (Do NOT chart on this entry -- for MONITORING) 1 each PRN DAILY PRN MC SEE COMMENTS; Start 10/09/16 at 11:45; Stop 10/11/16 at 11:44; Status DC Diphenhydramine HCl (Benadryl) 50 mg 1X ONCE IVP Last administered on t 18:24; Start 10/09/16 at 18:15; Stop 10/09/16 at 18:16; Status DC Methylprednisolone Sodium Succinate (SOLU-Medrol 40MG VIAL) 40 mg 1X ONCE IV Last administered on 10/09/16t 18:24; Start 10/09/16 at 18:15; Stop 10/09/16 at 18:16; Status DC Midazolam HCl (Versed) 2 mg PRN 1X PRN IV PRIOR TO PROCEDURE; Start 10/10/16 at 09:45; Stop 10/11/16 at 09:44; Status DC Fentanyl Citrate (Fentanyl 2ml Vial) 25 mcg PRN Q5MIN PRN IV X 2 DOSES FOR PAIN ; Start 10/10/16 at 09:45; Stop 10/11/16 at 09:44; Status DC Fentanyl Citrate (Fentanyl 2ml Vial) 50 mcg PRN Q5MIN PRN IV X 2 DOSES FOR PAIN ; Start 10/10/16 at 09:45; Stop 10/11/16 at 09:44; Status DC Ringer's Solution 1,000 ml @ 125 mls/hr Q8H IV ; Start 10/10/16 at 09:43; Stop 10/10/16 at 21:42; Status DC Lidocaine HCl 2 ml 1X PRN PRN ID IV START; Start 10/10/16 at 09:45; Stop at 09:44; Status DC Propofol 40 ml @ As Directed STK-MED ONCE IV ; Start 10/10/16 at 10:44; Stop at 10:45; Status DC Lidocaine HCl (Lidocaine Pf 2% Vial) 5 ml STK-MED ONCE .ROUTE ; Start 10/10/16 at 10:44; Stop 10/10/16 at 10:45; Status DC Propofol 100 ml @ As Directed STK-MED ONCE IV ; Start 10/10/16 at 11:42; Stop 10/10/16 at 11:43; Status DC Midazolam HCl 100 ml @ As Directed STK-MED ONCE IV ; Start 10/10/16 at 12:17; Stop 10/10/16 at 12:18; Status DC Enoxaparin Sodium (Lovenox 40mg Syringe) 40 mg Q24H SQ ; Start 10/11/16 at 10:00 ; Stop 10/11/16 at 10:00; Status DC Famotidine (Pepcid) 20 mg QHS IVP Last administered on 10/12/16 21:00; Start at 21:00 Amino Acids/ Glycerin/ Electrolytes 1,000 ml @ 80 mls/hr [id number] IV Last administered on 10/13/16 04:05; Start 10/10/16 at 14:00 Midazolam HCl 100 ml @ As Directed STK-MED ONCE IV ; Start 10/10/16 at 16:07; Stop 10/10/16 at 16:08; Status DC Fentanyl Citrate 30 ml @ 0 mls/hr CONT PRN PRN IV PROTOCOL Last administered on 10/11/16 03:36; Start 10/10/16 at 16:30 Midazolam HCl 100 ml @ 0 mls/hr CONT PRN IV SEE I/O RECORD Last administered on 10/11/16 03:35; Start 10/10/16 at 16:30 Pamidronate Disodium 90 mg/ Sodium Chloride 250 ml @ 83.333 mls/ hr 1X ONCE IV Last administered on 10/10/16 17:29; Start 10/10/16 at 17:00; Stop at 19:59; Status DC Sodium Chloride 1,000 ml @ 125 mls/hr Q8H IV Last administered on 10/13/16 04: 48; Start 10/10/16 at 21:00 Epinephrine (S2 Racepinephrine) 0.5 ml 1X ONCE NEB Last administered on 07:55; Start 10/11/16 at 15:30; Stop 10/11/16 at 15:31; Status DC Lorazepam (Ativan) 0.5 mg PRN Q6HRS PRN IV ANXIETY / AGITATION Last administered on 10/11/16 15:39; Start 10/11/16 at 15:30 Lorazepam (Ativan) 0.25 mg PRN Q6HRS PRN IV ANXIETY / AGITATION; Start 10/11/16 at 15:30 Methylprednisolone Sodium Succinate (SOLU-Medrol 125MG VIAL) 60 mg Q6HRS IV Last administered on 10/13/16t 12:54; Start 10/11/16 at 15:30 Active Scripts Active No Active Prescriptions or Reported Medications Vitals/I & O Vital Sign - Last 24 Hours 10/12/16 10/12/16 10/12/16 10/12/16 14:00 15:00 15:18 16:00 Temp 97.5 97.5 Pulse 82 76 78 Resp 21 17 26 22 B/P (MAP) 141/91 (108) 153/93 (113) 157/95 (115) Pulse Ox 95 96 95 98 O2 Delivery Nasal Cannula Nasal Cannula Nasal Cannula Nasal Cannula O2 Flow Rate 3.0 3.0 3.0 3.0 10/12/16 10/12/16 10/12/16 10/12/16 16:00 16:00 17:00 18:00 Pulse 82 90 Resp 18 20 B/P (MAP) 147/83 (104) 166/95 (118) Pulse Ox 96 94 93 O2 Delivery Nasal Cannula Nasal Cannula Nasal Cannula Nasal Cannula O2 Flow Rate 3.0 3.0 3.0 3.0 10/12/16 10/12/16 10/12/16 10/12/16 19:00 19:51 20:00 20:20 Temp 97.7 97.7 Pulse 84 84 Resp 30 21 B/P (MAP) 158/95 (116) 158/93 (114) Pulse Ox 95 96 96 O2 Delivery Nasal Cannula Nasal Cannula Nasal Cannula Nasal Cannula O2 Flow Rate 3.0 3.0 3.0 3.0 10/12/16 10/12/16 10/12/16 10/12/16 21:00 21:02 21:35 22:00 Pulse 92 79 Resp 26 22 22 B/P (MAP) 159/91 (113) 151/93 (112) Pulse Ox 92 96 96 97 O2 Delivery Nasal Cannula Nasal Cannula Nasal Cannula O2 Flow Rate 3.0 3.0 3.0 10/12/16 10/13/16 10/13/16 10/13/16 23:00 00:01 00:01 01:00 Temp 97.5 97.5 Pulse 80 74 82 Resp 18 20 24 B/P (MAP) 155/95 (115) 154/92 (112) 177/99 (125) Pulse Ox 97 96 97 O2 Delivery Nasal Cannula Nasal Cannula Nasal Cannula Nasal Cannula O2 Flow Rate 3.0 3.0 3.0 3.0 10/13/16 10/13/16 10/13/16 10/13/16 02:00 03:00 04:00 04:00 Temp 97.9 97.9 Pulse 75 76 72 Resp 20 22 20 B/P (MAP) 161/94 (116) 163/96 (118) 170/97 (121) Pulse Ox 97 95 97 O2 Delivery Nasal Cannula Nasal Cannula Nasal Cannula Nasal Cannula O2 Flow Rate 3.0 3.0 3.0 3.0 10/13/16 10/13/16 10/13/16 10/13/16 05:00 06:00 07:00 07:45 Pulse 72 72 72 Resp 24 22 15 B/P (MAP) 167/89 (115) 158/99 (118) 167/102 (123) Pulse Ox 97 95 96 96 O2 Delivery Nasal Cannula Nasal Cannula Nasal Cannula Nasal Cannula O2 Flow Rate 3.0 3.0 3.0 2.0 10/13/16 10/13/16 10/13/16 10/13/16 07:52 08:00 08:00 08:22 Temp 97.5 97.5 Pulse 98 Resp 28 21 15 B/P (MAP) 160/98 (118) Pulse Ox 95 O2 Delivery Nasal Cannula Nasal Cannula Nasal Cannula Nasal Cannula O2 Flow Rate 3.0 3.0 3.0 3.0 10/13/16 10/13/16 10/13/16 10/13/16 09:00 10:00 11:00 12:00 Temp 97.5 97.5 Pulse 98 86 77 98 Resp 14 14 18 18 B/P (MAP) 160/98 (118) 159/103 (121) 173/102 (125) 168/98 (121) Pulse Ox 96 96 96 94 O2 Delivery Nasal Cannula Nasal Cannula Nasal Cannula Nasal Cannula O2 Flow Rate 3.0 3.0 3.0 2.0 10/13/16 10/13/16 12:00 12:25 O2 Delivery Nasal Cannula Nasal Cannula O2 Flow Rate 2.0 2.0 Intake and Output 10/12/16 10/12/16 10/13/16 15:00 23:00 07:00 Intake Total 2646 ml 2040 ml Output Total 1125 ml 975 ml 1675 ml Balance -1125 ml 1671 ml 365 ml Problem List Esophageal mass-with pleural effusion, await pathology, prognosis guarded, patient doesn't want feeding tube ROGER ANNA MD Oct 13, 2016 13:07
--- NOTE | 2016-10-13 13:09 | PDOC ---
PROGRESS NOTES Chief Complaint Chief Complaint 1. Pleural effusion: suspected malignant 2. Esophageal mass: s/p EGD on 10/10 with bx 3. pulm nodules: stage 4 metasis 4. 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 Respir arrest at EGD: extubated successfully 10/12 6. SIRS: likely 2/2 viral URI 7. Leukocytosis 8. Malnutrition 8. Hypomagnesemia 9. CHF 10. abn TSH 11. smoker History of Present Illness History of Present Illness patient resting comfortably in bed with oxygen by [place], family meeting planned for 1 pm to consider DNR, plan to transfer to medical floor today Vitals Vitals Vital Signs Date Time Temp Pulse Resp B/P (MAP) Pulse Ox O2 Delivery O2 Flow Rate FiO2 10/13/16 11:00 77 18 173/102 (125) 96 Nasal Cannula 3.0 10/13/16 08:00 97.5 97.5 Physical Exam General: Alert, Oriented X3, Cooperative, No acute distress Heart: Regular rate, No murmurs Lungs: Other (decreased BS in LLL) Abdomen: Normal bowel sounds, Soft, No masses Extremities: No cyanosis, No edema Skin: No rashes, No breakdown Review of Systems Review of Systems denies headache, nausea, or vomiting denies SOB Assessment and Plan Assessmemt and Plan Assessment: 1. Pleural effusion: suspected malignant 2. Esophageal mass: s/p EGD on 10/10 with bx 3. pulm nodules: stage 4 metasis 4. 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 Respir arrest at EGD: extubated successfully 10/12 6. SIRS: likely 2/2 viral URI 7. Leukocytosis 8. Malnutrition 8. Hypomagnesemia 9. CHF 10. abn TSH 11. smoker Plan: 1. NPO, considering PEG in future 2. Await path report for esophageal pass, s/p EGD on 10/10 with bx 3. Appreciate subspecialty input 4. continue on solumedrol for stridor post extubation 5. Recheck labs and CBC tomorrow 6. D/w nursing plan of care 7. Continue oxygen by [place] 8. Follow CXR and monitor for further increase in effusion 9. Recheck CBC and labs 10. Transfer to medical floor Problems: Comment Review of Relevant I have reviewed the following items fausto (where applicable) has been applied. Labs Laboratory Tests Test 10/12/16 08:51 White Blood Count 11.9 x10^3/uL (4.0-11.0) Red Blood Count 4.06 x10^6/uL (3.50-5.40) Hemoglobin 13.0 g/dL (12.0-15.5) Hematocrit 38.2 % (36.0-47.0) Mean Corpuscular Volume 94 fL (79-100) Mean Corpuscular Hemoglobin 32 pg (25-35) Mean Corpuscular Hemoglobin Concent 34 g/dL (31-37) Red Cell Distribution Width 13.5 % (11.5-14.5) Platelet Count 273 x10^3/uL (140-400) Neutrophils (%) (Auto) 92 % (31-73) Lymphocytes (%) (Auto) 6 % (24-48) Monocytes (%) (Auto) 2 % (0-9) Eosinophils (%) (Auto) 0 % (0-3) Basophils (%) (Auto) 0 % (0-3) Neutrophils # (Auto) 10.9 x10^3uL (1.8-7.7) Lymphocytes # (Auto) 0.7 x10^3/uL (1.0-4.8) Monocytes # (Auto) 0.3 x10^3/uL (0.0-1.1) Eosinophils # (Auto) 0.0 x10^3/uL (0.0-0.7) Basophils # (Auto) 0.0 x10^3/uL (0.0-0.2) Sodium Level 142 mmol/L (136-145) Potassium Level 3.7 mmol/L (3.5-5.1) Chloride Level 107 mmol/L (98-107) Carbon Dioxide Level 27 mmol/L (21-32) Anion Gap 8 (6-14) Blood Urea Nitrogen 9 mg/dL (7-20) Creatinine 0.5 mg/dL (0.6-1.0) Estimated GFR (Cockcroft-Gault) 153.3 Glucose Level 159 mg/dL (70-99) Calcium Level 8.8 mg/dL (8.5-10.1) Microbiology 10/08/16 Gram Stain - Final, Complete 10/07/16 Urine Culture - Final, Complete 10/07/16 Urine Culture Result 1 (PERI) - Final, Complete Medications Current Medications Albuterol/ Ipratropium (Duoneb) 3 ml 1X ONCE NEB Last administered on 14:01; Start 10/07/16 at 13:30; Stop 10/07/16 at 13:31; Status DC Acetaminophen (Tylenol) 650 mg PRN Q6HRS PRN PO FEVER; Start 10/07/16 at 15:45 Ondansetron HCl (Zofran) 4 mg PRN Q6HRS PRN IV NAUSEA/VOMITING Last administered on 10/13/16 07:52; Start 10/07/16 at 15:45 Morphine Sulfate 2 mg PRN Q2HR PRN IV PAIN Last administered on 10/13/16 07:52 ; Start 10/07/16 at 15:45 Tramadol HCl (Ultram) 50 mg PRN Q6HRS PRN PO PAIN Last administered on 20:58; Start 10/07/16 at 15:45 Hydralazine HCl (Apresoline) 10 mg PRN Q4HRS PRN IVP ELEVATED BP, SEE COMMENTS ; Start 10/07/16 at 15:45 Docusate Sodium (Colace) 100 mg PRN DAILY PRN PO CONSTIPATION; Start 10/07/16 at 15:45 Albuterol/ Ipratropium (Duoneb) 3 ml RTQID NEB Last administered on 10/13/16 07 :44; Start 10/07/16 at 16:00 Albuterol Sulfate (Ventolin Neb Soln) 2.5 mg PRN Q2HR PRN NEB SHORTNESS OF BREATH; Start 10/07/16 at 15:45 Guaifenesin (Mucinex) 600 mg BID PO Last administered on 10/09/16 20:58; Start 10/07/16 at 21:00; Stop 10/13/16 at 11:49; Status DC Nicotine (Nicoderm Cq 7mg) 1 patch PRN DAILY PRN TD SMOKING CESSATION; Start at 15:45 Heparin Sodium (Porcine) (Heparin Sq) 5,000 unit Q8HRS SQ Last administered on 10/07/16 21:17; Start 10/07/16 at 22:00; Stop 10/07/16 at 23:07; Status DC Throat Lozenges (Cepacol Sore Throat Lozenge) 1 moises PRN Q2HRS PRN PO SORE THROAT Last administered on 10/08/16 20:40; Start 10/07/16 at 15:45 Magnesium Sulfate/ Dextrose 50 ml @ 25 mls/hr 1X ONCE IV Last administered on 10/07/16 16:03; Start 10/07/16 at 15:45; Stop 10/07/16 at 17:44; Status DC Lidocaine/Sodium Bicarbonate (Buffered Lidocaine 1%) 20 ml STK-MED ONCE IJ ; Start 10/08/16 at 12:39; Stop 10/08/16 at 12:40; Status DC Midazolam HCl (Versed) 5 mg STK-MED ONCE .ROUTE ; Start 10/08/16 at 13:05; Stop 10/08/16 at 13:06; Status DC Fentanyl Citrate (Fentanyl 5ml Vial) 250 mcg STK-MED ONCE .ROUTE ; Start at 13:05; Stop 10/08/16 at 13:06; Status DC Lidocaine/Sodium Bicarbonate (Buffered Lidocaine 1%) 9 ml 1X ONCE IJ Last administered on 10/08/16 13:41; Start 10/08/16 at 13:30; Stop 10/08/16 at 13:32 ; Status DC Midazolam HCl (Versed) 1 mg 1X ONCE IV Last administered on 10/08/16 13:42; Start 10/08/16 at 13:30; Stop 10/08/16 at 13:32; Status DC Fentanyl Citrate (Fentanyl 5ml Vial) 50 mcg 1X ONCE IV Last administered on 13:42; Start 10/08/16 at 13:30; Stop 10/08/16 at 13:32; Status DC Iohexol (Omnipaque 300 Mg/ml) 75 ml 1X ONCE IV Last administered on 10/09/16 11:58; Start 10/09/16 at 11:45; Stop 10/09/16 at 11:46; Status DC Info (Do NOT chart on this entry -- for MONITORING) 1 each PRN DAILY PRN MC SEE COMMENTS; Start 10/09/16 at 11:45; Stop 10/11/16 at 11:44; Status DC Diphenhydramine HCl (Benadryl) 50 mg 1X ONCE IVP Last administered on t 18:24; Start 10/09/16 at 18:15; Stop 10/09/16 at 18:16; Status DC Methylprednisolone Sodium Succinate (SOLU-Medrol 40MG VIAL) 40 mg 1X ONCE IV Last administered on 10/09/16t 18:24; Start 10/09/16 at 18:15; Stop 10/09/16 at 18:16; Status DC Midazolam HCl (Versed) 2 mg PRN 1X PRN IV PRIOR TO PROCEDURE; Start 10/10/16 at 09:45; Stop 10/11/16 at 09:44; Status DC Fentanyl Citrate (Fentanyl 2ml Vial) 25 mcg PRN Q5MIN PRN IV X 2 DOSES FOR PAIN ; Start 10/10/16 at 09:45; Stop 10/11/16 at 09:44; Status DC Fentanyl Citrate (Fentanyl 2ml Vial) 50 mcg PRN Q5MIN PRN IV X 2 DOSES FOR PAIN ; Start 10/10/16 at 09:45; Stop 10/11/16 at 09:44; Status DC Ringer's Solution 1,000 ml @ 125 mls/hr Q8H IV ; Start 10/10/16 at 09:43; Stop 10/10/16 at 21:42; Status DC Lidocaine HCl 2 ml 1X PRN PRN ID IV START; Start 10/10/16 at 09:45; Stop at 09:44; Status DC Propofol 40 ml @ As Directed STK-MED ONCE IV ; Start 10/10/16 at 10:44; Stop at 10:45; Status DC Lidocaine HCl (Lidocaine Pf 2% Vial) 5 ml STK-MED ONCE .ROUTE ; Start 10/10/16 at 10:44; Stop 10/10/16 at 10:45; Status DC Propofol 100 ml @ As Directed STK-MED ONCE IV ; Start 10/10/16 at 11:42; Stop 10/10/16 at 11:43; Status DC Midazolam HCl 100 ml @ As Directed STK-MED ONCE IV ; Start 10/10/16 at 12:17; Stop 10/10/16 at 12:18; Status DC Enoxaparin Sodium (Lovenox 40mg Syringe) 40 mg Q24H SQ ; Start 10/11/16 at 10:00 ; Stop 10/11/16 at 10:00; Status DC Famotidine (Pepcid) 20 mg QHS IVP Last administered on 10/12/16 21:00; Start at 21:00 Amino Acids/ Glycerin/ Electrolytes 1,000 ml @ 80 mls/hr [id number] IV Last administered on 10/13/16 04:05; Start 10/10/16 at 14:00 Midazolam HCl 100 ml @ As Directed STK-MED ONCE IV ; Start 10/10/16 at 16:07; Stop 10/10/16 at 16:08; Status DC Fentanyl Citrate 30 ml @ 0 mls/hr CONT PRN PRN IV PROTOCOL Last administered on 10/11/16 03:36; Start 10/10/16 at 16:30 Midazolam HCl 100 ml @ 0 mls/hr CONT PRN IV SEE I/O RECORD Last administered on 10/11/16 03:35; Start 10/10/16 at 16:30 Pamidronate Disodium 90 mg/ Sodium Chloride 250 ml @ 83.333 mls/ hr 1X ONCE IV Last administered on 10/10/16 17:29; Start 10/10/16 at 17:00; Stop at 19:59; Status DC Sodium Chloride 1,000 ml @ 125 mls/hr Q8H IV Last administered on 10/13/16 04: 48; Start 10/10/16 at 21:00 Epinephrine (S2 Racepinephrine) 0.5 ml 1X ONCE NEB Last administered on 07:55; Start 10/11/16 at 15:30; Stop 10/11/16 at 15:31; Status DC Lorazepam (Ativan) 0.5 mg PRN Q6HRS PRN IV ANXIETY / AGITATION Last administered on 10/11/16 15:39; Start 10/11/16 at 15:30 Lorazepam (Ativan) 0.25 mg PRN Q6HRS PRN IV ANXIETY / AGITATION; Start 10/11/16 at 15:30 Methylprednisolone Sodium Succinate (SOLU-Medrol 125MG VIAL) 60 mg Q6HRS IV Last administered on 10/13/16 05:00; Start 10/11/16 at 15:30 Active Scripts Active No Active Prescriptions or Reported Medications Vitals/I & O Vital Sign - Last 24 Hours 10/12/16 10/12/16 10/12/16 10/12/16 13:00 14:00 15:00 15:18 Pulse 84 82 76 Resp 20 21 17 26 B/P (MAP) 145/91 (109) 141/91 (108) 153/93 (113) Pulse Ox 95 95 96 95 O2 Delivery Nasal Cannula Nasal Cannula Nasal Cannula Nasal Cannula O2 Flow Rate 3.0 3.0 3.0 3.0 10/12/16 10/12/16 10/12/16 10/12/16 16:00 16:00 16:00 17:00 Temp 97.5 97.5 Pulse 78 82 Resp 22 18 B/P (MAP) 157/95 (115) 147/83 (104) Pulse Ox 98 96 94 O2 Delivery Nasal Cannula Nasal Cannula Nasal Cannula Nasal Cannula O2 Flow Rate 3.0 3.0 3.0 3.0 10/12/16 10/12/16 10/12/16 10/12/16 18:00 19:00 19:51 20:00 Temp 97.7 97.7 Pulse 90 84 84 Resp 20 30 21 B/P (MAP) 166/95 (118) 158/95 (116) 158/93 (114) Pulse Ox 93 95 96 96 O2 Delivery Nasal Cannula Nasal Cannula Nasal Cannula Nasal Cannula O2 Flow Rate 3.0 3.0 3.0 3.0 10/12/16 10/12/16 10/12/16 10/12/16 20:20 21:00 21:02 21:35 Pulse 92 Resp 26 22 B/P (MAP) 159/91 (113) Pulse Ox 92 96 96 O2 Delivery Nasal Cannula Nasal Cannula Nasal Cannula O2 Flow Rate 3.0 3.0 3.0 10/12/16 10/12/16 10/13/16 10/13/16 22:00 23:00 00:01 00:01 Temp 97.5 97.5 Pulse 79 80 74 Resp 22 18 20 B/P (MAP) 151/93 (112) 155/95 (115) 154/92 (112) Pulse Ox 97 97 96 O2 Delivery Nasal Cannula Nasal Cannula Nasal Cannula Nasal Cannula O2 Flow Rate 3.0 3.0 3.0 3.0 10/13/16 10/13/16 10/13/16 10/13/16 01:00 02:00 03:00 04:00 Temp 97.9 97.9 Pulse 82 75 76 72 Resp 24 20 22 20 B/P (MAP) 177/99 (125) 161/94 (116) 163/96 (118) 170/97 (121) Pulse Ox 97 97 95 97 O2 Delivery Nasal Cannula Nasal Cannula Nasal Cannula Nasal Cannula O2 Flow Rate 3.0 3.0 3.0 3.0 10/13/16 10/13/16 10/13/16 10/13/16 04:00 05:00 06:00 07:00 Pulse 72 72 72 Resp 24 22 15 B/P (MAP) 167/89 (115) 158/99 (118) 167/102 (123) Pulse Ox 97 95 96 O2 Delivery Nasal Cannula Nasal Cannula Nasal Cannula Nasal Cannula O2 Flow Rate 3.0 3.0 3.0 3.0 10/13/16 10/13/16 10/13/16 10/13/16 07:45 07:52 08:00 08:00 Temp 97.5 97.5 Pulse 98 Resp 28 21 B/P (MAP) 160/98 (118) Pulse Ox 96 95 O2 Delivery Nasal Cannula Nasal Cannula Nasal Cannula Nasal Cannula O2 Flow Rate 2.0 3.0 3.0 3.0 10/13/16 10/13/16 10/13/16 10/13/16 08:22 09:00 10:00 11:00 Pulse 98 86 77 Resp 15 14 14 18 B/P (MAP) 160/98 (118) 159/103 (121) 173/102 (125) Pulse Ox 96 96 96 O2 Delivery Nasal Cannula Nasal Cannula Nasal Cannula Nasal Cannula O2 Flow Rate 3.0 3.0 3.0 3.0 Intake and Output 10/12/16 10/12/16 10/13/16 15:00 23:00 07:00 Intake Total 2646 ml 2040 ml Output Total 1125 ml 975 ml 1675 ml Balance -1125 ml 1671 ml 365 ml ALISA NOYOLA III DO Oct 13, 2016 13:09
--- NOTE | 2016-10-13 14:33 | PATHOLOGY ---
PATHOLOGY REPORT * * * * * * * * FINAL DIAGNOSIS: Esophageal biopsy, esophageal mass at 30 cm: - Invasive squamous cell carcinoma, moderately differentiated. See comment. COMMENT: Sections of the esophageal mass at 30 cm biopsy reveal a malignant epithelial neoplasm. There are irregular nests of malignant squamous epithelium which are focally attached to and infiltrate beneath the overlying squamous mucosal epithelium. The malignant cells have variable amounts of eosinophilic cytoplasm and have fairly well-demarcated cell borders. The malignant cells possess enlarged, rounded to ovoid nuclei containing prominent nucleoli. The malignant cells show evidence of keratinization with dyskeratotic cells and keratin pearls noted. Mitotic figures are present. There is focal ulceration. The stroma of the tumor shows chronic inflammation. The morphologic findings are supportive of the diagnosis of an invasive moderately-differentiated squamous cell carcinoma. The case is also examined by Dr. Gonsalez who concurs with the diagnosis. (JPM:mm; 10/13/2016) REPORT ELECTRONICALLY SIGNED BY: Tru Yee M.D. DATE/TIME: 10/13/2016 14:33 * * * * * * * * GROSS PATHOLOGY: Received in formalin labeled "Ar Phillips, esophageal mass @ 30cm," are multiple segments of young soft tissue measuring from 0.1 up to 0.2 cm in maximum dimension. The specimen is submitted entirely in cassette A1. (JPM; 10/10/16) INITIAL CPT CODE(S): A; 84209 Professional services performed by [facility] at [address] [address] Technical services performed by [facility] at [address] [place] [address]. SPECIMEN(S) RECEIVED: A.Esophageal mass at 30cm CLINICAL HISTORY: Dysphagia; esophageal mass PATIENT: AR PHILLIPS /AGE: [id number] (Age: 56) PATIENT #: [id number] ALT CASE #: SPECIMEN COLLECTION DATE: 10/10/2016 SPECIMEN RECEIVED DATE: 10/10/2016 [facility] - [address] [place] [address] - PHONE: [phone] * * * END OF REPORT * * *
--- NOTE | 2016-10-13 14:41 | PDOC2 ---
PALLIATIVE CARE Palliative Care Note Palliative Care Met with patient 0930. Reviewed medical condition: Esophogeal mass --biopsy pending; Pleural effusion/nodules. likely malignant. Discussed with Dr. Priya Eric. Patient is aware of her diagnosis; worried about her family. Does not want to be a burden Stated she wanted to make decisions and find information by herself (bx report) before meeting with family Discussed code status: Patient requested DNR/ DNI. Understands without this attempt likely she would . States she has told the doctors she does not want a feeding tube. Planned family meeting today at 1300. Met with patient, Will; daughter Justyna and son Kip. Reviewed medical condition with family. Waiting results of bx Plan: DNR/DNI requested by patient. After visiting with family patient has decided she wants to remain Full Code. Understand risks and benefits. Will continue to follow and support. If hospice is an option when discharged - will need assistance of Neurosurgery Research Director. Patient has no insurance. REYNA LANDON Oct 13, 2016 14:41
[2016-10-13] MEDS: traMADol 50 MG TABLET PO PRN (17:46)
[2016-10-13] MEDS: FAMOTIDINE 20 MG/2 ML VIAL IVP SCH (19:38)
[2016-10-13] MEDS: BENZOCAINE/MENTHOL LOZENGE. PO PRN (23:44)
[2016-10-13] MEDS ORDERED: amLODIPine BESYLATE 10 MG TABLET PO ONE (23:45)
[2016-10-14 03:00] VITALS: BP 154/88
[2016-10-14 05:00] LABS: BASO % 0 % (0-3); EOS % 0 % (0-3); HEMATOCRIT 39.4 % (36.0-47.0); HEMOGLOBIN 12.9 g/dL (12.0-15.5); LYMPH # 0.9 x10^3/uL (1.0-4.8); LYMPH % 4 % (24-48); MEAN CORPUSCULAR HEMOGLOBIN 31 pg (25-35); MEAN CORPUSCULAR HGB CONC 33 g/dL (31-37); MEAN CORPUSCULAR VOLUME 95 fL (79-100); MONO % 6 % (0-9); NEUT % 90 % (31-73); PLATELET COUNT 324 x10^3/uL (140-400); RED BLOOD COUNT 4.13 x10^6/uL (3.50-5.40); RED CELL DISTRIBUTION WIDTH 13.2 % (11.5-14.5); WHITE BLOOD COUNT 19.9 x10^3/uL (4.0-11.0)
[2016-10-14 05:09] LABS: CALCIUM 8.8 mg/dL (8.5-10.1); CREATININE 0.6 mg/dL (0.6-1.0); GFR 124.2; POTASSIUM 3.5 mmol/L (3.5-5.1)
[2016-10-14] MEDS: methylPREDNISolone SOD SUCC PF 125 MG/2 ML VIAL. IV SCH ×4 (05:48→22:41)
[2016-10-14] MEDS: MORPHINE SULFATE 2 MG/ML DISP.SYRIN. IV PRN ×5 (05:48→23:09)
[2016-10-14] MEDS: AMINO AC 3%/ELECTROLYTE/GLYCER 1,000 ML IV SCH ×2 (05:48→18:15)
[2016-10-14 07:00] VITALS: BP_SYST 152; BP_SYST 163; BP_DIAS 101; BP_DIAS 99
[2016-10-14] MEDS: IPRATRPIUM/ALBUTEROL 0.5/2.5MG 3 ML NEBU. NEB SCH ×4 (07:42→18:54)
[2016-10-14] MEDS: amLODIPine BESYLATE 10 MG TABLET PO SCH (08:47)
[2016-10-14 09:05] LABS: % BASOS 1 % (0-3); PLT ESTIMATE ADEQUATE (ADEQUATE)
--- NOTE | 2016-10-14 09:38 | RAD ---
Indication shortness of air. A single view of the chest was obtained. Comparison is made to a study one day earlier. There has not been a significant change. The right lung is clear apart from a probable small pleural effusions. Infiltrate and pleural fluid in the left lung is similar. Heart and pulmonary vessels are similar. IMPRESSION: No significant change
[2016-10-14] MEDS ORDERED: POLYETHYLENE GLYCOL 3350 17 GM PACKET. PO PRN (10:00)
[2016-10-14] MEDS ORDERED: MAGNESIUM HYDROXIDE 2,400 MG/30 ML ORAL.SUSP. PO PRN ×2 (10:00→12:00)
[2016-10-14] MEDS ORDERED: cloNIDine HCL 0.1 MG TABLET PO PRN (10:00)
[2016-10-14 10:55] VITALS: BP 125/89
[2016-10-14] MEDS: DOCUSATE SODIUM 100 MG CAPSULE. PO SCH (11:16)
--- NOTE | 2016-10-14 11:56 | PDOC ---
PROGRESS NOTES Chief Complaint Chief Complaint 1. 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 Pleural effusion: neg cytology but suspect malignant 3. pulm nodules: stage 4 metasis 4. 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 Respir arrest at EGD: extubated successfully 10/12 6. SIRS: likely 2/2 viral URI 7. Leukocytosis 8. Malnutrition 8. Hypomagnesemia 9. CHF. compensated now (10/14) 10. abn TSH 11. smoker History of Present Illness History of Present Illness Path report provided to patient - it is CANCER LOts of questions, discussed about palliative chemo if that was advised by heme onc (time 30 mins alone in room) Extensive course reviewed, palliative several notes throughout her stay here so far She still would like to live long,as she relays to me Issues today: Constipated COughing SOA BP high PLAN: Start bowel regimen Start robitussin prn clonidine for high BP COnt Procalamine Start DVT prophy if not yet on Palliative to revisit now we have definitive dx HEme onc for further recs - palliative chemo? Vitals Vitals Vital Signs Date Time Temp Pulse Resp B/P (MAP) Pulse Ox O2 Delivery O2 Flow Rate FiO2 10/14/16 11:17 Nasal Cannula 10/14/16 10:55 97.7 86 20 125/89 (101) 97 2.0 97.7 Physical Exam General: Alert, Oriented X3, Cooperative, No acute distress Heart: Regular rate, No murmurs Lungs: Other (decreased BS in LLL) Abdomen: Normal bowel sounds, Soft, No masses Extremities: No cyanosis, No edema Skin: No rashes, No breakdown Labs LABS Laboratory Tests Test 10/14/16 04:25 White Blood Count 19.9 x10^3/uL (4.0-11.0) Red Blood Count 4.13 x10^6/uL (3.50-5.40) Hemoglobin 12.9 g/dL (12.0-15.5) Hematocrit 39.4 % (36.0-47.0) Mean Corpuscular Volume 95 fL (79-100) Mean Corpuscular Hemoglobin 31 pg (25-35) Mean Corpuscular Hemoglobin Concent 33 g/dL (31-37) Red Cell Distribution Width 13.2 % (11.5-14.5) Platelet Count 324 x10^3/uL (140-400) Neutrophils (%) (Auto) 90 % (31-73) Lymphocytes (%) (Auto) 4 % (24-48) Monocytes (%) (Auto) 6 % (0-9) Eosinophils (%) (Auto) 0 % (0-3) Basophils (%) (Auto) 0 % (0-3) Neutrophils # (Auto) 17.9 x10^3uL (1.8-7.7) Lymphocytes # (Auto) 0.9 x10^3/uL (1.0-4.8) Monocytes # (Auto) 1.1 x10^3/uL (0.0-1.1) Eosinophils # (Auto) 0.0 x10^3/uL (0.0-0.7) Basophils # (Auto) 0.0 x10^3/uL (0.0-0.2) Segmented Neutrophils % 86 % (35-66) Band Neutrophils % 1 % (0-9) Lymphocytes % 11 % (24-48) Monocytes % 1 % (0-10) Basophils % 1 % (0-3) Platelet Estimate Adequate (ADEQUATE) Sodium Level 141 mmol/L (136-145) Potassium Level 3.5 mmol/L (3.5-5.1) Chloride Level 104 mmol/L (98-107) Carbon Dioxide Level 30 mmol/L (21-32) Anion Gap 7 (6-14) Blood Urea Nitrogen 12 mg/dL (7-20) Creatinine 0.6 mg/dL (0.6-1.0) Estimated GFR (Cockcroft-Gault) 124.2 Glucose Level 158 mg/dL (70-99) Calcium Level 8.8 mg/dL (8.5-10.1) Review of Systems Review of Systems soa, weak, no cp, emesis or abd pain Comment Review of Relevant I have reviewed the following items fausto (where applicable) has been applied. Labs Laboratory Tests Test 10/14/16 04:25 White Blood Count 19.9 x10^3/uL (4.0-11.0) Red Blood Count 4.13 x10^6/uL (3.50-5.40) Hemoglobin 12.9 g/dL (12.0-15.5) Hematocrit 39.4 % (36.0-47.0) Mean Corpuscular Volume 95 fL (79-100) Mean Corpuscular Hemoglobin 31 pg (25-35) Mean Corpuscular Hemoglobin Concent 33 g/dL (31-37) Red Cell Distribution Width 13.2 % (11.5-14.5) Platelet Count 324 x10^3/uL (140-400) Neutrophils (%) (Auto) 90 % (31-73) Lymphocytes (%) (Auto) 4 % (24-48) Monocytes (%) (Auto) 6 % (0-9) Eosinophils (%) (Auto) 0 % (0-3) Basophils (%) (Auto) 0 % (0-3) Neutrophils # (Auto) 17.9 x10^3uL (1.8-7.7) Lymphocytes # (Auto) 0.9 x10^3/uL (1.0-4.8) Monocytes # (Auto) 1.1 x10^3/uL (0.0-1.1) Eosinophils # (Auto) 0.0 x10^3/uL (0.0-0.7) Basophils # (Auto) 0.0 x10^3/uL (0.0-0.2) Segmented Neutrophils % 86 % (35-66) Band Neutrophils % 1 % (0-9) Lymphocytes % 11 % (24-48) Monocytes % 1 % (0-10) Basophils % 1 % (0-3) Platelet Estimate Adequate (ADEQUATE) Sodium Level 141 mmol/L (136-145) Potassium Level 3.5 mmol/L (3.5-5.1) Chloride Level 104 mmol/L (98-107) Carbon Dioxide Level 30 mmol/L (21-32) Anion Gap 7 (6-14) Blood Urea Nitrogen 12 mg/dL (7-20) Creatinine 0.6 mg/dL (0.6-1.0) Estimated GFR (Cockcroft-Gault) 124.2 Glucose Level 158 mg/dL (70-99) Calcium Level 8.8 mg/dL (8.5-10.1) Laboratory Tests Test 10/14/16 04:25 White Blood Count 19.9 x10^3/uL (4.0-11.0) Red Blood Count 4.13 x10^6/uL (3.50-5.40) Hemoglobin 12.9 g/dL (12.0-15.5) Hematocrit 39.4 % (36.0-47.0) Mean Corpuscular Volume 95 fL (79-100) Mean Corpuscular Hemoglobin 31 pg (25-35) Mean Corpuscular Hemoglobin Concent 33 g/dL (31-37) Red Cell Distribution Width 13.2 % (11.5-14.5) Platelet Count 324 x10^3/uL (140-400) Neutrophils (%) (Auto) 90 % (31-73) Lymphocytes (%) (Auto) 4 % (24-48) Monocytes (%) (Auto) 6 % (0-9) Eosinophils (%) (Auto) 0 % (0-3) Basophils (%) (Auto) 0 % (0-3) Neutrophils # (Auto) 17.9 x10^3uL (1.8-7.7) Lymphocytes # (Auto) 0.9 x10^3/uL (1.0-4.8) Monocytes # (Auto) 1.1 x10^3/uL (0.0-1.1) Eosinophils # (Auto) 0.0 x10^3/uL (0.0-0.7) Basophils # (Auto) 0.0 x10^3/uL (0.0-0.2) Segmented Neutrophils % 86 % (35-66) Band Neutrophils % 1 % (0-9) Lymphocytes % 11 % (24-48) Monocytes % 1 % (0-10) Basophils % 1 % (0-3) Platelet Estimate Adequate (ADEQUATE) Sodium Level 141 mmol/L (136-145) Potassium Level 3.5 mmol/L (3.5-5.1) Chloride Level 104 mmol/L (98-107) Carbon Dioxide Level 30 mmol/L (21-32) Anion Gap 7 (6-14) Blood Urea Nitrogen 12 mg/dL (7-20) Creatinine 0.6 mg/dL (0.6-1.0) Estimated GFR (Cockcroft-Gault) 124.2 Glucose Level 158 mg/dL (70-99) Calcium Level 8.8 mg/dL (8.5-10.1) Microbiology 10/08/16 Gram Stain - Final, Complete 10/07/16 Urine Culture - Final, Complete 10/07/16 Urine Culture Result 1 (PERI) - Final, Complete Medications Current Medications Albuterol/ Ipratropium (Duoneb) 3 ml 1X ONCE NEB Last administered on 14:01; Start 10/07/16 at 13:30; Stop 10/07/16 at 13:31; Status DC Acetaminophen (Tylenol) 650 mg PRN Q6HRS PRN PO FEVER; Start 10/07/16 at 15:45 Ondansetron HCl (Zofran) 4 mg PRN Q6HRS PRN IV NAUSEA/VOMITING Last administered on 10/13/16 07:52; Start 10/07/16 at 15:45 Morphine Sulfate 2 mg PRN Q2HR PRN IV PAIN Last administered on 10/14/16 11:17 ; Start 10/07/16 at 15:45 Tramadol HCl (Ultram) 50 mg PRN Q6HRS PRN PO PAIN Last administered on 17:46; Start 10/07/16 at 15:45 Hydralazine HCl (Apresoline) 10 mg PRN Q4HRS PRN IVP ELEVATED BP, SEE COMMENTS ; Start 10/07/16 at 15:45 Docusate Sodium (Colace) 100 mg PRN DAILY PRN PO CONSTIPATION; Start 10/07/16 at 15:45 Albuterol/ Ipratropium (Duoneb) 3 ml RTQID NEB Last administered on 10/14/16 07 :42; Start 10/07/16 at 16:00 Albuterol Sulfate (Ventolin Neb Soln) 2.5 mg PRN Q2HR PRN NEB SHORTNESS OF BREATH; Start 10/07/16 at 15:45 Guaifenesin (Mucinex) 600 mg BID PO Last administered on 10/09/16 20:58; Start 10/07/16 at 21:00; Stop 10/13/16 at 11:49; Status DC Nicotine (Nicoderm Cq 7mg) 1 patch PRN DAILY PRN TD SMOKING CESSATION; Start at 15:45 Heparin Sodium (Porcine) (Heparin Sq) 5,000 unit Q8HRS SQ Last administered on 10/07/16 21:17; Start 10/07/16 at 22:00; Stop 10/07/16 at 23:07; Status DC Throat Lozenges (Cepacol Sore Throat Lozenge) 1 moises PRN Q2HRS PRN PO SORE THROAT Last administered on 10/13/16 23:44; Start 10/07/16 at 15:45 Magnesium Sulfate/ Dextrose 50 ml @ 25 mls/hr 1X ONCE IV Last administered on 10/07/16 16:03; Start 10/07/16 at 15:45; Stop 10/07/16 at 17:44; Status DC Lidocaine/Sodium Bicarbonate (Buffered Lidocaine 1%) 20 ml STK-MED ONCE IJ ; Start 10/08/16 at 12:39; Stop 10/08/16 at 12:40; Status DC Midazolam HCl (Versed) 5 mg STK-MED ONCE .ROUTE ; Start 10/08/16 at 13:05; Stop 10/08/16 at 13:06; Status DC Fentanyl Citrate (Fentanyl 5ml Vial) 250 mcg STK-MED ONCE .ROUTE ; Start at 13:05; Stop 10/08/16 at 13:06; Status DC Lidocaine/Sodium Bicarbonate (Buffered Lidocaine 1%) 9 ml 1X ONCE IJ Last administered on 10/08/16 13:41; Start 10/08/16 at 13:30; Stop 10/08/16 at 13:32 ; Status DC Midazolam HCl (Versed) 1 mg 1X ONCE IV Last administered on 10/08/16 13:42; Start 10/08/16 at 13:30; Stop 10/08/16 at 13:32; Status DC Fentanyl Citrate (Fentanyl 5ml Vial) 50 mcg 1X ONCE IV Last administered on 13:42; Start 10/08/16 at 13:30; Stop 10/08/16 at 13:32; Status DC Iohexol (Omnipaque 300 Mg/ml) 75 ml 1X ONCE IV Last administered on 10/09/16 11:58; Start 10/09/16 at 11:45; Stop 10/09/16 at 11:46; Status DC Info (Do NOT chart on this entry -- for MONITORING) 1 each PRN DAILY PRN MC SEE COMMENTS; Start 10/09/16 at 11:45; Stop 10/11/16 at 11:44; Status DC Diphenhydramine HCl (Benadryl) 50 mg 1X ONCE IVP Last administered on 6/29/ 17at 18:24; Start 10/09/16 at 18:15; Stop 10/09/16 at 18:16; Status DC Methylprednisolone Sodium Succinate (SOLU-Medrol 40MG VIAL) 40 mg 1X ONCE IV Last administered on 10/09/16t 18:24; Start 10/09/16 at 18:15; Stop 10/09/16 at 18:16; Status DC Midazolam HCl (Versed) 2 mg PRN 1X PRN IV PRIOR TO PROCEDURE; Start 10/10/16 at 09:45; Stop 10/11/16 at 09:44; Status DC Fentanyl Citrate (Fentanyl 2ml Vial) 25 mcg PRN Q5MIN PRN IV X 2 DOSES FOR PAIN ; Start 10/10/16 at 09:45; Stop 10/11/16 at 09:44; Status DC Fentanyl Citrate (Fentanyl 2ml Vial) 50 mcg PRN Q5MIN PRN IV X 2 DOSES FOR PAIN ; Start 10/10/16 at 09:45; Stop 10/11/16 at 09:44; Status DC Ringer's Solution 1,000 ml @ 125 mls/hr Q8H IV ; Start 10/10/16 at 09:43; Stop 10/10/16 at 21:42; Status DC Lidocaine HCl 2 ml 1X PRN PRN ID IV START; Start 10/10/16 at 09:45; Stop at 09:44; Status DC Propofol 40 ml @ As Directed STK-MED ONCE IV ; Start 10/10/16 at 10:44; Stop at 10:45; Status DC Lidocaine HCl (Lidocaine Pf 2% Vial) 5 ml STK-MED ONCE .ROUTE ; Start 10/10/16 at 10:44; Stop 10/10/16 at 10:45; Status DC Propofol 100 ml @ As Directed STK-MED ONCE IV ; Start 10/10/16 at 11:42; Stop 10/10/16 at 11:43; Status DC Midazolam HCl 100 ml @ As Directed STK-MED ONCE IV ; Start 10/10/16 at 12:17; Stop 10/10/16 at 12:18; Status DC Enoxaparin Sodium (Lovenox 40mg Syringe) 40 mg Q24H SQ ; Start 10/11/16 at 10:00 ; Stop 10/11/16 at 10:00; Status DC Famotidine (Pepcid) 20 mg QHS IVP Last administered on 10/13/16 19:38; Start at 21:00 Amino Acids/ Glycerin/ Electrolytes 1,000 ml @ 80 mls/hr [id number] IV Last administered on 10/14/16 05:48; Start 10/10/16 at 14:00 Midazolam HCl 100 ml @ As Directed STK-MED ONCE IV ; Start 10/10/16 at 16:07; Stop 10/10/16 at 16:08; Status DC Fentanyl Citrate 30 ml @ 0 mls/hr CONT PRN PRN IV PROTOCOL Last administered on 10/11/16 03:36; Start 10/10/16 at 16:30 Midazolam HCl 100 ml @ 0 mls/hr CONT PRN IV SEE I/O RECORD Last administered on 10/11/16 03:35; Start 10/10/16 at 16:30 Pamidronate Disodium 90 mg/ Sodium Chloride 250 ml @ 83.333 mls/ hr 1X ONCE IV Last administered on 10/10/16 17:29; Start 10/10/16 at 17:00; Stop at 19:59; Status DC Sodium Chloride 1,000 ml @ 125 mls/hr Q8H IV Last administered on 10/13/16 04: 48; Start 10/10/16 at 21:00; Stop 10/13/16 at 13:40; Status DC Epinephrine (S2 Racepinephrine) 0.5 ml 1X ONCE NEB Last administered on 07:55; Start 10/11/16 at 15:30; Stop 10/11/16 at 15:31; Status DC Lorazepam (Ativan) 0.5 mg PRN Q6HRS PRN IV ANXIETY / AGITATION Last administered on 10/11/16 15:39; Start 10/11/16 at 15:30 Lorazepam (Ativan) 0.25 mg PRN Q6HRS PRN IV ANXIETY / AGITATION; Start 10/11/16 at 15:30 Methylprednisolone Sodium Succinate (SOLU-Medrol 125MG VIAL) 60 mg Q6HRS IV Last administered on 10/14/16 11:17; Start 10/11/16 at 15:30 Amlodipine Besylate (Norvasc) 10 mg DAILY PO Last administered on 10/14/16 08: 47; Start 10/14/16 at 09:00 Amlodipine Besylate (Norvasc) 10 mg 1X ONCE PO Last administered on 10/13/16 23:44; Start 10/13/16 at 23:45; Stop 10/13/16 at 23:46; Status DC Docusate Sodium (Colace) 100 mg DAILY PO Last administered on 10/14/16 11:16; Start 10/14/16 at 11:00 Polyethylene Glycol (miraLAX PACKET) 17 gm PRN DAILY PRN PO CONSTIPATION; Start 10/14/16 at 10:00 Magnesium Hydroxide (Milk Of Magnesia) 2,400 mg PRN DAILY PRN PO CONSTIPATION; Start 10/14/16 at 10:00 Clonidine HCl (Catapres) 0.1 mg PRN Q1HR PRN PO HYPERTENSION, SEE COMMENTS; Start 10/14/16 at 10:00 Active Scripts Active No Active Prescriptions or Reported Medications Vitals/I & O Vital Sign - Last 24 Hours 10/13/16 10/13/16 10/13/16 10/13/16 12:00 12:00 12:25 13:00 Temp 97.5 97.5 Pulse 98 77 Resp 18 18 B/P (MAP) 168/98 (121) 130/74 (92) Pulse Ox 94 100 O2 Delivery Nasal Cannula Nasal Cannula Nasal Cannula Nasal Cannula O2 Flow Rate 2.0 2.0 2.0 2.0 10/13/16 10/13/16 10/13/16 10/13/16 14:06 14:45 15:00 15:30 Temp 97.9 97.9 Pulse 85 Resp 25 18 B/P (MAP) 138/79 (98) Pulse Ox 97 98 O2 Delivery Nasal Cannula Nasal Cannula Nasal Cannula O2 Flow Rate 3.0 2.0 3.0 10/13/16 10/13/16 10/13/16 10/13/16 17:46 18:46 19:00 19:35 Temp 97.0 97.0 Pulse 87 Resp 21 B/P (MAP) 152/92 (112) Pulse Ox 98 97 98 O2 Delivery Room Air Nasal Cannula Nasal Cannula Nasal Cannula O2 Flow Rate 3.0 2.0 3.0 10/13/16 10/13/16 10/13/16 10/13/16 19:39 20:00 23:00 23:44 Temp 97.0 97.0 Pulse 75 75 Resp 19 B/P (MAP) 174/95 (121) 175/91 Pulse Ox 98 96 O2 Delivery Nasal Cannula Nasal Cannula Nasal Cannula O2 Flow Rate 3.0 2.0 2.0 10/14/16 10/14/16 10/14/16 10/14/16 03:00 05:48 06:18 07:00 Temp 97.2 97.2 Pulse 73 Resp 17 B/P (MAP) 154/88 (110) 163/101 (121) Pulse Ox 96 96 96 O2 Delivery Nasal Cannula Nasal Cannula O2 Flow Rate 2.0 2.0 10/14/16 10/14/16 10/14/16 10/14/16 07:00 07:52 08:00 08:47 Temp 97.5 97.5 Pulse 89 89 Resp 22 B/P (MAP) 152/99 (116) 152/99 Pulse Ox 93 98 O2 Delivery Nasal Cannula Nasal Cannula Nasal Cannula O2 Flow Rate 2.0 3.0 2.0 10/14/16 10/14/16 10/14/16 10/14/16 08:49 09:19 10:55 11:17 Temp 97.7 97.7 Pulse 86 Resp 20 B/P (MAP) 125/89 (101) Pulse Ox 97 O2 Delivery Nasal Cannula Nasal Cannula Nasal Cannula Nasal Cannula O2 Flow Rate 2.0 2.0 2.0 Intake and Output 10/13/16 10/13/16 10/14/16 15:00 23:00 07:00 Intake Total 1581 ml 1600 ml Output Total 1000 ml Balance 581 ml 1600 ml PAUL ROJAS MD Oct 14, 2016 11:56
[2016-10-14] MEDS: ENOXAPARIN 40 MG/0.4 ML SYRINGE. SQ SCH (12:09)
[2016-10-14] MEDS: POLYETHYLENE GLYCOL 3350 17 GM PACKET. PO SCH ×2 (12:10→12:11)
[2016-10-14] MEDS ORDERED: DOCUSATE SODIUM 100 MG CAPSULE. PO SCH (12:30)
[2016-10-14 15:00] VITALS: BP 136/87
[2016-10-14 19:15] VITALS: BP 139/83
[2016-10-14] MEDS: FAMOTIDINE 20 MG/2 ML VIAL IVP SCH (20:38)
[2016-10-14] MEDS: guaiFENesin DM 200MG/20MG 10 ML SYRUP PO PRN (23:09)
[2016-10-14 23:13] VITALS: BP 145/87
[2016-10-15 03:30] VITALS: BP 148/79
[2016-10-15] MEDS: MORPHINE SULFATE 2 MG/ML DISP.SYRIN. IV PRN ×4 (03:47→23:08)
[2016-10-15] MEDS: AMINO AC 3%/ELECTROLYTE/GLYCER 1,000 ML IV SCH (05:46)
[2016-10-15] MEDS: methylPREDNISolone SOD SUCC PF 125 MG/2 ML VIAL. IV SCH ×4 (05:46→23:08)
[2016-10-15 07:00] VITALS: BP 147/88
[2016-10-15] MEDS: IPRATRPIUM/ALBUTEROL 0.5/2.5MG 3 ML NEBU. NEB SCH ×4 (07:48→19:28)
[2016-10-15 08:04] LABS: BASO % 0 % (0-3); EOS % 0 % (0-3); HEMATOCRIT 39.2 % (36.0-47.0); HEMOGLOBIN 12.8 g/dL (12.0-15.5); LYMPH # 1.1 x10^3/uL (1.0-4.8); LYMPH % 6 % (24-48); MEAN CORPUSCULAR HEMOGLOBIN 31 pg (25-35); MEAN CORPUSCULAR HGB CONC 33 g/dL (31-37); MEAN CORPUSCULAR VOLUME 95 fL (79-100); MONO % 8 % (0-9); NEUT % 86 % (31-73); PLATELET COUNT 328 x10^3/uL (140-400); RED BLOOD COUNT 4.12 x10^6/uL (3.50-5.40); RED CELL DISTRIBUTION WIDTH 13.3 % (11.5-14.5); WHITE BLOOD COUNT 17.2 x10^3/uL (4.0-11.0)
[2016-10-15 08:09] LABS: CALCIUM 8.8 mg/dL (8.5-10.1); CREATININE 0.6 mg/dL (0.6-1.0); GFR 124.2; POTASSIUM 3.7 mmol/L (3.5-5.1)
[2016-10-15] MEDS: guaiFENesin DM 200MG/20MG 10 ML SYRUP PO PRN ×2 (09:26→23:07)
[2016-10-15] MEDS: DOCUSATE SODIUM 100 MG CAPSULE. PO SCH (09:27)
[2016-10-15] MEDS: POLYETHYLENE GLYCOL 3350 17 GM PACKET. PO SCH (09:27)
[2016-10-15] MEDS: amLODIPine BESYLATE 10 MG TABLET PO SCH (09:27)
--- NOTE | 2016-10-15 09:34 | PDOC ---
PROGRESS NOTES Chief Complaint Chief Complaint 1. 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 Pleural effusion: neg cytology but suspect malignant 3. pulm nodules: stage 4 metasis 4. 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 Respir arrest at EGD: extubated successfully 10/12 6. SIRS: likely 2/2 viral URI 7. Leukocytosis 8. Malnutrition 8. Hypomagnesemia 9. CHF. compensated now (10/14) 10. abn TSH 11. smoker History of Present Illness History of Present Illness PLAN: Continue bowel regimen prn clonidine for high BP eating well. Palliative to revisit now we have definitive dx Heme onc for further recs - palliative chemo. Prognosis poor. DC planning based on pt wishes. Vitals Vitals Vital Signs Date Time Temp Pulse Resp B/P (MAP) Pulse Ox O2 Delivery O2 Flow Rate FiO2 10/15/16 09:28 Nasal Cannula 10/15/16 09:27 74 147/88 10/15/16 07:49 99 3.0 10/15/16 07:00 97.9 20 97.9 Physical Exam General: Alert, Oriented X3, Cooperative, No acute distress Heart: Regular rate, No murmurs Lungs: Other (decreased BS in LLL) Abdomen: Normal bowel sounds, Soft, No masses Extremities: No cyanosis, No edema Skin: No rashes, No breakdown Labs LABS Laboratory Tests Test 10/15/16 07:25 White Blood Count 17.2 x10^3/uL (4.0-11.0) Red Blood Count 4.12 x10^6/uL (3.50-5.40) Hemoglobin 12.8 g/dL (12.0-15.5) Hematocrit 39.2 % (36.0-47.0) Mean Corpuscular Volume 95 fL (79-100) Mean Corpuscular Hemoglobin 31 pg (25-35) Mean Corpuscular Hemoglobin Concent 33 g/dL (31-37) Red Cell Distribution Width 13.3 % (11.5-14.5) Platelet Count 328 x10^3/uL (140-400) Neutrophils (%) (Auto) 86 % (31-73) Lymphocytes (%) (Auto) 6 % (24-48) Monocytes (%) (Auto) 8 % (0-9) Eosinophils (%) (Auto) 0 % (0-3) Basophils (%) (Auto) 0 % (0-3) Neutrophils # (Auto) 14.8 x10^3uL (1.8-7.7) Lymphocytes # (Auto) 1.1 x10^3/uL (1.0-4.8) Monocytes # (Auto) 1.3 x10^3/uL (0.0-1.1) Eosinophils # (Auto) 0.0 x10^3/uL (0.0-0.7) Basophils # (Auto) 0.0 x10^3/uL (0.0-0.2) Sodium Level 142 mmol/L (136-145) Potassium Level 3.7 mmol/L (3.5-5.1) Chloride Level 104 mmol/L (98-107) Carbon Dioxide Level 32 mmol/L (21-32) Anion Gap 6 (6-14) Blood Urea Nitrogen 13 mg/dL (7-20) Creatinine 0.6 mg/dL (0.6-1.0) Estimated GFR (Cockcroft-Gault) 124.2 Glucose Level 138 mg/dL (70-99) Calcium Level 8.8 mg/dL (8.5-10.1) Comment Review of Relevant I have reviewed the following items fausto (where applicable) has been applied. Labs Laboratory Tests Test 10/14/16 04:25 10/15/16 07:25 White Blood Count 19.9 x10^3/uL (4.0-11.0) 17.2 x10^3/uL (4.0-11.0) Red Blood Count 4.13 x10^6/uL (3.50-5.40) 4.12 x10^6/uL (3.50-5.40) Hemoglobin 12.9 g/dL (12.0-15.5) 12.8 g/dL (12.0-15.5) Hematocrit 39.4 % (36.0-47.0) 39.2 % (36.0-47.0) Mean Corpuscular Volume 95 fL (79-100) 95 fL (79-100) Mean Corpuscular Hemoglobin 31 pg (25-35) 31 pg (25-35) Mean Corpuscular Hemoglobin Concent 33 g/dL (31-37) 33 g/dL (31-37) Red Cell Distribution Width 13.2 % (11.5-14.5) 13.3 % (11.5-14.5) Platelet Count 324 x10^3/uL (140-400) 328 x10^3/uL (140-400) Neutrophils (%) (Auto) 90 % (31-73) 86 % (31-73) Lymphocytes (%) (Auto) 4 % (24-48) 6 % (24-48) Monocytes (%) (Auto) 6 % (0-9) 8 % (0-9) Eosinophils (%) (Auto) 0 % (0-3) 0 % (0-3) Basophils (%) (Auto) 0 % (0-3) 0 % (0-3) Neutrophils # (Auto) 17.9 x10^3uL (1.8-7.7) 14.8 x10^3uL (1.8-7.7) Lymphocytes # (Auto) 0.9 x10^3/uL (1.0-4.8) 1.1 x10^3/uL (1.0-4.8) Monocytes # (Auto) 1.1 x10^3/uL (0.0-1.1) 1.3 x10^3/uL (0.0-1.1) Eosinophils # (Auto) 0.0 x10^3/uL (0.0-0.7) 0.0 x10^3/uL (0.0-0.7) Basophils # (Auto) 0.0 x10^3/uL (0.0-0.2) 0.0 x10^3/uL (0.0-0.2) Segmented Neutrophils % 86 % (35-66) Band Neutrophils % 1 % (0-9) Lymphocytes % 11 % (24-48) Monocytes % 1 % (0-10) Basophils % 1 % (0-3) Platelet Estimate Adequate (ADEQUATE) Sodium Level 141 mmol/L (136-145) 142 mmol/L (136-145) Potassium Level 3.5 mmol/L (3.5-5.1) 3.7 mmol/L (3.5-5.1) Chloride Level 104 mmol/L (98-107) 104 mmol/L (98-107) Carbon Dioxide Level 30 mmol/L (21-32) 32 mmol/L (21-32) Anion Gap 7 (6-14) 6 (6-14) Blood Urea Nitrogen 12 mg/dL (7-20) 13 mg/dL (7-20) Creatinine 0.6 mg/dL (0.6-1.0) 0.6 mg/dL (0.6-1.0) Estimated GFR (Cockcroft-Gault) 124.2 124.2 Glucose Level 158 mg/dL (70-99) 138 mg/dL (70-99) Calcium Level 8.8 mg/dL (8.5-10.1) 8.8 mg/dL (8.5-10.1) Laboratory Tests Test 10/15/16 07:25 White Blood Count 17.2 x10^3/uL (4.0-11.0) Red Blood Count 4.12 x10^6/uL (3.50-5.40) Hemoglobin 12.8 g/dL (12.0-15.5) Hematocrit 39.2 % (36.0-47.0) Mean Corpuscular Volume 95 fL (79-100) Mean Corpuscular Hemoglobin 31 pg (25-35) Mean Corpuscular Hemoglobin Concent 33 g/dL (31-37) Red Cell Distribution Width 13.3 % (11.5-14.5) Platelet Count 328 x10^3/uL (140-400) Neutrophils (%) (Auto) 86 % (31-73) Lymphocytes (%) (Auto) 6 % (24-48) Monocytes (%) (Auto) 8 % (0-9) Eosinophils (%) (Auto) 0 % (0-3) Basophils (%) (Auto) 0 % (0-3) Neutrophils # (Auto) 14.8 x10^3uL (1.8-7.7) Lymphocytes # (Auto) 1.1 x10^3/uL (1.0-4.8) Monocytes # (Auto) 1.3 x10^3/uL (0.0-1.1) Eosinophils # (Auto) 0.0 x10^3/uL (0.0-0.7) Basophils # (Auto) 0.0 x10^3/uL (0.0-0.2) Sodium Level 142 mmol/L (136-145) Potassium Level 3.7 mmol/L (3.5-5.1) Chloride Level 104 mmol/L (98-107) Carbon Dioxide Level 32 mmol/L (21-32) Anion Gap 6 (6-14) Blood Urea Nitrogen 13 mg/dL (7-20) Creatinine 0.6 mg/dL (0.6-1.0) Estimated GFR (Cockcroft-Gault) 124.2 Glucose Level 138 mg/dL (70-99) Calcium Level 8.8 mg/dL (8.5-10.1) Microbiology 10/08/16 Gram Stain - Final, Complete 10/07/16 Urine Culture - Final, Complete 10/07/16 Urine Culture Result 1 (PERI) - Final, Complete Medications Current Medications Albuterol/ Ipratropium (Duoneb) 3 ml 1X ONCE NEB Last administered on 14:01; Start 10/07/16 at 13:30; Stop 10/07/16 at 13:31; Status DC Acetaminophen (Tylenol) 650 mg PRN Q6HRS PRN PO FEVER; Start 10/07/16 at 15:45 Ondansetron HCl (Zofran) 4 mg PRN Q6HRS PRN IV NAUSEA/VOMITING Last administered on 10/13/16 07:52; Start 10/07/16 at 15:45 Morphine Sulfate 2 mg PRN Q2HR PRN IV PAIN Last administered on 10/15/16 09:28 ; Start 10/07/16 at 15:45 Tramadol HCl (Ultram) 50 mg PRN Q6HRS PRN PO PAIN Last administered on 17:46; Start 10/07/16 at 15:45 Hydralazine HCl (Apresoline) 10 mg PRN Q4HRS PRN IVP ELEVATED BP, SEE COMMENTS ; Start 10/07/16 at 15:45 Docusate Sodium (Colace) 100 mg PRN DAILY PRN PO CONSTIPATION; Start 10/07/16 at 15:45; Stop 10/14/16 at 11:58; Status DC Albuterol/ Ipratropium (Duoneb) 3 ml RTQID NEB Last administered on 10/15/16 07 :48; Start 10/07/16 at 16:00 Albuterol Sulfate (Ventolin Neb Soln) 2.5 mg PRN Q2HR PRN NEB SHORTNESS OF BREATH; Start 10/07/16 at 15:45 Guaifenesin (Mucinex) 600 mg BID PO Last administered on 10/09/16 20:58; Start 10/07/16 at 21:00; Stop 10/13/16 at 11:49; Status DC Nicotine (Nicoderm Cq 7mg) 1 patch PRN DAILY PRN TD SMOKING CESSATION; Start at 15:45 Heparin Sodium (Porcine) (Heparin Sq) 5,000 unit Q8HRS SQ Last administered on 10/07/16 21:17; Start 10/07/16 at 22:00; Stop 10/07/16 at 23:07; Status DC Throat Lozenges (Cepacol Sore Throat Lozenge) 1 moises PRN Q2HRS PRN PO SORE THROAT Last administered on 10/13/16 23:44; Start 10/07/16 at 15:45 Magnesium Sulfate/ Dextrose 50 ml @ 25 mls/hr 1X ONCE IV Last administered on 10/07/16 16:03; Start 10/07/16 at 15:45; Stop 10/07/16 at 17:44; Status DC Lidocaine/Sodium Bicarbonate (Buffered Lidocaine 1%) 20 ml STK-MED ONCE IJ ; Start 10/08/16 at 12:39; Stop 10/08/16 at 12:40; Status DC Midazolam HCl (Versed) 5 mg STK-MED ONCE .ROUTE ; Start 10/08/16 at 13:05; Stop 10/08/16 at 13:06; Status DC Fentanyl Citrate (Fentanyl 5ml Vial) 250 mcg STK-MED ONCE .ROUTE ; Start at 13:05; Stop 10/08/16 at 13:06; Status DC Lidocaine/Sodium Bicarbonate (Buffered Lidocaine 1%) 9 ml 1X ONCE IJ Last administered on 10/08/16 13:41; Start 10/08/16 at 13:30; Stop 10/08/16 at 13:32 ; Status DC Midazolam HCl (Versed) 1 mg 1X ONCE IV Last administered on 10/08/16 13:42; Start 10/08/16 at 13:30; Stop 10/08/16 at 13:32; Status DC Fentanyl Citrate (Fentanyl 5ml Vial) 50 mcg 1X ONCE IV Last administered on 13:42; Start 10/08/16 at 13:30; Stop 10/08/16 at 13:32; Status DC Iohexol (Omnipaque 300 Mg/ml) 75 ml 1X ONCE IV Last administered on 10/09/16 11:58; Start 10/09/16 at 11:45; Stop 10/09/16 at 11:46; Status DC Info (Do NOT chart on this entry -- for MONITORING) 1 each PRN DAILY PRN MC SEE COMMENTS; Start 10/09/16 at 11:45; Stop 10/11/16 at 11:44; Status DC Diphenhydramine HCl (Benadryl) 50 mg 1X ONCE IVP Last administered on 18:24; Start 10/09/16 at 18:15; Stop 10/09/16 at 18:16; Status DC Methylprednisolone Sodium Succinate (SOLU-Medrol 40MG VIAL) 40 mg 1X ONCE IV Last administered on 10/09/16 18:24; Start 10/09/16 at 18:15; Stop 10/09/16 at 18:16; Status DC Midazolam HCl (Versed) 2 mg PRN 1X PRN IV PRIOR TO PROCEDURE; Start 10/10/16 at 09:45; Stop 10/11/16 at 09:44; Status DC Fentanyl Citrate (Fentanyl 2ml Vial) 25 mcg PRN Q5MIN PRN IV X 2 DOSES FOR PAIN ; Start 10/10/16 at 09:45; Stop 10/11/16 at 09:44; Status DC Fentanyl Citrate (Fentanyl 2ml Vial) 50 mcg PRN Q5MIN PRN IV X 2 DOSES FOR PAIN ; Start 10/10/16 at 09:45; Stop 10/11/16 at 09:44; Status DC Ringer's Solution 1,000 ml @ 125 mls/hr Q8H IV ; Start 10/10/16 at 09:43; Stop 10/10/16 at 21:42; Status DC Lidocaine HCl 2 ml 1X PRN PRN ID IV START; Start 10/10/16 at 09:45; Stop at 09:44; Status DC Propofol 40 ml @ As Directed STK-MED ONCE IV ; Start 10/10/16 at 10:44; Stop at 10:45; Status DC Lidocaine HCl (Lidocaine Pf 2% Vial) 5 ml STK-MED ONCE .ROUTE ; Start 10/10/16 at 10:44; Stop 10/10/16 at 10:45; Status DC Propofol 100 ml @ As Directed STK-MED ONCE IV ; Start 10/10/16 at 11:42; Stop 10/10/16 at 11:43; Status DC Midazolam HCl 100 ml @ As Directed STK-MED ONCE IV ; Start 10/10/16 at 12:17; Stop 10/10/16 at 12:18; Status DC Enoxaparin Sodium (Lovenox 40mg Syringe) 40 mg Q24H SQ ; Start 10/11/16 at 10:00 ; Stop 10/11/16 at 10:00; Status DC Famotidine (Pepcid) 20 mg QHS IVP Last administered on 10/14/16 20:38; Start at 21:00 Amino Acids/ Glycerin/ Electrolytes 1,000 ml @ 80 mls/hr [id number] IV Last administered on 10/15/16 05:46; Start 10/10/16 at 14:00 Midazolam HCl 100 ml @ As Directed STK-MED ONCE IV ; Start 10/10/16 at 16:07; Stop 10/10/16 at 16:08; Status DC Fentanyl Citrate 30 ml @ 0 mls/hr CONT PRN PRN IV PROTOCOL Last administered on 10/11/16 03:36; Start 10/10/16 at 16:30; Stop 10/14/16 at 11:58; Status DC Midazolam HCl 100 ml @ 0 mls/hr CONT PRN IV SEE I/O RECORD Last administered on 10/11/16 03:35; Start 10/10/16 at 16:30; Stop 10/14/16 at 11:58; Status DC Pamidronate Disodium 90 mg/ Sodium Chloride 250 ml @ 83.333 mls/ hr 1X ONCE IV Last administered on 10/10/16 17:29; Start 10/10/16 at 17:00; Stop at 19:59; Status DC Sodium Chloride 1,000 ml @ 125 mls/hr Q8H IV Last administered on 10/13/16 04: 48; Start 10/10/16 at 21:00; Stop 10/13/16 at 13:40; Status DC Epinephrine (S2 Racepinephrine) 0.5 ml 1X ONCE NEB Last administered on 07:55; Start 10/11/16 at 15:30; Stop 10/11/16 at 15:31; Status DC Lorazepam (Ativan) 0.5 mg PRN Q6HRS PRN IV ANXIETY / AGITATION Last administered on 10/11/16 15:39; Start 10/11/16 at 15:30 Lorazepam (Ativan) 0.25 mg PRN Q6HRS PRN IV ANXIETY / AGITATION; Start 10/11/16 at 15:30 Methylprednisolone Sodium Succinate (SOLU-Medrol 125MG VIAL) 60 mg Q6HRS IV Last administered on 10/15/16 05:46; Start 10/11/16 at 15:30 Amlodipine Besylate (Norvasc) 10 mg DAILY PO Last administered on 10/15/16 09: 27; Start 10/14/16 at 09:00 Amlodipine Besylate (Norvasc) 10 mg 1X ONCE PO Last administered on 10/13/16 23:44; Start 10/13/16 at 23:45; Stop 10/13/16 at 23:46; Status DC Docusate Sodium (Colace) 100 mg DAILY PO Last administered on 10/15/16 09:27; Start 10/14/16 at 11:00 Polyethylene Glycol (miraLAX PACKET) 17 gm PRN DAILY PRN PO CONSTIPATION; Start 10/14/16 at 10:00 Magnesium Hydroxide (Milk Of Magnesia) 2,400 mg PRN DAILY PRN PO CONSTIPATION; Start 10/14/16 at 10:00 Clonidine HCl (Catapres) 0.1 mg PRN Q1HR PRN PO HYPERTENSION, SEE COMMENTS; Start 10/14/16 at 10:00 Guaifenesin (Robitussin Dm) 10 ml PRN Q6HRS PRN PO COUGH Last administered on 09:26; Start 10/14/16 at 12:00 Docusate Sodium (Colace) 100 mg DAILY PO ; Start 10/14/16 at 12:30; Status UNV Polyethylene Glycol (miraLAX PACKET) 17 gm DAILY PO Last administered on 09:27; Start 10/14/16 at 12:30 Magnesium Hydroxide (Milk Of Magnesia) 2,400 mg PRN DAILY PRN PO CONSTIPATION; Start 10/14/16 at 12:00; Stop 10/14/16 at 12:00; Status DC Enoxaparin Sodium (Lovenox 40mg Syringe) 40 mg Q24H SQ Last administered on 10/14 12:09; Start 10/14/16 at 13:00 Active Scripts Active No Active Prescriptions or Reported Medications Vitals/I & O Vital Sign - Last 24 Hours 10/14/16 10/14/16 10/14/16 10/14/16 10:55 11:17 12:10 15:00 Temp 97.7 97.8 97.7 97.8 Pulse 86 87 Resp 20 20 B/P (MAP) 125/89 (101) 136/87 (103) Pulse Ox 97 98 98 O2 Delivery Nasal Cannula Nasal Cannula Nasal Cannula Nasal Cannula O2 Flow Rate 2.0 3.0 2.0 10/14/16 10/14/16 10/14/16 10/14/16 15:33 18:55 19:10 19:15 Temp 97.7 97.7 Pulse 93 Resp 20 B/P (MAP) 139/83 (101) Pulse Ox 98 95 O2 Delivery Nasal Cannula Nasal Cannula Nasal Cannula Room Air O2 Flow Rate 3.0 3.0 2.0 10/14/16 10/14/16 10/15/16 10/15/16 23:09 23:13 03:30 03:47 Temp 96.9 97.7 96.9 97.7 Pulse 80 76 Resp 20 20 18 20 B/P (MAP) 145/87 (106) 148/79 (102) Pulse Ox 95 96 93 96 O2 Delivery Nasal Cannula Nasal Cannula Nasal Cannula Nasal Cannula O2 Flow Rate 2.0 2.0 2.0 2.0 10/15/16 10/15/16 10/15/16 10/15/16 04:07 07:00 07:49 09:27 Temp 97.9 97.9 Pulse 74 74 Resp 18 20 B/P (MAP) 147/88 (107) 147/88 Pulse Ox 96 97 99 O2 Delivery Nasal Cannula Nasal Cannula Nasal Cannula O2 Flow Rate 2.0 2.0 3.0 10/15/16 09:28 O2 Delivery Nasal Cannula Intake and Output 10/14/16 10/14/16 10/15/16 15:00 23:00 07:00 Intake Total 500 ml 1000 ml 1240 ml Output Total 650 ml Balance 500 ml 350 ml 1240 ml ASYA CASTAÑEDA MD Oct 15, 2016 09:34
--- NOTE | 2016-10-15 09:43 | PDOC ---
Subjective: Subjective: Onc f/u- Esophageal cancer Pt appears overwhelmed with new as if it is brand new to her each time I see her. Rarely remembers previous conversations Wants to live for years Does not feel well enough for DC today but no specific complaints Objective: Vital Signs: Vital Signs Date Time Temp Pulse Resp B/P (MAP) Pulse Ox O2 Delivery O2 Flow Rate FiO2 10/15/16 09:28 Nasal Cannula 10/15/16 09:27 74 147/88 10/15/16 07:49 99 3.0 10/15/16 07:00 97.9 20 97.9 Physical Exam: Extremities: No edema General: Alert, Oriented X3, No acute distress Lungs: Other (no respiratory distress) Neuro: Other (?memory deficits) Psych/Mental Status: Other (depressed) Labs/Imaging: Path reviewed confirming esophageal SCCa CXR- stable effusion Assessment/Plan A/P: 1. Esophageal squamous cell carcinoma, likely stage IV given pleural nodules and large reaccumulating left pleural effusion (though cytology was neg) Pt has no recollection of previous discussions about incurability of situation. Wants to live for years, prognosis likely < 6 mth with stage IV disease. Though palliative chemo possibly a tx option, currently not able to give with no insurance though she states she has applied. Discussed again today that palliative chemo generally brings great toxicity with possible benefit of a few months. Palliative care following; I still cannot grasp that she truly understands or remembers what we discuss. I provided my contact info to reassess if she does obtain insurance. Would likely repeat thoracentesis and need pleural nodule biopsy to confirm suspected stage IV status at that time. Overall hospice seems best option but pt remains resistant to this. Please call with any further questions. KRISTIE WILLIS DO Oct 15, 2016 09:43
--- NOTE | 2016-10-15 10:39 | RAD ---
Portable chest, 10/15/2016: History: Shortness of breath Comparison is made to yesterday's exam. The heart is enlarged. The pulmonary vascularity is normal. There is moderate ongoing infiltrate in the left mid and lower chest with pleural fluid and pleural thickening. These findings are unchanged. There is persistent minimal blunting of the right lateral costophrenic angle compatible with a small amount of right-sided pleural fluid. No underlying right pulmonary infiltrate is seen. No new abnormality is detected. IMPRESSION: 1. Unchanged moderate left chest pleural-parenchymal opacities. 2. Small ongoing right pleural effusion.
[2016-10-15 11:00] VITALS: BP 128/72
--- NOTE | 2016-10-15 11:18 | PDOC ---
Subjective: Subjective: Says has talked w/ Pat re: Hospice, undecided. Swallowing okay. Objective: Objective: PATHOLOGY REPORT * * * * * * * * FINAL DIAGNOSIS: Esophageal biopsy, esophageal mass at 30 cm: - Invasive squamous cell carcinoma, moderately differentiated. Per RN - tolerating regular diet. Vital Signs: Vital Signs Date Time Temp Pulse Resp B/P (MAP) Pulse Ox O2 Delivery O2 Flow Rate FiO2 10/15/16 09:58 99 Nasal Cannula 2.0 10/15/16 09:27 74 147/88 10/15/16 07:00 97.9 20 97.9 Imaging: CXR 10/15/16 IMPRESSION: 1. Unchanged moderate left chest pleural-parenchymal opacities. 2. Small ongoing right pleural effusion. EGD 10/10/16: mid esophageal mass s/p bx malignancy 30-35 cm with 70% circumference involvement, required intubation for apneic period PE: GEN: NAD LUNGS: diminished, nasal cannula HEART: RRR ABD: NABS, S/ND/NT NEURO/PSYCH: A & O 3 A/P: Esophageal squamous cell carcinoma, likely stage IV -has seen oncology and palliative care, does not grasp diagnosis/outlook Pleural effusion -s/p thoracentesis last week -- Continue palliative care discussion. SOWMYA BARON Oct 15, 2016 11:18
[2016-10-15] MEDS: ENOXAPARIN 40 MG/0.4 ML SYRINGE. SQ SCH (12:19)
[2016-10-15 15:00] VITALS: BP 139/76
[2016-10-15 19:00] VITALS: BP_SYST 133; BP_SYST 146; BP_SYST 148; BP_DIAS 100; BP_DIAS 85; BP_DIAS 86
[2016-10-15] MEDS ORDERED: FAMOTIDINE 20 MG TABLET. PO SCH (21:00)
[2016-10-15 23:00] VITALS: BP 135/93
[2016-10-16 03:00] VITALS: BP 136/95
[2016-10-16] MEDS: methylPREDNISolone SOD SUCC PF 125 MG/2 ML VIAL. IV SCH ×2 (05:39→11:42)
[2016-10-16] MEDS: MORPHINE SULFATE 2 MG/ML DISP.SYRIN. IV PRN ×2 (05:44→09:07)
[2016-10-16 06:18] LABS: BASO % 0 % (0-3); EOS % 0 % (0-3); HEMATOCRIT 38.5 % (36.0-47.0); HEMOGLOBIN 12.9 g/dL (12.0-15.5); LYMPH # 1.2 x10^3/uL (1.0-4.8); LYMPH % 7 % (24-48); MEAN CORPUSCULAR HEMOGLOBIN 31 pg (25-35); MEAN CORPUSCULAR HGB CONC 34 g/dL (31-37); MEAN CORPUSCULAR VOLUME 93 fL (79-100); MONO % 7 % (0-9); NEUT % 87 % (31-73); PLATELET COUNT 359 x10^3/uL (140-400); RED BLOOD COUNT 4.13 x10^6/uL (3.50-5.40); RED CELL DISTRIBUTION WIDTH 13.3 % (11.5-14.5)
[2016-10-16 06:26] LABS: CALCIUM 8.8 mg/dL (8.5-10.1); CREATININE 0.7 mg/dL (0.6-1.0); POTASSIUM 4.2 mmol/L (3.5-5.1)
[2016-10-16 07:00] VITALS: BP 130/82
[2016-10-16] MEDS: IPRATRPIUM/ALBUTEROL 0.5/2.5MG 3 ML NEBU. NEB SCH ×2 (08:08→11:23)
[2016-10-16] MEDS: DOCUSATE SODIUM 100 MG CAPSULE. PO SCH (08:26)
[2016-10-16] MEDS: POLYETHYLENE GLYCOL 3350 17 GM PACKET. PO SCH (08:27)
[2016-10-16] MEDS: amLODIPine BESYLATE 10 MG TABLET PO SCH (08:27)
--- NOTE | 2016-10-16 10:35 | PDOC ---
Subjective: Subjective: Remains undecided about Hospice, biggest concern seems to be if she can go home w/ O2. Objective: Objective: Reviewed other notes and d/w RN. No DC plans yet. Vital Signs: Vital Signs Date Time Temp Pulse Resp B/P (MAP) Pulse Ox O2 Delivery O2 Flow Rate FiO2 10/16/16 10:10 98 Nasal Cannula 2.0 10/16/16 08:27 77 130/82 10/16/16 07:00 97.6 18 97.6 Labs: Laboratory Tests Test 10/16/16 05:50 White Blood Count 18.0 x10^3/uL Red Blood Count 4.13 x10^6/uL Hemoglobin 12.9 g/dL Hematocrit 38.5 % Mean Corpuscular Volume 93 fL Mean Corpuscular Hemoglobin 31 pg Mean Corpuscular Hemoglobin Concent 34 g/dL Red Cell Distribution Width 13.3 % Platelet Count 359 x10^3/uL Neutrophils (%) (Auto) 87 % Lymphocytes (%) (Auto) 7 % Monocytes (%) (Auto) 7 % Eosinophils (%) (Auto) 0 % Basophils (%) (Auto) 0 % Neutrophils # (Auto) 15.6 x10^3uL Lymphocytes # (Auto) 1.2 x10^3/uL Monocytes # (Auto) 1.2 x10^3/uL Eosinophils # (Auto) 0.0 x10^3/uL Basophils # (Auto) 0.0 x10^3/uL Sodium Level 143 mmol/L Potassium Level 4.2 mmol/L Chloride Level 103 mmol/L Carbon Dioxide Level 33 mmol/L Anion Gap 7 Blood Urea Nitrogen 12 mg/dL Creatinine 0.7 mg/dL Estimated GFR (Cockcroft-Gault) 104.0 Glucose Level 139 mg/dL Calcium Level 8.8 mg/dL PE: GEN: NAD LUNGS: decreased, nasal cannula HEART: RRR ABD: S/ND/NT NEURO/PSYCH: A & O 3 A/P: Esophageal squamous cell carcinoma, likely stage IV -present w/ pleural effusion, s/p thoracentesis, s/p EGD w/ biopsy and apneic period, was intubated briefly in ICU -has seen oncology (discussed palliative chemo, currently not an option w/o insurance) -has had family meeting w/ palliative care (at first requested DNR/DNI, then family wanted full code) -has seen SW (discussed need for O2 at DC, also advised Hospice possibly but on a erika basis, pt undecided/ambivalent) -- Still undecided (?confused/poor memory) re: next step. No new GI recs. Recommend Hospice. SOWMYA BARON Oct 16, 2016 10:35
[2016-10-16 11:00] VITALS: BP 130/77
--- NOTE | 2016-10-16 12:02 | PDOC ---
PROGRESS NOTES Chief Complaint Chief Complaint 1. 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 Pleural effusion: neg cytology but suspect malignant 3. pulm nodules: stage 4 metasis 4. 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 Respir arrest at EGD: extubated successfully 10/12 6. SIRS: likely 2/2 viral URI 7. Leukocytosis 8. Malnutrition 8. Hypomagnesemia 9. CHF. compensated now (10/14) 10. abn TSH 11. smoker History of Present Illness History of Present Illness PLAN: Continue bowel regimen prn clonidine for high BP eating well. Pt yet to make decision about DC planning. out pt follow up with oncology as out pt. GI and oncology follow up. Vitals Vitals Vital Signs Date Time Temp Pulse Resp B/P (MAP) Pulse Ox O2 Delivery O2 Flow Rate FiO2 10/16/16 11:24 Room Air 10/16/16 11:00 97.8 81 18 130/77 (94) 93 2.0 97.8 Physical Exam General: Alert, Oriented X3, No acute distress Heart: Regular rate, No murmurs Lungs: Other (decreased BS in LLL) Abdomen: Normal bowel sounds, Soft, No masses Extremities: No edema Skin: No rashes, No breakdown Labs LABS Laboratory Tests Test 10/16/16 05:50 White Blood Count 18.0 x10^3/uL (4.0-11.0) Red Blood Count 4.13 x10^6/uL (3.50-5.40) Hemoglobin 12.9 g/dL (12.0-15.5) Hematocrit 38.5 % (36.0-47.0) Mean Corpuscular Volume 93 fL (79-100) Mean Corpuscular Hemoglobin 31 pg (25-35) Mean Corpuscular Hemoglobin Concent 34 g/dL (31-37) Red Cell Distribution Width 13.3 % (11.5-14.5) Platelet Count 359 x10^3/uL (140-400) Neutrophils (%) (Auto) 87 % (31-73) Lymphocytes (%) (Auto) 7 % (24-48) Monocytes (%) (Auto) 7 % (0-9) Eosinophils (%) (Auto) 0 % (0-3) Basophils (%) (Auto) 0 % (0-3) Neutrophils # (Auto) 15.6 x10^3uL (1.8-7.7) Lymphocytes # (Auto) 1.2 x10^3/uL (1.0-4.8) Monocytes # (Auto) 1.2 x10^3/uL (0.0-1.1) Eosinophils # (Auto) 0.0 x10^3/uL (0.0-0.7) Basophils # (Auto) 0.0 x10^3/uL (0.0-0.2) Sodium Level 143 mmol/L (136-145) Potassium Level 4.2 mmol/L (3.5-5.1) Chloride Level 103 mmol/L (98-107) Carbon Dioxide Level 33 mmol/L (21-32) Anion Gap 7 (6-14) Blood Urea Nitrogen 12 mg/dL (7-20) Creatinine 0.7 mg/dL (0.6-1.0) Estimated GFR (Cockcroft-Gault) 104.0 Glucose Level 139 mg/dL (70-99) Calcium Level 8.8 mg/dL (8.5-10.1) Comment Review of Relevant I have reviewed the following items fausto (where applicable) has been applied. Labs Laboratory Tests Test 10/15/16 07:25 10/16/16 05:50 White Blood Count 17.2 x10^3/uL (4.0-11.0) 18.0 x10^3/uL (4.0-11.0) Red Blood Count 4.12 x10^6/uL (3.50-5.40) 4.13 x10^6/uL (3.50-5.40) Hemoglobin 12.8 g/dL (12.0-15.5) 12.9 g/dL (12.0-15.5) Hematocrit 39.2 % (36.0-47.0) 38.5 % (36.0-47.0) Mean Corpuscular Volume 95 fL (79-100) 93 fL (79-100) Mean Corpuscular Hemoglobin 31 pg (25-35) 31 pg (25-35) Mean Corpuscular Hemoglobin Concent 33 g/dL (31-37) 34 g/dL (31-37) Red Cell Distribution Width 13.3 % (11.5-14.5) 13.3 % (11.5-14.5) Platelet Count 328 x10^3/uL (140-400) 359 x10^3/uL (140-400) Neutrophils (%) (Auto) 86 % (31-73) 87 % (31-73) Lymphocytes (%) (Auto) 6 % (24-48) 7 % (24-48) Monocytes (%) (Auto) 8 % (0-9) 7 % (0-9) Eosinophils (%) (Auto) 0 % (0-3) 0 % (0-3) Basophils (%) (Auto) 0 % (0-3) 0 % (0-3) Neutrophils # (Auto) 14.8 x10^3uL (1.8-7.7) 15.6 x10^3uL (1.8-7.7) Lymphocytes # (Auto) 1.1 x10^3/uL (1.0-4.8) 1.2 x10^3/uL (1.0-4.8) Monocytes # (Auto) 1.3 x10^3/uL (0.0-1.1) 1.2 x10^3/uL (0.0-1.1) Eosinophils # (Auto) 0.0 x10^3/uL (0.0-0.7) 0.0 x10^3/uL (0.0-0.7) Basophils # (Auto) 0.0 x10^3/uL (0.0-0.2) 0.0 x10^3/uL (0.0-0.2) Sodium Level 142 mmol/L (136-145) 143 mmol/L (136-145) Potassium Level 3.7 mmol/L (3.5-5.1) 4.2 mmol/L (3.5-5.1) Chloride Level 104 mmol/L (98-107) 103 mmol/L (98-107) Carbon Dioxide Level 32 mmol/L (21-32) 33 mmol/L (21-32) Anion Gap 6 (6-14) 7 (6-14) Blood Urea Nitrogen 13 mg/dL (7-20) 12 mg/dL (7-20) Creatinine 0.6 mg/dL (0.6-1.0) 0.7 mg/dL (0.6-1.0) Estimated GFR (Cockcroft-Gault) 124.2 104.0 Glucose Level 138 mg/dL (70-99) 139 mg/dL (70-99) Calcium Level 8.8 mg/dL (8.5-10.1) 8.8 mg/dL (8.5-10.1) Laboratory Tests Test 10/16/16 05:50 White Blood Count 18.0 x10^3/uL (4.0-11.0) Red Blood Count 4.13 x10^6/uL (3.50-5.40) Hemoglobin 12.9 g/dL (12.0-15.5) Hematocrit 38.5 % (36.0-47.0) Mean Corpuscular Volume 93 fL (79-100) Mean Corpuscular Hemoglobin 31 pg (25-35) Mean Corpuscular Hemoglobin Concent 34 g/dL (31-37) Red Cell Distribution Width 13.3 % (11.5-14.5) Platelet Count 359 x10^3/uL (140-400) Neutrophils (%) (Auto) 87 % (31-73) Lymphocytes (%) (Auto) 7 % (24-48) Monocytes (%) (Auto) 7 % (0-9) Eosinophils (%) (Auto) 0 % (0-3) Basophils (%) (Auto) 0 % (0-3) Neutrophils # (Auto) 15.6 x10^3uL (1.8-7.7) Lymphocytes # (Auto) 1.2 x10^3/uL (1.0-4.8) Monocytes # (Auto) 1.2 x10^3/uL (0.0-1.1) Eosinophils # (Auto) 0.0 x10^3/uL (0.0-0.7) Basophils # (Auto) 0.0 x10^3/uL (0.0-0.2) Sodium Level 143 mmol/L (136-145) Potassium Level 4.2 mmol/L (3.5-5.1) Chloride Level 103 mmol/L (98-107) Carbon Dioxide Level 33 mmol/L (21-32) Anion Gap 7 (6-14) Blood Urea Nitrogen 12 mg/dL (7-20) Creatinine 0.7 mg/dL (0.6-1.0) Estimated GFR (Cockcroft-Gault) 104.0 Glucose Level 139 mg/dL (70-99) Calcium Level 8.8 mg/dL (8.5-10.1) Microbiology 10/08/16 Gram Stain - Final, Complete 10/07/16 Urine Culture - Final, Complete 10/07/16 Urine Culture Result 1 (PERI) - Final, Complete Medications Current Medications Albuterol/ Ipratropium (Duoneb) 3 ml 1X ONCE NEB Last administered on 14:01; Start 10/07/16 at 13:30; Stop 10/07/16 at 13:31; Status DC Acetaminophen (Tylenol) 650 mg PRN Q6HRS PRN PO FEVER; Start 10/07/16 at 15:45 Ondansetron HCl (Zofran) 4 mg PRN Q6HRS PRN IV NAUSEA/VOMITING Last administered on 10/13/16 07:52; Start 10/07/16 at 15:45 Morphine Sulfate 2 mg PRN Q2HR PRN IV PAIN Last administered on 10/16/16 09:07 ; Start 10/07/16 at 15:45 Tramadol HCl (Ultram) 50 mg PRN Q6HRS PRN PO PAIN Last administered on 17:46; Start 10/07/16 at 15:45 Hydralazine HCl (Apresoline) 10 mg PRN Q4HRS PRN IVP ELEVATED BP, SEE COMMENTS ; Start 10/07/16 at 15:45 Docusate Sodium (Colace) 100 mg PRN DAILY PRN PO CONSTIPATION; Start 10/07/16 at 15:45; Stop 10/14/16 at 11:58; Status DC Albuterol/ Ipratropium (Duoneb) 3 ml RTQID NEB Last administered on 10/16/16 11 :23; Start 10/07/16 at 16:00 Albuterol Sulfate (Ventolin Neb Soln) 2.5 mg PRN Q2HR PRN NEB SHORTNESS OF BREATH; Start 10/07/16 at 15:45 Guaifenesin (Mucinex) 600 mg BID PO Last administered on 10/09/16 20:58; Start 10/07/16 at 21:00; Stop 10/13/16 at 11:49; Status DC Nicotine (Nicoderm Cq 7mg) 1 patch PRN DAILY PRN TD SMOKING CESSATION; Start at 15:45 Heparin Sodium (Porcine) (Heparin Sq) 5,000 unit Q8HRS SQ Last administered on 10/07/16 21:17; Start 10/07/16 at 22:00; Stop 10/07/16 at 23:07; Status DC Throat Lozenges (Cepacol Sore Throat Lozenge) 1 moises PRN Q2HRS PRN PO SORE THROAT Last administered on 10/13/16 23:44; Start 10/07/16 at 15:45 Magnesium Sulfate/ Dextrose 50 ml @ 25 mls/hr 1X ONCE IV Last administered on 10/07/16 16:03; Start 10/07/16 at 15:45; Stop 10/07/16 at 17:44; Status DC Lidocaine/Sodium Bicarbonate (Buffered Lidocaine 1%) 20 ml STK-MED ONCE IJ ; Start 10/08/16 at 12:39; Stop 10/08/16 at 12:40; Status DC Midazolam HCl (Versed) 5 mg STK-MED ONCE .ROUTE ; Start 10/08/16 at 13:05; Stop 10/08/16 at 13:06; Status DC Fentanyl Citrate (Fentanyl 5ml Vial) 250 mcg STK-MED ONCE .ROUTE ; Start at 13:05; Stop 10/08/16 at 13:06; Status DC Lidocaine/Sodium Bicarbonate (Buffered Lidocaine 1%) 9 ml 1X ONCE IJ Last administered on 10/08/16 13:41; Start 10/08/16 at 13:30; Stop 10/08/16 at 13:32 ; Status DC Midazolam HCl (Versed) 1 mg 1X ONCE IV Last administered on 10/08/16 13:42; Start 10/08/16 at 13:30; Stop 10/08/16 at 13:32; Status DC Fentanyl Citrate (Fentanyl 5ml Vial) 50 mcg 1X ONCE IV Last administered on 13:42; Start 10/08/16 at 13:30; Stop 10/08/16 at 13:32; Status DC Iohexol (Omnipaque 300 Mg/ml) 75 ml 1X ONCE IV Last administered on 10/09/16 11:58; Start 10/09/16 at 11:45; Stop 10/09/16 at 11:46; Status DC Info (Do NOT chart on this entry -- for MONITORING) 1 each PRN DAILY PRN MC SEE COMMENTS; Start 10/09/16 at 11:45; Stop 10/11/16 at 11:44; Status DC Diphenhydramine HCl (Benadryl) 50 mg 1X ONCE IVP Last administered on 18:24; Start 10/09/16 at 18:15; Stop 10/09/16 at 18:16; Status DC Methylprednisolone Sodium Succinate (SOLU-Medrol 40MG VIAL) 40 mg 1X ONCE IV Last administered on 10/09/16 18:24; Start 10/09/16 at 18:15; Stop 10/09/16 at 18:16; Status DC Midazolam HCl (Versed) 2 mg PRN 1X PRN IV PRIOR TO PROCEDURE; Start 10/10/16 at 09:45; Stop 10/11/16 at 09:44; Status DC Fentanyl Citrate (Fentanyl 2ml Vial) 25 mcg PRN Q5MIN PRN IV X 2 DOSES FOR PAIN ; Start 10/10/16 at 09:45; Stop 10/11/16 at 09:44; Status DC Fentanyl Citrate (Fentanyl 2ml Vial) 50 mcg PRN Q5MIN PRN IV X 2 DOSES FOR PAIN ; Start 10/10/16 at 09:45; Stop 10/11/16 at 09:44; Status DC Ringer's Solution 1,000 ml @ 125 mls/hr Q8H IV ; Start 10/10/16 at 09:43; Stop 10/10/16 at 21:42; Status DC Lidocaine HCl 2 ml 1X PRN PRN ID IV START; Start 10/10/16 at 09:45; Stop at 09:44; Status DC Propofol 40 ml @ As Directed STK-MED ONCE IV ; Start 10/10/16 at 10:44; Stop at 10:45; Status DC Lidocaine HCl (Lidocaine Pf 2% Vial) 5 ml STK-MED ONCE .ROUTE ; Start 10/10/16 at 10:44; Stop 10/10/16 at 10:45; Status DC Propofol 100 ml @ As Directed STK-MED ONCE IV ; Start 10/10/16 at 11:42; Stop 10/10/16 at 11:43; Status DC Midazolam HCl 100 ml @ As Directed STK-MED ONCE IV ; Start 10/10/16 at 12:17; Stop 10/10/16 at 12:18; Status DC Enoxaparin Sodium (Lovenox 40mg Syringe) 40 mg Q24H SQ ; Start 10/11/16 at 10:00 ; Stop 10/11/16 at 10:00; Status DC Famotidine (Pepcid) 20 mg QHS IVP Last administered on 10/14/16 20:38; Start at 21:00; Stop 10/15/16 at 13:36; Status DC Amino Acids/ Glycerin/ Electrolytes 1,000 ml @ 80 mls/hr [id number] IV Last administered on 10/15/16 05:46; Start 10/10/16 at 14:00; Stop 10/15/16 at 16:25; Status DC Midazolam HCl 100 ml @ As Directed STK-MED ONCE IV ; Start 10/10/16 at 16:07; Stop 10/10/16 at 16:08; Status DC Fentanyl Citrate 30 ml @ 0 mls/hr CONT PRN PRN IV PROTOCOL Last administered on 10/11/16 03:36; Start 10/10/16 at 16:30; Stop 10/14/16 at 11:58; Status DC Midazolam HCl 100 ml @ 0 mls/hr CONT PRN IV SEE I/O RECORD Last administered on 10/11/16 03:35; Start 10/10/16 at 16:30; Stop 10/14/16 at 11:58; Status DC Pamidronate Disodium 90 mg/ Sodium Chloride 250 ml @ 83.333 mls/ hr 1X ONCE IV Last administered on 10/10/16 17:29; Start 10/10/16 at 17:00; Stop at 19:59; Status DC Sodium Chloride 1,000 ml @ 125 mls/hr Q8H IV Last administered on 10/13/16 04: 48; Start 10/10/16 at 21:00; Stop 10/13/16 at 13:40; Status DC Epinephrine (S2 Racepinephrine) 0.5 ml 1X ONCE NEB Last administered on 07:55; Start 10/11/16 at 15:30; Stop 10/11/16 at 15:31; Status DC Lorazepam (Ativan) 0.5 mg PRN Q6HRS PRN IV ANXIETY / AGITATION Last administered on 10/11/16 15:39; Start 10/11/16 at 15:30 Lorazepam (Ativan) 0.25 mg PRN Q6HRS PRN IV ANXIETY / AGITATION; Start 10/11/16 at 15:30 Methylprednisolone Sodium Succinate (SOLU-Medrol 125MG VIAL) 60 mg Q6HRS IV Last administered on 10/16/16 11:42; Start 10/11/16 at 15:30 Amlodipine Besylate (Norvasc) 10 mg DAILY PO Last administered on 10/16/16 08: 27; Start 10/14/16 at 09:00 Amlodipine Besylate (Norvasc) 10 mg 1X ONCE PO Last administered on 10/13/16 23:44; Start 10/13/16 at 23:45; Stop 10/13/16 at 23:46; Status DC Docusate Sodium (Colace) 100 mg DAILY PO Last administered on 10/16/16 08:26; Start 10/14/16 at 11:00 Polyethylene Glycol (miraLAX PACKET) 17 gm PRN DAILY PRN PO CONSTIPATION; Start 10/14/16 at 10:00 Magnesium Hydroxide (Milk Of Magnesia) 2,400 mg PRN DAILY PRN PO CONSTIPATION; Start 10/14/16 at 10:00 Clonidine HCl (Catapres) 0.1 mg PRN Q1HR PRN PO HYPERTENSION, SEE COMMENTS; Start 10/14/16 at 10:00 Guaifenesin (Robitussin Dm) 10 ml PRN Q6HRS PRN PO COUGH Last administered on 23:07; Start 10/14/16 at 12:00 Docusate Sodium (Colace) 100 mg DAILY PO ; Start 10/14/16 at 12:30; Status UNV Polyethylene Glycol (miraLAX PACKET) 17 gm DAILY PO Last administered on 08:27; Start 10/14/16 at 12:30 Magnesium Hydroxide (Milk Of Magnesia) 2,400 mg PRN DAILY PRN PO CONSTIPATION; Start 10/14/16 at 12:00; Stop 10/14/16 at 12:00; Status DC Enoxaparin Sodium (Lovenox 40mg Syringe) 40 mg Q24H SQ Last administered on 10/15 12:19; Start 10/14/16 at 13:00 Famotidine (Pepcid) 20 mg QHS PO Last administered on 10/15/16 21:02; Start 10/15/16 at 21:00 Active Scripts Active No Active Prescriptions or Reported Medications Vitals/I & O Vital Sign - Last 24 Hours 10/15/16 10/15/16 10/15/16 10/15/16 15:00 15:11 18:13 19:00 Temp 97.2 97.7 97.2 97.7 Pulse 79 86 Resp 22 20 B/P (MAP) 139/76 (97) 133/86 (102) Pulse Ox 97 96 99 O2 Delivery Nasal Cannula Nasal Cannula Nasal Cannula Nasal Cannula O2 Flow Rate 2.0 3.0 3.0 10/15/16 10/15/16 10/15/16 10/15/16 19:05 19:29 23:00 23:08 Temp 98.2 98.2 Pulse 85 Resp 20 20 B/P (MAP) 135/93 (107) Pulse Ox 95 99 O2 Delivery Nasal Cannula Nasal Cannula Nasal Cannula Nasal Cannula O2 Flow Rate 2.0 3.0 3.0 2.0 10/16/16 10/16/16 10/16/16 10/16/16 03:00 05:44 06:10 07:00 Temp 97.8 97.6 97.8 97.6 Pulse 81 77 Resp 20 18 20 18 B/P (MAP) 136/95 (109) 130/82 (98) Pulse Ox 94 94 95 O2 Delivery Nasal Cannula Nasal Cannula Nasal Cannula O2 Flow Rate 3.0 2.0 2.0 10/16/16 10/16/16 10/16/16 10/16/16 08:00 08:10 08:27 09:07 Pulse 77 B/P (MAP) 130/82 Pulse Ox 98 98 O2 Delivery Nasal Cannula Nasal Cannula Nasal Cannula O2 Flow Rate 2.0 2.0 2.0 10/16/16 10/16/16 10/16/16 10:10 11:00 11:24 Temp 97.8 97.8 Pulse 81 Resp 18 B/P (MAP) 130/77 (94) Pulse Ox 98 93 O2 Delivery Nasal Cannula Nasal Cannula Room Air O2 Flow Rate 2.0 2.0 Intake and Output 10/15/16 10/15/16 10/16/16 15:00 23:00 07:00 Intake Total 920 ml 1330 ml 360 ml Output Total 500 ml 300 ml Balance 420 ml 1030 ml 360 ml ASYA CASTAÑEDA MD Oct 16, 2016 12:02
[2016-10-16] MEDS: ENOXAPARIN 40 MG/0.4 ML SYRINGE. SQ SCH (12:50)
[2016-10-16] MEDS ORDERED: ACET325T9 PO (15:07)
[2016-10-16] MEDS ORDERED: ALBU2.5V14 NEB (15:08)
[2016-10-16] MEDS ORDERED: FAMO20TA5 PO (15:10)
[2016-10-16] MEDS ORDERED: DOCU100C28 PO (15:10)
[2016-10-16] MEDS ORDERED: BENZ1LOZ48 MM (15:10)
[2016-10-16] MEDS ORDERED: POLY255P PO (15:12)
[2016-10-16] MEDS ORDERED: AMLO10TA2 PO (15:12)
[2016-10-16] MEDS ORDERED: CLON0.1T PO (15:14)
[2016-10-16] MEDS ORDERED: GUAI237L83 PO (15:17)
[2016-10-16] MEDS ORDERED: TRAM50TA PO (15:18)
[2016-10-17] MEDS ORDERED: predniSONE 20 MG TABLET PO SCH (09:00)
[2016-10-20] MEDS ORDERED: predniSONE 10 MG TABLET PO SCH (09:00)
[2016-10-23] MEDS ORDERED: predniSONE 20 MG TABLET PO SCH (09:00)
--- NOTE | 2016-10-23 17:13 | PDOC3 ---
Discharge Summary* Date of Discharge: Oct 16, 2016 Final Diagnosis 1. 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 Pleural effusion: neg cytology but suspect malignant 3. pulm nodules: stage 4 metasis 4. 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 Respiratory arrest at EGD: extubated successfully 10/12 6. SIRS: likely 2/2 viral URI 7. Leukocytosis 8. Malnutrition 8. Hypomagnesemia 9. CHF. compensated now (10/14) 10. abnormal TSH 11. smoker Brief Hospital Course A 56-year-old -[place] female patient presented to the hospital with shortness of breath, initial imaging studies suggestive of pleural effusion later repeat CT is concerning for malignancy. During hospitalization she was seen by pulmonology and oncology and gastroenterology, she is diagnosed with Esophageal squamous cell carcinoma, likely stage IV given pleural nodules and large reaccumulating left pleural effusion. As per oncology, her prognosis is poor and patient's life expectancy less than 6 months. She was seen by palliative team, all physicians agreed that patient will be benefited with comfort care measures. She has been discharged to hospice. Patient is uninsured , if she changes her mind she can see Dr. Eric in the clinic. Discharge exam please see my progress note Discharge condition stable Discharge follow-up primary care doctor Prognosis poor/ guarded Medications: Please see discharge instructions Scheduled Amlodipine Besylate (Amlodipine Besylate), 10 MG PO DAILY, (Reported) Docusate Sodium (Docusate Sodium), 1 CAP PO DAILY, (Reported) Famotidine (Famotidine), 20 MG PO HS, (Reported) Polyethylene Glycol 3350 (Polyethylene Glycol 3350), 17 GM PO DAILY, (Reported) Scheduled PRN Acetaminophen (Tylenol), 2 TAB PO PRN Q6HRS PRN for Fever, (Reported) Albuterol Sulfate (Albuterol Sulfate Conc Neb Soln), 2.5 MG NEB PRN Q2HR PRN for SHORTNESS OF BREATH, (Reported) Benzocaine/Menthol (Cepacol Sore Throat Lozenge), 1 EACH MM PRN Q2HR PRN for Sore Throat, (Reported) Clonidine Hcl (Clonidine Hcl), 1 TAB PO PRN Q1HR PRN for ELEVATED BP, SEE COMMENTS, (Reported) Guaifenesin/Dextromethorphan (Robitussin Cough-Chest Dm Liq), 10 ML PO PRN Q6HRS PRN for COUGH, (Reported) Tramadol Hcl (Tramadol Hcl), 50 MG PO Q6H PRN for PAIN, (Reported) Time Spent Total time spent with patient [33] minutes for coordination of care, counseling , and education. ASYA CASTAÑEDA MD Oct 23, 2016 17:13
[2016-10-26] MEDS ORDERED: predniSONE 10 MG TABLET PO SCH (09:00)
[2016-10-29] MEDS ORDERED: predniSONE 5 MG TABLET PO SCH (09:00)
== END 2016-10-16 16:06 | disposition hospice, home (50) | DRG 374 ==
LOC: ER 12:49 → 6 SOUTH 14:45 → OBSVTOIN 15:54 → 1 WEST ICU 10-10 11:41 → 5 NORTH 10-13 15:22
PROVIDERS: ADMIT Internal Medicine; ATTEND Internal Medicine
PROC: 0W9B3ZX Drainage of Left Pleural Cavity, Percutaneous Approach, Diagnostic (ICD-10-PCS; 2016-10-08)
PROC: 0BH17EZ Insertion of Endotracheal Airway into Trachea, Via Natural or Artificial Opening (ICD-10-PCS; 2016-10-10)
PROC: 5A1935Z Respiratory Ventilation, Less than 24 Consecutive Hours (ICD-10-PCS; 2016-10-10)
PROC: 0DB58ZX Excision of Esophagus, Via Natural or Artificial Opening Endoscopic, Diagnostic (ICD-10-PCS; principal; 2016-10-10 10:30)
DX: C15.9 Malignant neoplasm of esophagus, unspecified (principal); J96.01 Acute respiratory failure with hypoxia; R09.2 Respiratory arrest; J91.0 Malignant pleural effusion; E46 Unspecified protein-calorie malnutrition; I50.30 Unspecified diastolic (congestive) heart failure; R65.10 Systemic inflammatory response syndrome (SIRS) of non-infectious origin without acute organ dysfunction; J20.8 Acute bronchitis due to other specified organisms; E83.42 Hypomagnesemia; E83.52 Hypercalcemia; Z68.27 Body mass index [BMI] 27.0-27.9, adult; F10.10 Alcohol abuse, uncomplicated; F17.210 Nicotine dependence, cigarettes, uncomplicated; K59.00 Constipation, unspecified; R13.10 Dysphagia, unspecified; Z51.5 Encounter for palliative care; Z66 Do not resuscitate; Z82.3 Family history of stroke; R91.1 Solitary pulmonary nodule
CPT/HCPCS: 32555; 36415; 36600; 71010; 71035; 71260; 74177; 80048; 80076; 81001; 82306; 82310; 82553; 82805; 82945; 82962; 83615; 83690; 83735; 83880; 83986; 84157; 84439; 84443; 84478; 84484; 85007; 85027; 85379; 85610; 87071; 87075; 87086; 87116; 87205; 87641; 88112; 88305; 89050; 93005; 93306; 94002; 94003; 94250; 94640; 94760; 96365; 99406; A4215; C1729; C1892; C1894; G0379; G0481; J1200; J1650; J2001; J2060; J2250; J2270; J2405; J2430; J2704; J2920; J2930; J3010; J7030; J7050; J7060; J7620; Q9967; S0028; 97110; 97116; 99285-25